=== PATIENT | male | born 1945 | race American Indian/Alaskan Native ===

== ENCOUNTER 2019-01-24 04:40 | Inpatient (IN) | payer MEDICARE, OTHER ==
[~2019-01-24 04:40] MED LIST: KETALAR ONE; ZEMURON IV ONE
[2019-01-24] MEDS ORDERED: NACL 0.9% 500 ML IV PRN (05:00)
[2019-01-24] MEDS ORDERED: SUBLIMAZE IV PRN (05:00)
[2019-01-24] MEDS ORDERED: MIDAZOLAM 100 MG in NACL 0.9% 80 ML IV SCH (05:00)
[2019-01-24] MEDS ORDERED: VASELINE LIP THERAPY TP PRN (05:00)
[2019-01-24] MEDS ORDERED: fentaNYL DRIP Premix 2,000 MCG/100 ML BAG IV SCH (05:00)
[2019-01-24] MEDS ORDERED: ARTIFICIAL TEARS OPHTH OINT OU PRN (05:00)
[2019-01-24] MEDS ORDERED: VERSED IV PRN (05:00)
[2019-01-24] MEDS ORDERED: NACL 0.9% 1000 ML IV ONE (05:04)
--- NOTE | 2019-01-24 05:54 | Emergency Department Report ---
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 As per EMS verbal report, the patient's called 911. EMS reports the patient was hypoxic in the field. EMS reports the patient had no trauma. EMS reports the patient was somnolent and obtunded in the field, and they placed a nasopharyngeal airway, and applied bag valve mask ventilation. Upon arrival to the emergency room, the patient is receiving bag assisted ventilation, is delirious and somnolent. He is not protecting his airway. He is placed on nasal cannula at 15 L/m, and continues to receive bag valve mask ventilation in conjunction. He is then sat up to 30, and his lungs are re current. He is then introduced with 300 mg of ketamine, direct laryngoscopy performed, however patient had laryngeal spasm. He is then paralyzed with 150 mg of rocuronium, and using video laryngoscopy, a 7.5 endotracheal tube is inserted, under direct visualization of the cords, with good postintubation color change, and appropriate breath sounds bilaterally. Postintubation x-ray confirms placement of endotracheal tube. No additional family is available at this time. Patient is currently intubated and sedated, x-ray of the chest appears to show a large right-sided pneumonia, left perihilar pneumonia. Discussed the case with critical care physician, Dr. Bar, who agrees with plan of admission to the intensive care unit, assuming no findings elucidated during his ER workup that would mandate transfer to another facility. -: This evening Severity scale (0 -10): 0 Quality: other Consistency: other Improves with: other Worsens with: other Associated Symptoms: other - Related Data Home Medications Medication Instructions Recorded Confirmed Last Taken Aspirin [Aspirin BABY CHEW TAB] 81 mg PO DAILY 09/13/14 09/13/14 09/13/14 Doxazosin Mesylate 8 mg PO DAILY 09/13/14 09/13/14 09/13/14 Lisinopril [Zestril TAB] 20 mg PO DAILY 09/13/14 09/13/14 09/13/14 Metoprolol [Lopressor TAB] 25 mg PO DAILY 09/13/14 09/13/14 09/13/14 Multivit-Min/FA/Lycopen/Lutein 1 each PO DAILY 09/13/14 09/13/14 09/13/14 [Century Adults 50+ Tablet] Olmesartan/Amlodipin/Hcthiazid 1 each PO DAILY 09/13/14 09/13/14 09/13/14 [Tribenzor 20-5-12.5 mg] glyBURIDE [Diabeta] 5 mg PO DAILY 09/13/14 09/13/14 09/13/14 Allergies Allergy/AdvReac Type Severity Reaction Status Date / Time No Known Allergies Allergy Verified 09/13/14 23:38 ED Review of Systems ROS: Stated complaint: UNRESPONSIVE Other details as noted in HPI Comment: Unobtainable due to pts medical conditions ED Past Medical Hx - Past Medical History Previous Medical History?: Yes Hx Hypertension: Yes Hx Diabetes: Yes Additional medical history: BORN w/PELVIC RT KIDNEY - Surgical History Past Surgical History?: Yes Additional Surgical History: RT ARM SURGERY 2013 - Social History Smoking Status: Unknown if ever smoked - Medications Home Medications: Home Medications Medication Instructions Recorded Confirmed Last Taken Type Aspirin [Aspirin BABY CHEW TAB] 81 mg PO DAILY 09/13/14 09/13/14 09/13/14 Histor y Doxazosin Mesylate 8 mg PO DAILY 09/13/14 09/13/14 09/13/14 History Lisinopril [Zestril TAB] 20 mg PO DAILY 09/13/14 09/13/14 09/13/14 History Metoprolol [Lopressor TAB] 25 mg PO DAILY 09/13/14 09/13/14 09/13/14 History Multivit-Min/FA/Lycopen/Lutein 1 each PO DAILY 09/13/14 09/13/14 09/13/14 History [Century Adults 50+ Tablet] Olmesartan/Amlodipin/Hcthiazid 1 each PO DAILY 09/13/14 09/13/14 09/13/14 History [Tribenzor 20-5-12.5 mg] glyBURIDE [Diabeta] 5 mg PO DAILY 09/13/14 09/13/14 09/13/14 History ED Physical Exam - General Limitations: Altered Mental Status General appearance: lethargic, obtunded, in distress, obese - Eye Eye exam: Present: normal appearance - ENT ENT exam: Present: mucous membranes dry - Neck Neck exam: Present: normal inspection - Respiratory Respiratory exam: Present: respiratory distress, decreased breath sounds - Cardiovascular Cardiovascular Exam: Present: regular rate, normal rhythm, normal heart sounds. Absent: bradycardia, tachycardia, irregular rhythm - GI/Abdominal GI/Abdominal exam: Present: soft. Absent: distended, tenderness, guarding, rebound, rigid, pulsatile mass - Rectal Rectal exam: Present: normal inspection - exam: Present: normal inspection External exam: Present: normal external exam - Extremities Exam Extremities exam: Present: pedal edema, other (2+ pulses noted in the bilateral upper, lower extremities. Compartments soft. No long bony tenderness. The pelvis is stable.). Absent: calf tenderness - Neurological Exam Neurological exam: Present: altered, other (occasionally moves 4 extremities prior to intubation. Makes nonsensical sounds. Unable to complete detailed neurologic examination secondary to delirium) - Psychiatric Psychiatric exam: Present: agitated - Skin Skin exam: Present: dry ED Course Vital Signs 01/24/19 01/24/19 05:14 05:29 Pulse Rate 93 H Pulse Rate [ 87 Intra-Procedure ] Pulse Rate [ 89 Post-Procedure] Pulse Rate [Pre 104 H -Procedure] Respiratory 8 L Rate [Intra- Procedure] Respiratory 19 Rate [Post- Procedure] Respiratory 34 H Rate [Pre- Procedure] Blood Pressure 210/72 Blood Pressure 160/75 [Intra- Procedure] Blood Pressure 167/78 [Post-Procedure ] Blood Pressure 186/113 [Pre-Procedure] O2 Sat by Pulse 100 Oximetry O2 Sat by Pulse 100 Oximetry [ Intra-Procedure ] O2 Sat by Pulse 93 Oximetry [Post -Procedure] O2 Sat by Pulse 95 Oximetry [Pre- Procedure] - Reevaluation(s) Reevaluation #1: 01/24/19 05:56 Differential diagnosis, including but not limited to: Pneumonia, pulmonary embolus, intracranial hemorrhage, bacteremia, viremia, uremia, urinary tract infection Assessment and plan: 73-year-old gentleman, tachycardic, hypoxic with respiratory failure, felt to be hypothermic, meets sepsis criteria. The patient will be resuscitated according to the sepsis pathway. Given appropriate antibiotic therapy for presumed community-acquired pneumonia. CT scan of the brain, chest are pending at this time. Laboratory studies pending at this time. care transferred to Dr Shari Bee, to follow up on laboratory studies and CT scan findings, and contact the inpatient team to arrange admission once initial diagnostics have resulted. No family available at this time, upperis markedly guarded. - Intubation Time Out Performed: No (emergency situation) Sedative: Ketamine Mg Given: 300 Paralytic: Rocuronium Mg Given: 150 Laryngoscope: fiberoptic video scope Size: 4 Assist Device Used: other ET Tube Size: 7.5 Tube Secured Depth (cm): 23 Tube Secured Location: teeth Tube Placement Confirmation: visualized tube passing t, equal breath sounds bilat, no breath sounds over epi, confirmation by capnometr Patient Tolerated Procedure: well Intubation Complications: difficult intubation ED Medical Decision Making - Lab Data Vital Signs 01/24/19 01/24/19 05:14 05:29 Pulse Rate 93 H Pulse Rate [ 87 Intra-Procedure ] Pulse Rate [ 89 Post-Procedure] Pulse Rate [Pre 104 H -Procedure] Respiratory 8 L Rate [Intra- Procedure] Respiratory 19 Rate [Post- Procedure] Respiratory 34 H Rate [Pre- Procedure] Blood Pressure 210/72 Blood Pressure 160/75 [Intra- Procedure] Blood Pressure 167/78 [Post-Procedure ] Blood Pressure 186/113 [Pre-Procedure] O2 Sat by Pulse 100 Oximetry O2 Sat by Pulse 100 Oximetry [ Intra-Procedure ] O2 Sat by Pulse 93 Oximetry [Post -Procedure] O2 Sat by Pulse 95 Oximetry [Pre- Procedure] Critical Care Time: Yes Critical care time in (mins) excluding proc time.: 45 Critical care attestation.: If time is entered above; I have spent that time in minutes in the direct care of this critically ill patient, excluding procedure time. ED Disposition Clinical Impression: Systemic inflammatory response syndrome (SIRS), Respiratory failure Disposition: -09 OP ADMIT IP TO THIS HOSP Is pt being admited?: Yes Condition: Critical Referrals: GELA RESTREPO MD [Primary Care Provider] - 3-5 Days
[2019-01-24] MEDS ORDERED: NACL 0.9% 1000 ML 1,000 ML IV ONE (05:58)
[2019-01-24 05:59] LABS: Albumin 4.1 g/dL (3.9-5); Calcium 8.4 mg/dL (8.4-10.2)
[2019-01-24] MEDS ORDERED: ZITHROMAX 500 MG in NACL 0.9% 250ML 250 ML IV SCH (06:00)
[2019-01-24] MEDS ORDERED: ROCEPHIN/NS 2 GM/100 ML 2 GM/100 ML BAG IV ONE (06:00)
[2019-01-24] MEDS ORDERED: ZITHROMAX 500 MG in NACL 0.9% 250ML 250 ML IV ONE (06:00)
[2019-01-24 06:02] LABS: Basophils % (Auto) 0.5 % (0.0-1.8); Eosinophils # (Auto) 0.2 K/mm3 (0.0-0.4); Eosinophils % (Auto) 3.6 % (0.0-4.3); Hemoglobin 10.4 gm/dl (11.8-15.2); Lymphocytes # (Auto) 0.7 K/mm3 (1.2-5.4); Lymphocytes % (Auto) 11.1 % (13.4-35.0); Mean Corpuscular HGB Conc 35 % (32-34); Mean Corpuscular Volume 88 fl (84-94); Monocytes # (Auto) 0.6 K/mm3 (0.0-0.8); Monocytes % (Auto) 8.7 % (0.0-7.3); Platelet Count 164 K/mm3 (140-440); Red Cell Distribution Width 13.6 % (13.2-15.2)
[2019-01-24] MEDS ORDERED: NORMODYNE IV ONE (06:06)
[2019-01-24 06:07] LABS: INR 1.03 (0.87-1.13)
[2019-01-24 06:11] LABS: Bilirubin,Urine NEG (Negative); Blood,Urine MOD (Negative); Color,Urine Straw (Yellow); Granular Casts,Urine 6 /LPF; Hyaline Casts,Urine 1 /LPF; Mucus,Urine FEW /HPF; Urobilinogen,Urine < 2.0 mg/dL (<2.0)
[2019-01-24 06:24] LABS: RBC,Urine > 182.0 /HPF (0.0-6.0)
[2019-01-24] MEDS: CARDENE 50 MG in NACL 0.9% 250ML 230 ML IV SCH ×2 (07:45→17:18)
--- NOTE | 2019-01-24 08:48 | History and Physical Report ---
History of Present Illness Date of examination: 01/24/19 Date of admission: 01/24/19 07:42 Chief complaint: Unresponsiveness and acute respiratory failure, History of present illness: History obtained from ER medical records Patient intubated unable to give history, no family available 73-year-old morbidly obese male patient with significant history of diabetes was found appended hypoxic and unresponsive Severe shortness of breath by EMS, placed nasopharyngeal airway Patient was brought to the emergency room with altered level of consciousness and responsiveness and acute respiratory failure patient was found to be severely hypoxemic, promptly intubated by the ER physician Patient was noted to have hypertensive emergency, with very high blood pressures No other history available Past History Past Medical History: diabetes, hypertension Past Surgical History: No surgical history Social history: full code. denies: smoking, alcohol abuse, IV drug use Family history: no significant family history Medications and Allergies Allergies Allergy/AdvReac Type Severity Reaction Status Date / Time No Known Allergies Allergy Verified 09/13/14 23:38 Home Medications Medication Instructions Recorded Confirmed Last Taken Type Aspirin [Aspirin BABY CHEW TAB] 81 mg PO DAILY 09/13/14 01/24/19 09/13/14 History Doxazosin Mesylate 8 mg PO DAILY 09/13/14 01/24/19 09/13/14 History Lisinopril [Zestril TAB] 20 mg PO DAILY 09/13/14 01/24/19 09/13/14 History Metoprolol [Lopressor TAB] 25 mg PO DAILY 09/13/14 01/24/19 09/13/14 History Multivit-Min/FA/Lycopen/Lutein 1 each PO DAILY 09/13/14 01/24/19 09/13/14 History [Century Adults 50+ Tablet] Olmesartan/Amlodipin/Hcthiazid 1 each PO DAILY 09/13/14 01/24/19 09/13/14 History [Tribenzor 20-5-12.5 mg] glyBURIDE [Diabeta] 5 mg PO DAILY 09/13/14 01/24/19 09/13/14 History Active Meds: Active Medications Fentanyl (Sublimaze) 50 mcg IV Q10MIN PRN PRN Reason: ANALGESIA Last Admin: 01/24/19 06:26 Dose: 50 mcg Documented by: Hydrophilic Ointment (Vaseline Lip Therapy) 1 applic TP Q2HR PRN PRN Reason: Dry Lips Fentanyl Citrate (Fentanyl Drip Premix) 2,000 mcg in 100 mls @ 6.804 mls/hr IV TITR ESCOBAR; Protocol Last Titration: 01/24/19 08:47 Dose: 0.29 mcg/kg/hr, 2 mls/hr Documented by: Midazolam HCl 100 mg/ Sodium (Chloride) 100 mls @ 2 mls/hr IV TITR ESCOBAR; Protocol Last Titration: 01/24/19 08:02 Dose: 3 mg/hr, 3 mls/hr Documented by: Nicardipine HCl 50 mg/ Sodium (Chloride) 250 mls @ 25 mls/hr IV TITR ESCOBAR; Protocol Last Titration: 01/24/19 08:19 Dose: 7.5 mg/hr, 37.5 mls/hr Documented by: Midazolam HCl (Versed) 2 mg IV Q10MIN PRN PRN Reason: Sedation Last Admin: 01/24/19 06:11 Dose: 2 mg Documented by: Multi-Ingred Cream/Lotion/Oil/Oint (Artificial Tears Ophth Oint) 1 applic OU Q4HR PRN PRN Reason: Dry Eye(s) Sodium Chloride (Nacl 0.9% 500 Ml) 5 ml IV DIRECT PRN 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 Systems ROS unobtainable: due to mental status Exam - Constitutional Vitals: Temp Pulse Resp BP Pulse Ox 89 20 189/71 96 01/24/19 08:25 01/24/19 08:25 01/24/19 08:25 01/24/19 08:25 General appearance: Present: mild distress, well-nourished, obese (morbidly obese) - EENT Eyes: Present: PERRL, EOM intact - Neck Neck: Present: supple - Respiratory Respiratory effort: labored Respiratory: bilateral: diminished, rhonchi, negative: rales, wheezing - Cardiovascular Rhythm: regular Heart Sounds: Present: S1 & S2 - Extremities Extremities: no ischemia Extremity abnormal: edema - Abdominal General gastrointestinal: Present: soft, non-tender, non-distended, normal bowel sounds Results - Labs CBC & Chem 7: 01/24/19 05:20 01/24/19 05:20 Labs: Abnormal lab results 01/24/19 01/24/19 01/24/19 Range/Units 05:20 05:20 05:20 RBC 3.40 L (3.65-5.03) M/mm3 Hgb 10.4 L (11.8-15.2) gm/dl Hct 30.0 L (35.5-45.6) % MCHC 35 H (32-34) % Lymph % (Auto) 11.1 L (13.4-35.0) % [place] % (Auto) 8.7 H (0.0-7.3) % Lymph # 0.7 L (1.2-5.4) K/mm3 Seg Neutrophils % 76.1 H (40.0-70.0) % POC ABG pH (7.35-7.45) POC ABG pCO2 (35-45) POC ABG pO2 (80-105) Carbon Dioxide 20 L (22-30) mmol/L BUN 69 H (9-20) mg/dL Creatinine 6.5 H (0.8-1.5) mg/dL Glucose 213 H (75-100) mg/dL Magnesium 2.70 H (1.7-2.3) mg/dL 01/24/19 01/24/19 Range/Units 05:45 08:26 RBC (3.65-5.03) M/mm3 Hgb (11.8-15.2) gm/dl Hct (35.5-45.6) % MCHC (32-34) % Lymph % (Auto) (13.4-35.0) % [place] % (Auto) (0.0-7.3) % Lymph # (1.2-5.4) K/mm3 Seg Neutrophils % (40.0-70.0) % POC ABG pH 7.285 L 7.349 L (7.35-7.45) POC ABG pCO2 50.6 H (35-45) POC ABG pO2 337 H (80-105) Carbon Dioxide (22-30) mmol/L BUN (9-20) mg/dL Creatinine (0.8-1.5) mg/dL Glucose (75-100) mg/dL Magnesium (1.7-2.3) mg/dL Assessment and Plan --Acute hypoxic hypercapnic respiratory failure; requiring intubation Continue ventilatory support, nebulizers, IV steroids, IV antibiotics ED already consulted pulmonary critical --Hypertensive emergency; resume multiple antihypertensives IV hydralazine, cardine drip per protocol --Metabolic encephalopathy; multifactorial Closely monitor --Acute kidney injury; secondary to ATN Creatinine 6.5, unknown baseline, gentle hydration, nephrology already consulted Avoid nephrotoxins, renal ultrasound, supportive care --Type 2 diabetes mellitus; Accu-Chek sliding scale coverage and ADA diet insulin as needed --DVT prophylaxis; heparin renal dose --Full CODE STATUS Admit to ICU, critical care and nephrology already consulted Critical care time 55 minutes.
[2019-01-24] MEDS ORDERED: APRESOLINE IV ONE (09:30)
[2019-01-24] MEDS ORDERED: ZESTRIL PO SCH (10:00)
--- NOTE | 2019-01-24 10:06 | Cat Scan Report ---
CT HEAD WITHOUT CONTRAST: HISTORY: Altered mental status, respiratory failure. TECHNIQUE: Sequential CT images without contrast. FINDINGS: Mild diffuse volume loss and chronic ischemic changes in the white matter are identified. Subtle chronic cortical infarcts are identified in the left frontal and parietal cortex. This appears to be within the left watershed region. A chronic 8mm infarct is noted in the lateral left basal ganglia. There is no evidence for hemorrhage, mass or extra-axial fluid collection. No large areas of acute ischemia is suspected on noncontrast CT. Ventricular size is within normal limits. There is mild diffuse mucosal thickening throughout the ethmoid and maxillary sinuses. The remaining sinuses and mastoid air cells are clear. IMPRESSION: Evidence of atrophy and microangiopathic ischemic disease. 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 No acute intracranial process is identified.
--- NOTE | 2019-01-24 10:09 | Cat Scan Report ---
CT CHEST WITHOUT CONTRAST: HISTORY: Respiratory failure. COMPARISON: none. TECHNIQUE: Helical CT in 1.25mm intervals without IV contrast. Sagittal and coronal reformatted images. FINDINGS: Thyroid gland: Normal. Tracheobronchial tree: Normal. An endotracheal tube is in good position. Esophagus: Normal. A nasogastric tube terminates in the distal stomach. Heart: Borderline heart size. Pericardium: Normal. Mediastinum: Mild aortic calcifications. No mass or adenopathy. Lung [place]: Mild to moderate bilateral pulmonary edema is suspected. There is compressive atelectasis of both lower lobes. The anterior lungs are adequately aerated. No obvious mass or pneumonia. Pleural Spaces: Moderate layering left pleural effusion. Mild layering right pleural effusion. Musculoskeletal: Mild thoracic spondylosis. No fracture or suspicious bony lesion is identified. IMPRESSION: Borderline heart size, pulmonary congestion and bilateral pleural effusions suggesting CHF. Compressive atelectasis of both lower lobes.
--- NOTE | 2019-01-24 10:56 | Consultation ---
History of Present Illness - Reason for Consult Consult date: 01/24/19 acute renal failure, chronic renal failure - History of Present Illness This is a 73-year-old male who presented to the E.R via EMS for shortness of breath. When EMS arrived patient was found to be Hypoxic with oxygen level in the 80's and somnolent and was subsequently intubated for airway protection. On evaluation patient was found to be in Hypertensive Emergency with BP-226/119. CXR revealed Mild- moderate pulmonary venous congestion. Pertinent labs revealed an elevated serum creatinine of 6.5 and BUN level of 69. Baseline serum creatinine unknown. Patient has history of Hypertension and Diabetes Mellitus. Patient is seen in E.R sedated and intubated. No family at bedside. Called to spoke with POA his niece Marbella Chávez, however phone went to voicemail and her voicemail is full. We are being consulted for management of this patient's Advanced Renal Failure. Past History Past Medical History: diabetes, hypertension Past Surgical History: No surgical history Social history: full code. denies: smoking, alcohol abuse, IV drug use Family history: no significant family history Medications and Allergies Allergies Allergy/AdvReac Type Severity Reaction Status Date / Time No Known Allergies Allergy Verified 09/13/14 23:38 Home Medications Medication Instructions Recorded Confirmed Last Taken Type Aspirin [Aspirin BABY CHEW TAB] 81 mg PO DAILY 09/13/14 01/24/19 09/13/14 History Doxazosin Mesylate 8 mg PO DAILY 09/13/14 01/24/19 09/13/14 History Lisinopril [Zestril TAB] 20 mg PO DAILY 09/13/14 01/24/19 09/13/14 History Metoprolol [Lopressor TAB] 25 mg PO DAILY 09/13/14 01/24/19 09/13/14 History Multivit-Min/FA/Lycopen/Lutein 1 each PO DAILY 09/13/14 01/24/19 09/13/14 Hi story [Century Adults 50+ Tablet] Olmesartan/Amlodipin/Hcthiazid 1 each PO DAILY 09/13/14 01/24/19 09/13/14 History [Tribenzor 20-5-12.5 mg] glyBURIDE [Diabeta] 5 mg PO DAILY 09/13/14 01/24/19 09/13/14 History Active Meds: Active Medications Aspirin (Baby Aspirin) 81 mg PO DAILY ESCOBAR Fentanyl (Sublimaze) 50 mcg IV Q10MIN PRN PRN Reason: ANALGESIA Last Admin: 01/24/19 06:26 Dose: 50 mcg Documented by: Hydralazine HCl (Apresoline) 20 mg IV Q4HR PRN PRN Reason: Hypertension Hydrophilic Ointment (Vaseline Lip Therapy) 1 applic TP Q2HR PRN PRN Reason: Dry Lips Fentanyl Citrate (Fentanyl Drip Premix) 2,000 mcg in 100 mls @ 6.804 mls/hr IV TITR ESCOBAR; Protocol Last Titration: 01/24/19 09:45 Dose: 4 mcg/kg/hr, 27.216 mls/hr Documented by: Midazolam HCl 100 mg/ Sodium (Chloride) 100 mls @ 2 mls/hr IV TITR ESCOBAR; Protocol Last Titration: 01/24/19 08:02 Dose: 3 mg/hr, 3 mls/hr Documented by: Nicardipine HCl 50 mg/ Sodium (Chloride) 250 mls @ 25 mls/hr IV TITR ESCOBAR; Protocol Last Titration: 01/24/19 10:40 Dose: 10 mg/hr, 50 mls/hr Documented by: Lisinopril (Zestril) 20 mg PO DAILY ESCOBAR Metoprolol Tartrate (Lopressor) 25 mg PO DAILY ESCOBAR Midazolam HCl (Versed) 2 mg IV Q10MIN PRN PRN Reason: Sedation Last Admin: 01/24/19 06:11 Dose: 2 mg Documented by: Multi-Ingred Cream/Lotion/Oil/Oint (Artificial Tears Ophth Oint) 1 applic OU Q4HR PRN PRN Reason: Dry Eye(s) Sodium Chloride (Nacl 0.9% 500 Ml) 5 ml IV DIRECT 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 ROS unobtainable: due to endotracheal tube, due to mental status Exam - Vital Signs Vital signs: Vital Signs Pulse Resp 105 H 36 H 01/24/19 04:44 01/24/19 04:44 - General Appearance General appearance: sedated on ventilator, intubated EENT: ATNC Neck: Present: neck supple Respiratory: Decreased Breath Sounds Heart: regular, S1S2 Gastrointestinal: Present: normoactive bowel sounds Integumentary: warm and dry, chronic venous stasis Neurologic: other (Sedated and intubated) Musculoskeletal: Present: joint swelling, other (Has 1-2+ edema to bilateral lower extremities) Results - Lab Results 01/24/19 05:20 01/24/19 05:20 Most recent lab results Calcium 8.4 mg/dL (8.4-10.2) 01/24/19 05:20 Magnesium 2.70 mg/dL (1.7-2.3) H 01/24/19 05:20 Assessment and Plan Severe Renal Failure, could have CKD component from DM and HTN: Volume overloaded: -Baseline serum creatinine unknown -Current serum creatinine is 6.5, BUN 69, GFR 10 ml/min -D/C Lisinopril -Obtain renal ultrasound -Obtain urine lytes -[id number] bilateral pulmonary venous congestion -No IVF due to volume overload -Give Lasix 40 mg IV x 1 -Given advanced renal failure and volume overload, patient may require hemodialysis initiation -Placed call to Marbella CABRAL, no answer when called and voicemail is full. -Will monitor renal function closely Acute hypoxic hypercapnic respiratory failure: -Intubated on vent support -As per Pulmonary Hypertensive emergency: -On Cardizem drip -Monitor blood pressures Type 2 diabetes mellitus -Insulin as per primary team
[2019-01-24] MEDS ORDERED: BABY ASPIRIN ONE (12:33)
[2019-01-24] MEDS ORDERED: LOPRESSOR ONE (12:34)
[2019-01-24] MEDS ORDERED: fentaNYL DRIP Premix 2,000 MCG/100 ML BAG IV ONE (12:37)
[2019-01-24] MEDS ORDERED: LASIX IV ONE (13:00)
[2019-01-24] MEDS: BABY ASPIRIN PO SCH (13:39)
[2019-01-24] MEDS: LOPRESSOR PO SCH (13:39)
[2019-01-24] MEDS ORDERED: LASIX ONE (13:44)
[2019-01-24 13:47] LABS: Alanine Aminotransferase 17 units/L (7-56); Albumin 3.6 g/dL (3.9-5)
[2019-01-24 13:48] LABS: Hepatitis B Surface Antigen Non-Reactive (Negative); Hepatitis C Virus Antibody Non-Reactive (NonReactive)
[2019-01-24 13:49] LABS: Bilirubin,Direct < 0.2 mg/dL (0-0.2)
--- NOTE | 2019-01-24 14:05 | Consultation ---
History of Present Illness Consult date: 01/24/19 Requesting physician: ROSALIND SCHWAB Past History Past Medical History: diabetes, hypertension Past Surgical History: No surgical history Social history: full code. denies: smoking, alcohol abuse, IV drug use Family history: no significant family history Medications and Allergies Allergies Allergy/AdvReac Type Severity Reaction Status Date / Time No Known Allergies Allergy Verified 09/13/14 23:38 Home Medications Medication Instructions Recorded Confirmed Last Taken Type Aspirin [Aspirin BABY CHEW TAB] 81 mg PO DAILY 09/13/14 01/24/19 09/13/14 History Doxazosin Mesylate 8 mg PO DAILY 09/13/14 01/24/19 09/13/14 History Lisinopril [Zestril TAB] 20 mg PO DAILY 09/13/14 01/24/19 09/13/14 History Metoprolol [Lopressor TAB] 25 mg PO DAILY 09/13/14 01/24/19 09/13/14 History Multivit-Min/FA/Lycopen/Lutein 1 each PO DAILY 09/13/14 01/24/19 09/13/14 Histor y [Century Adults 50+ Tablet] Olmesartan/Amlodipin/Hcthiazid 1 each PO DAILY 09/13/14 01/24/19 09/13/14 History [Tribenzor 20-5-12.5 mg] glyBURIDE [Diabeta] 5 mg PO DAILY 09/13/14 01/24/19 09/13/14 History Active Meds: Active Medications Aspirin (Baby Aspirin) 81 mg PO DAILY ESCOBAR Last Admin: 01/24/19 13:39 Dose: 81 mg Documented by: Fentanyl (Sublimaze) 50 mcg IV Q10MIN PRN PRN Reason: ANALGESIA Last Admin: 01/24/19 06:26 Dose: 50 mcg Documented by: Hydralazine HCl (Apresoline) 20 mg IV Q4HR PRN PRN Reason: Hypertension Hydrophilic Ointment (Vaseline Lip Therapy) 1 applic TP Q2HR PRN PRN Reason: Dry Lips Fentanyl Citrate (Fentanyl Drip Premix) 2,000 mcg in 100 mls @ 6.804 mls/hr IV TITR ESCOBAR; Protocol Last Titration: 01/24/19 13:47 Dose: Infused Documented by: Midazolam HCl 100 mg/ Sodium (Chloride) 100 mls @ 2 mls/hr IV TITR ESCOBAR; Protocol Last Titration: 01/24/19 08:02 Dose: 3 mg/hr, 3 mls/hr Documented by: Nicardipine HCl 50 mg/ Sodium (Chloride) 250 mls @ 25 mls/hr IV TITR ESCOBAR; Protocol Last Titration: 01/24/19 11:08 Dose: 12.5 mg/hr, 62.5 mls/hr Documented by: Metoprolol Tartrate (Lopressor) 25 mg PO DAILY ESCOBAR Last Admin: 01/24/19 13:39 Dose: 25 mg Documented by: Midazolam HCl (Versed) 2 mg IV Q10MIN PRN PRN Reason: Sedation Last Admin: 01/24/19 06:11 Dose: 2 mg Documented by: Multi-Ingred Cream/Lotion/Oil/Oint (Artificial Tears Ophth Oint) 1 applic OU Q4HR PRN PRN Reason: Dry Eye(s) Sodium Chloride (Nacl 0.9% 500 Ml) 5 ml IV DIRECT PRN 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 (12.2-14.9) 01/24/19 05:20 INR 1.03 (0.87-1.13) 01/24/19 05:20 Abnormal lab findings: Abnormal Labs 01/24/19 01/24/19 01/24/19 05:20 05:20 05:20 RBC 3.40 L Hgb 10.4 L Hct 30.0 L MCHC 35 H Lymph % (Auto) 11.1 L [place] % (Auto) 8.7 H Lymph # 0.7 L Seg Neutrophils % 76.1 H POC ABG pH POC ABG pCO2 POC ABG pO2 Carbon Dioxide 20 L BUN 69 H Creatinine 6.5 H Glucose 213 H Magnesium 2.70 H Total Protein Albumin 01/24/19 01/24/19 01/24/19 05:45 08:26 12:00 RBC Hgb Hct MCHC Lymph % (Auto) [place] % (Auto) Lymph # Seg Neutrophils % POC ABG pH 7.285 L 7.349 L POC ABG pCO2 50.6 H POC ABG pO2 337 H Carbon Dioxide BUN Creatinine Glucose Magnesium Total Protein 5.5 L D Albumin 3.6 L
[2019-01-24] MEDS ORDERED: ZESTRIL ONE (14:38)
[2019-01-24 15:53] LABS: Creatinine,Urine 62.7 mg/dL (0.1-20.0)
--- NOTE | 2019-01-24 17:25 | XRay Report ---
PROCEDURE: XR CHEST 1V AP TECHNIQUE: Frontal portable views of the chest HISTORY: ETT placement COMPARISONS: None FINDINGS: The tip of the endotracheal tube is below the level of the clavicles and above the level of the kenny a. The tip and side-port of the esophagogastric tube are projected below the level of the diaphragm. There are areas of bilateral airspace disease, right greater than left. There is no evidence of pneumothorax or pleural fluid collection. The cardiac silhouette appears to be normal size. The thoracic aorta is tortuous. The bony structures are unremarkable. Visualization of detail of the thoracic spine is limited. IMPRESSION: 1. Tip of endotracheal tube projected in satisfactory position. 2. Tip and side-port of the esophagogastric tube projected below the level of the diaphragm. 3. Bilateral airspace disease. This document is electronically signed by Merlyn Montiel MD., January 24 2019 05:23:09 PM ET
[2019-01-24] MEDS ORDERED: ROCEPHIN/NS 2 GM/100 ML 2 GM/100 ML BAG IV SCH (20:00)
--- NOTE | 2019-01-24 22:30 | Ultrasound Report ---
PROCEDURE: US RENAL BILAT TECHNIQUE: Real-time sonography in multiple planes of the kidneys, ureters and urinary bladder was p erformed with image documentation. HISTORY: renal failure COMPARISONS: None . FINDINGS: RIGHT kidney: It is located in the right side pelvis. Diffusely increased echotexture. No calculi or hydronephrosis.. Length: 8.3 x 3.7 x 3.7 cm. LEFT kidney: Diffusely increased echotexture. No calculi or hydronephrosis.. Length: 8.8 x 3.9 x 5 c m. Bladder: Empty with a Hernandez bulb in situ. 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 This document is electronically signed by Dhaval Kincaid MD., January 24 2019 10:27:42 PM ET
[2019-01-25] MEDS ORDERED: fentaNYL DRIP Premix 2,000 MCG/100 ML BAG IV ONE ×3 (01:51→11:25)
--- NOTE | 2019-01-25 02:20 | XRay Report ---
PROCEDURE: XR CHEST 1V AP TECHNIQUE: Chest radiograph single view. HISTORY: follow up respiratory failure COMPARISONS: None . FINDINGS: Heart: Normal. Mediastinum/Vessels: Normal. Lungs/Pleural space: Slight increased markings in both lungs are noted. The findings are most consis tent with mild infiltrates.. Bony thorax: No acute osseous abnormality. Life support devices: The endotracheal tube ends 4 cm above the bruno. A nasogastric tube ends below the hemidiaphragms.. IMPRESSION: Slight infiltrates both lower lungs. The endotracheal tube and nasogastric tube are prop erly positioned.. This document is electronically signed by Zohreh Munoz DO., January 25 2019 02:18:49 AM ET
[2019-01-25 04:25] LABS: Basophils % (Auto) 0.5 % (0.0-1.8); Eosinophils # (Auto) 0.1 K/mm3 (0.0-0.4); Eosinophils % (Auto) 0.7 % (0.0-4.3); Hematocrit 25.9 % (35.5-45.6); Hemoglobin 8.8 gm/dl (11.8-15.2); Lymphocytes # (Auto) 0.6 K/mm3 (1.2-5.4); Lymphocytes % (Auto) 8.1 % (13.4-35.0); Mean Corpuscular HGB Conc 34 % (32-34); Mean Corpuscular Volume 90 fl (84-94); Monocytes # (Auto) 1.1 K/mm3 (0.0-0.8); Monocytes % (Auto) 14.7 % (0.0-7.3); Platelet Count 154 K/mm3 (140-440); Red Blood Count 2.88 M/mm3 (3.65-5.03); Red Cell Distribution Width 14.1 % (13.2-15.2)
[2019-01-25 04:44] LABS: BUN/Creatinine Ratio 9; Blood Urea Nitrogen 76 mg/dL (9-20); Calcium 7.7 mg/dL (8.4-10.2); Hemolysis Index 4
[2019-01-25 04:48] LABS: Alanine Aminotransferase < 5 units/L (7-56)
[2019-01-25] MEDS: CARDENE 50 MG in NACL 0.9% 250ML 230 ML IV SCH ×3 (07:05→17:30)
[2019-01-25] MEDS ORDERED: ZITHROMAX 500 MG in NACL 0.9% 250ML 250 ML IV SCH (10:00)
[2019-01-25] MEDS ORDERED: SUBLIMAZE IV PRN (11:26)
--- NOTE | 2019-01-25 11:26 | Progress Note ---
Assessment and Plan 73 y/o male with renal failure, acute respiratory failure and altered mental state 1. Continue vent support and wean FiO2 for sats >88% 2. Follow up renal recs, appears patient may need HD 3. Please do not titrate up versed given renal failure, will add some prn Fentanyl for pain control and additional sedation if needed. 4. Will discontinue Fent drip 5. BP control per renal CCT 31 minutes Subjective Date of service: 01/25/19 Interval history: Oxygenation is better today. sedated on versed 2. Renal function is worse. Objective Vital Signs - 12hr 01/24/19 01/24/19 01/25/19 23:30 23:46 00:00 Pulse Rate 71 71 71 Respiratory 20 20 20 Rate Blood Pressure 167/65 167/65 183/65 Blood Pressure [Right] O2 Sat by Pulse 98 99 100 Oximetry 01/25/19 01/25/19 01/25/19 00:16 00:30 00:46 Pulse Rate 68 66 70 Respiratory 20 20 21 Rate Blood Pressure 183/65 169/61 169/61 Blood Pressure [Right] O2 Sat by Pulse 100 100 100 Oximetry 01/25/19 01/25/19 01/25/19 01:00 01:16 01:30 Pulse Rate 67 66 68 Respiratory 20 20 20 Rate Blood Pressure 147/64 147/64 149/68 Blood Pressure [Right] O2 Sat by Pulse 100 100 100 Oximetry 01/25/19 01/25/19 01/25/19 01:46 02:00 02:08 Pulse Rate 94 H 77 71 Respiratory 22 20 Rate Blood Pressure 149/68 149/68 136/50 Blood Pressure [Right] O2 Sat by Pulse 100 99 99 Oximetry 01/25/19 01/25/19 01/25/19 02:16 02:30 02:46 Pulse Rate 65 64 65 Respiratory 20 20 20 Rate Blood Pressure 136/50 144/59 144/59 Blood Pressure [Right] O2 Sat by Pulse 99 100 99 Oximetry 01/25/19 01/25/19 01/25/19 03:00 03:16 03:30 Pulse Rate 66 66 62 Respiratory 20 20 20 Rate Blood Pressure 141/62 141/62 151/62 Blood Pressure [Right] O2 Sat by Pulse 100 99 100 Oximetry 01/25/19 01/25/19 01/25/19 03:46 04:00 04:16 Pulse Rate 64 63 64 Respiratory 20 20 20 Rate Blood Pressure 151/62 148/63 148/63 Blood Pressure [Right] O2 Sat by Pulse 100 100 99 Oximetry 01/25/19 01/25/19 01/25/19 04:30 04:46 05:00 Pulse Rate 65 65 63 Respiratory 20 21 20 Rate Blood Pressure 129/63 129/63 149/65 Blood Pressure [Right] O2 Sat by Pulse 98 100 99 Oximetry 01/25/19 01/25/19 01/25/19 05:16 05:30 05:46 Pulse Rate 65 62 66 Respiratory 20 20 Rate Blood Pressure 149/65 153/70 153/70 Blood Pressure [Right] O2 Sat by Pulse 100 100 100 Oximetry 01/25/19 01/25/19 01/25/19 06:00 06:16 06:30 Pulse Rate 64 67 66 Respiratory 20 20 20 Rate Blood Pressure 152/66 170/72 158/68 Blood Pressure [Right] O2 Sat by Pulse 100 100 99 Oximetry 01/25/19 01/25/19 01/25/19 07:00 07:30 07:52 Pulse Rate 61 62 65 Respiratory 20 20 Rate Blood Pressure 132/60 143/56 143/56 Blood Pressure [Right] O2 Sat by Pulse 99 99 98 Oximetry 01/25/19 01/25/19 01/25/19 08:00 08:30 09:00 Pulse Rate 62 63 59 L Respiratory 20 20 20 Rate Blood Pressure 152/61 154/68 142/64 Blood Pressure [Right] O2 Sat by Pulse 98 97 98 Oximetry 01/25/19 01/25/19 01/25/19 09:30 10:00 10:20 Pulse Rate 58 L 62 Respiratory 20 20 Rate Blood Pressure 139/64 Blood Pressure 135/63 [Right] O2 Sat by Pulse 96 97 98 Oximetry CBC and BMP: 01/25/19 04:12 01/25/19 04:12 ABG, PT/INR, D-dimer: ABG POC ABG pH 7.384 (7.35-7.45) 01/25/19 06:20 POC ABG pCO2 32.9 (35-45) L 01/25/19 06:20 POC ABG pO2 114 (80-105) H 01/25/19 06:20 POC ABG HCO3 19.7 (22-26 mml/L) 01/25/19 06:20 POC ABG Total CO2 21 (23-27mmol/L) 01/25/19 06:20 POC ABG O2 Sat 98 01/25/19 06:20 PT/INR, D-dimer PT 14.1 Sec. (12.2-14.9) 01/24/19 05:20 INR 1.03 (0.87-1.13) 01/24/19 05:20 Abnormal lab findings: Abnormal Labs 01/24/19 01/24/19 01/24/19 05:20 05:20 05:20 RBC 3.40 L Hgb 10.4 L Hct 30.0 L MCHC 35 H Lymph % (Auto) 11.1 L [place] % (Auto) 8.7 H Lymph # 0.7 L [place] # Seg Neutrophils % 76.1 H POC ABG pH POC ABG pCO2 POC ABG pO2 Potassium Carbon Dioxide 20 L BUN 69 H Creatinine 6.5 H Glucose 213 H Calcium Magnesium 2.70 H ALT Total Protein Albumin Urine Creatinine Urine Total Protein 01/24/19 01/24/19 01/24/19 05:45 08:26 12:00 RBC Hgb Hct MCHC Lymph % (Auto) [place] % (Auto) Lymph # [place] # Seg Neutrophils % POC ABG pH 7.285 L 7.349 L POC ABG pCO2 50.6 H POC ABG pO2 337 H Potassium Carbon Dioxide BUN Creatinine Glucose Calcium Magnesium ALT Total Protein 5.5 L D Albumin 3.6 L Urine Creatinine Urine Total Protein 01/24/19 01/25/19 01/25/19 12:53 04:12 04:12 RBC 2.88 L Hgb 8.8 L Hct 25.9 L MCHC Lymph % (Auto) 8.1 L [place] % (Auto) 14.7 H Lymph # 0.6 L [place] # 1.1 H Seg Neutrophils % 76.0 H POC ABG pH POC ABG pCO2 POC ABG pO2 Potassium 5.2 H Carbon Dioxide 19 L BUN 76 H Creatinine 8.1 H Glucose Calcium 7.7 L Magnesium ALT < 5 L Total Protein 5.5 L Albumin 3.0 L Urine Creatinine 62.7 H Urine Total Protein 323 H 01/25/19 06:20 RBC Hgb Hct MCHC Lymph % (Auto) [place] % (Auto) Lymph # [place] # Seg Neutrophils % POC ABG pH POC ABG pCO2 32.9 L POC ABG pO2 114 H Potassium Carbon Dioxide BUN Creatinine Glucose Calcium Magnesium ALT Total Protein Albumin Urine Creatinine Urine Total Protein
[2019-01-25] MEDS: BABY ASPIRIN PO SCH (12:05)
[2019-01-25] MEDS ORDERED: BABY ASPIRIN ONE (12:48)
[2019-01-25] MEDS ORDERED: LOPRESSOR ONE (12:49)
[2019-01-25] MEDS: LOPRESSOR PO SCH (13:05)
[2019-01-25] MEDS ORDERED: APRESOLINE ONE (13:47)
[2019-01-25] MEDS: APRESOLINE IV PRN (13:48)
--- NOTE | 2019-01-25 15:55 | Progress Note ---
Assessment and Plan Severe Renal Failure, could have CKD component from DM and HTN: Volume overloaded: -Baseline serum creatinine unknown -cont to have worsening kidney function with anuria, will consult vascular for vascath placement, dialysis nurse is aware -renal US negative for obstruction -Will monitor renal function closely Acute hypoxic hypercapnic respiratory failure: -Intubated on vent support -As per Pulmonary Hypertensive emergency: -On Cardizem drip -Monitor blood pressures Type 2 diabetes mellitus -Insulin as per primary team Subjective Date of service: 01/25/19 Principal diagnosis: YESENIA Interval history: intubated and sedated Objective - Vital Signs Vital signs: Vital Signs - 12hr 01/25/19 01/25/19 01/25/19 04:00 04:16 04:30 Pulse Rate 63 64 65 Respiratory 20 20 20 Rate Blood Pressure 148/63 148/63 129/63 Blood Pressure [Right] O2 Sat by Pulse 100 99 98 Oximetry 01/25/19 01/25/19 01/25/19 04:46 05:00 05:16 Pulse Rate 65 63 65 Respiratory 21 20 20 Rate Blood Pressure 129/63 149/65 149/65 Blood Pressure [Right] O2 Sat by Pulse 100 99 100 Oximetry 01/25/19 01/25/19 01/25/19 05:30 05:46 06:00 Pulse Rate 62 66 64 Respiratory 20 20 Rate Blood Pressure 153/70 153/70 152/66 Blood Pressure [Right] O2 Sat by Pulse 100 100 100 Oximetry 01/25/19 01/25/19 01/25/19 06:16 06:30 07:00 Pulse Rate 67 66 61 Respiratory 20 20 20 Rate Blood Pressure 170/72 158/68 132/60 Blood Pressure [Right] O2 Sat by Pulse 100 99 99 Oximetry 01/25/19 01/25/19 01/25/19 07:30 07:52 08:00 Pulse Rate 62 65 62 Respiratory 20 20 Rate Blood Pressure 143/56 143/56 152/61 Blood Pressure [Right] O2 Sat by Pulse 99 98 98 Oximetry 01/25/19 01/25/19 01/25/19 08:30 09:00 09:30 Pulse Rate 63 59 L 58 L Respiratory 20 20 20 Rate Blood Pressure 154/68 142/64 139/64 Blood Pressure [Right] O2 Sat by Pulse 97 98 96 Oximetry 01/25/19 01/25/19 01/25/19 10:00 10:16 10:20 Pulse Rate 62 59 L Respiratory 20 20 Rate Blood Pressure 135/63 Blood Pressure 135/63 [Right] O2 Sat by Pulse 97 93 98 Oximetry 01/25/19 01/25/19 01/25/19 10:30 11:00 11:30 Pulse Rate 62 61 59 L Respiratory 20 20 20 Rate Blood Pressure 131/68 127/64 126/66 Blood Pressure [Right] O2 Sat by Pulse 92 95 95 Oximetry 01/25/19 01/25/19 01/25/19 11:42 12:00 12:30 Pulse Rate 61 59 L 68 Respiratory 20 20 Rate Blood Pressure 126/66 144/63 144/63 Blood Pressure [Right] O2 Sat by Pulse 95 95 93 Oximetry 01/25/19 01/25/19 01/25/19 13:16 13:56 14:00 Pulse Rate 64 65 Respiratory 20 21 20 Rate Blood Pressure 153/70 Blood Pressure 169/60 [Right] O2 Sat by Pulse 91 91 Oximetry 01/25/19 15:19 Pulse Rate 74 Respiratory Rate Blood Pressure 168/62 Blood Pressure [Right] O2 Sat by Pulse 91 Oximetry - General Appearance General appearance: well-developed, obese, intubated EENT: ATNC, PERRL, mucous membranes moist Neck: no JVD, no carotid bruit Respiratory: Present: Decreased Breath Sounds Cardiology: regular, S1S2 Gastrointestinal: normoactive bowel sounds, no tenderness, no distended Integumentary: no rash, warm and dry Neurologic: other (intubated and sedated) Musculoskeletal: other (1-2+ pitting edema in BLE) Psychiatric: mood/affect appropriate, cooperative - Lab 01/25/19 04:12 01/25/19 04:12 Most recent lab results Calcium 7.7 mg/dL (8.4-10.2) L 01/25/19 04:12 Phosphorus 3.80 mg/dL (2.5-4.5) 01/24/19 12:00 Magnesium 2.00 mg/dL (1.7-2.3) 01/24/19 12:00 Urine Creatinine 62.7 mg/dL (0.1-20.0) H 01/24/19 12:53 Urine Sodium 97 mmol/L 01/24/19 12:53 Urine Total Protein 323 mg/dL (5-11.8) H 01/24/19 12:53 Medications & Allergies - Medications Allergies/Adverse Reactions: Allergies No Known Allergies Allergy (Verified 09/13/14 23:38) Home Medications: Home Medications Medication Instructions Recorded Confirmed Last Taken Type Aspirin [Aspirin BABY CHEW TAB] 81 mg PO DAILY 09/13/14 01/24/19 09/13/14 History Doxazosin Mesylate 8 mg PO DAILY 09/13/14 01/24/19 09/13/14 History Lisinopril [Zestril TAB] 20 mg PO DAILY 09/13/14 01/24/19 09/13/14 History Metoprolol [Lopressor TAB] 25 mg PO DAILY 09/13/14 01/24/19 09/13/14 History Multivit-Min/FA/Lycopen/Lutein 1 each PO DAILY 09/13/14 01/24/19 09/13/14 History [Century Adults 50+ Tablet] Olmesartan/Amlodipin/Hcthiazid 1 each PO DAILY 09/13/14 01/24/19 09/13/14 History [Tribenzor 20-5-12.5 mg] glyBURIDE [Diabeta] 5 mg PO DAILY 09/13/14 01/24/19 09/13/14 History Active Medications: Generic Name Dose Route Start Last Admin Trade Name Edilbertoq PRN Reason Stop Dose Admin Aspirin 81 mg 01/24/19 10:00 01/25/19 12:05 Baby Aspirin PO 81 mg DAILY ESCOBAR Administration Fentanyl 50 mcg 01/25/19 11:26 Sublimaze IV Q2H PRN Chest Pain Hydralazine HCl 20 mg 01/24/19 14:00 01/25/19 13:48 Apresoline IV 20 mg Q4HR PRN Administration Hypertension Hydrophilic Ointment 1 applic 01/24/19 05:00 Vaseline Lip Therapy TP Q2HR PRN Dry Lips Fentanyl Citrate 2,000 mcg in 100 mls @ 6.804 mls/hr 01/24/19 05:00 01/24/19 13:47 Fentanyl Drip Premix IV Infused TITR ESCOBAR Titration Protocol 1 MCG/KG/HR Midazolam HCl 100 mg/ Sodium 100 mls @ 2 mls/hr 01/24/19 05:00 01/25/19 05:24 Chloride IV 2 mg/hr TITR ESCOBAR 2 mls/hr Titration Protocol 2 MG/HR Nicardipine HCl 50 mg/ Sodium 250 mls @ 25 mls/hr 01/24/19 08:00 01/25/19 03:30 Chloride IV Infused TITR ESCBOAR Titration Protocol 5 MG/HR Metoprolol Tartrate 25 mg 01/24/19 10:00 01/25/19 13:05 Lopressor PO 25 mg DAILY ESCOBAR Administration Midazolam HCl 2 mg 01/24/19 05:00 01/24/19 06:11 Versed IV 2 mg Q10MIN PRN Administration Sedation Multi-Ingred Cream/Lotion/Oil/Oint 1 applic 01/24/19 05:00 Artificial Tears Ophth Oint OU Q4HR PRN Dry Eye(s) Sodium Chloride 5 ml 01/24/19 05:00 Nacl 0.9% 500 Ml IV DIRECT 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
[2019-01-25] MEDS ORDERED: NACL 0.9% 100 ML IV PRN (16:03)
--- NOTE | 2019-01-25 17:02 | Operative Report ---
Operative Report Operative Report: Exam: Ultrasound guided placement of vas cath Clinical indication: Renal failure and volume overload requiring dialysis access Date: 01/25/2019 Procedure: Following an examination of the risks, benefits and alternatives; written informed consent was obtained from the patient's daughter. Reseda was performed at bedside in the emergency department. Initial ultrasound evaluation the patient's left groin demonstrated a patent left common femoral vein. The patient's left groin was prepped and draped in the usual sterile fashion. 1% lidocaine was used for anesthesia. Under ultrasound guidance, the left common femoral vein was cannulated with a 7 cm 18-gauge needle. A 0.035 guidewire was advanced centrally easily. The needle was removed. Following serial dilation over the guidewire, a 30 cm dialysis catheter was advanced over the guidewire easily. The guidewire was removed. Nonpulsatile blood return from all 3 ports. The catheter was flushed with sterile saline and securely fastened to the skin surface using 2-0 nylon suture. A sterile dressing was applied. The patient tolerated the procedure well. There were no immediate post procedure palpitations. Impression: Ultrasound guided placement of vas cath via the left common femoral vein.
--- NOTE | 2019-01-25 17:30 | Progress Note ---
Assessment and Plan Assessment and plan: --Acute kidney injury; secondary to ATN; worsening renal function Creatinine 6.5 -8.1, unknown baseline, gentle hydration, nephrology planning to initiate hemodialysis Patient had dialysis catheter placed by IR --Acute hypoxic hypercapnic respiratory failure; requiring intubation Continue ventilatory support, nebulizers, IV steroids, IV antibiotics ED already consulted pulmonary critical --Hypertensive emergency; resume multiple antihypertensives IV hydralazine, cardine drip per protocol --Metabolic encephalopathy; multifactorial Closely monitor --Type 2 diabetes mellitus; Accu-Chek sliding scale coverage and ADA diet insulin as needed --DVT prophylaxis; heparin renal dose --Full CODE STATUS Critical care time 31minutes. Plan of care is reviewed with family members and his nurse History Interval history: Patient Seen and examined medical records reviewed Patient isn't aware tolerating ICU bed assignment Remains intubated on ventilatory support Worsening renal function Nephrology initiating hemodialysis Patient underwent hemodialysis catheter placement Vital signs reviewed Multiple family members at the bedside Hospitalist Physical - Constitutional Vitals: Temp Pulse Resp BP Pulse Ox 97.3 F L 74 20 168/62 91 01/24/19 20:00 01/25/19 15:19 01/25/19 14:00 01/25/19 15:19 01/25/19 15:19 General appearance: Present: no acute distress, well-nourished, obese (morbidly obese) - EENT Eyes: Present: PERRL, EOM intact - Neck Neck: Present: supple, normal ROM - Respiratory Respiratory effort: normal Respiratory: bilateral: diminished, rhonchi, negative: rales, wheezing - Cardiovascular Rhythm: regular Heart Sounds: Present: S1 & S2 - Extremities Extremities: no ischemia, No edema - Abdominal General gastrointestinal: soft, non-tender, non-distended, normal bowel sounds - Integumentary Integumentary: Present: clear, warm - Psychiatric Psychiatric: other (intubated and sedated) - Neurologic Neurologic: other (intubated and sedated) Results - Labs CBC & Chem 7: 01/25/19 04:12 01/25/19 04:12 Labs: Laboratory Last Values WBC 7.7 K/mm3 (4.5-11.0) 01/25/19 04:12 RBC 2.88 M/mm3 (3.65-5.03) L 01/25/19 04:12 Hgb 8.8 gm/dl (11.8-15.2) L 01/25/19 04:12 Hct 25.9 % (35.5-45.6) L 01/25/19 04:12 MCV 90 fl (84-94) 01/25/19 04:12 MCH 31 pg (28-32) 01/25/19 04:12 MCHC 34 % (32-34) 01/25/19 04:12 RDW 14.1 % (13.2-15.2) 01/25/19 04:12 Plt Count 154 K/mm3 (140-440) 01/25/19 04:12 Lymph % (Auto) 8.1 % (13.4-35.0) L 01/25/19 04:12 Foster % (Auto) 14.7 % (0.0-7.3) H 01/25/19 04:12 Eos % (Auto) 0.7 % (0.0-4.3) 01/25/19 04:12 Baso % (Auto) 0.5 % (0.0-1.8) 01/25/19 04:12 Lymph # 0.6 K/mm3 (1.2-5.4) L 01/25/19 04:12 Foster # 1.1 K/mm3 (0.0-0.8) H 01/25/19 04:12 Eos # 0.1 K/mm3 (0.0-0.4) 01/25/19 04:12 Baso # 0.0 K/mm3 (0.0-0.1) 01/25/19 04:12 Seg Neutrophils % 76.0 % (40.0-70.0) H 01/25/19 04:12 Seg Neutrophils # 5.8 K/mm3 (1.8-7.7) 01/25/19 04:12 PT 14.1 Sec. (12.2-14.9) 01/24/19 05:20 INR 1.03 (0.87-1.13) 01/24/19 05:20 POC ABG pH 7.384 (7.35-7.45) 01/25/19 06:20 POC ABG pCO2 32.9 (35-45) L 01/25/19 06:20 POC ABG pO2 114 (80-105) H 01/25/19 06:20 POC ABG HCO3 19.7 (22-26 mml/L) 01/25/19 06:20 POC ABG Total CO2 21 (23-27mmol/L) 01/25/19 06:20 POC ABG O2 Sat 98 01/25/19 06:20 POC ABG Base Excess -5 ((-2) - (+3)mmol/L) 01/25/19 06:20 FiO2 60 % 01/25/19 06:20 Sodium 141 mmol/L (137-145) 01/25/19 04:12 Potassium 5.2 mmol/L (3.6-5.0) H 01/25/19 04:12 Chloride 105.6 mmol/L (98-107) 01/25/19 04:12 Carbon Dioxide 19 mmol/L (22-30) L 01/25/19 04:12 Anion Gap 22 mmol/L 01/25/19 04:12 BUN 76 mg/dL (9-20) H 01/25/19 04:12 Creatinine 8.1 mg/dL (0.8-1.5) H 01/25/19 04:12 Estimated GFR 8 ml/min 01/25/19 04:12 BUN/Creatinine Ratio 9 % 01/25/19 04:12 Glucose 89 mg/dL (75-100) 01/25/19 04:12 Osmolality 319 Mosm/kg 01/24/19 12:00 Lactic Acid 1.10 mmol/L (0.7-2.0) 01/24/19 07:52 Calcium 7.7 mg/dL (8.4-10.2) L 01/25/19 04:12 Phosphorus 3.80 mg/dL (2.5-4.5) 01/24/19 12:00 Magnesium 2.00 mg/dL (1.7-2.3) 01/24/19 12:00 Total Bilirubin 0.30 mg/dL (0.1-1.2) 01/25/19 04:12 Direct Bilirubin < 0.2 mg/dL (0-0.2) 01/24/19 12:00 AST 6 units/L (5-40) 01/25/19 04:12 ALT < 5 units/L (7-56) L 01/25/19 04:12 Alkaline Phosphatase 53 units/L (35-129) 01/25/19 04:12 Total Creatine Kinase 83 units/L (55-170) 01/24/19 05:20 Troponin T 0.011 ng/mL (0.00-0.029) 01/24/19 05:20 NT-Pro-B Natriuret Pep 29.99 pg/mL (0-900) 01/24/19 12:00 Total Protein 5.5 g/dL (6.3-8.2) L 01/25/19 04:12 Albumin 3.0 g/dL (3.9-5) L 01/25/19 04:12 Albumin/Globulin Ratio 1.2 % 01/25/19 04:12 Urine Color Straw (Yellow) 01/24/19 05:25 Urine Turbidity Slightly cloudy (Clear) 01/24/19 05:25 Urine pH 7.0 (5.0-7.0) 01/24/19 05:25 Ur Specific [place] 1.010 (1.003-1.030) 01/24/19 05:25 Urine Protein 100 mg/dl mg/dL (Negative) 01/24/19 05:25 Urine Glucose (UA) 150 mg/dL (Negative) 01/24/19 05:25 Urine Ketones Neg mg/dL (Negative) 01/24/19 05:25 Urine Blood Mod (Negative) 01/24/19 05:25 Urine Nitrite Neg (Negative) 01/24/19 05:25 Urine Bilirubin Neg (Negative) 01/24/19 05:25 Urine Urobilinogen < 2.0 mg/dL (<2.0) 01/24/19 05:25 Ur Leukocyte Esterase Neg (Negative) 01/24/19 05:25 Urine WBC (Auto) 6.0 /HPF (0.0-6.0) 01/24/19 05:25 Urine RBC (Auto) > 182.0 /HPF (0.0-6.0) 01/24/19 05:25 U Epithel Cells (Auto) < 1.0 /HPF (0-13.0) 01/24/19 05:25 Hyaline Casts 1 /LPF 01/24/19 05:25 Granular Casts 6 /LPF 01/24/19 05:25 Urine Mucus Few /HPF 01/24/19 05:25 Urine Creatinine 62.7 mg/dL (0.1-20.0) H 01/24/19 12:53 Urine Sodium 97 mmol/L 01/24/19 12:53 Urine Total Protein 323 mg/dL (5-11.8) H 01/24/19 12:53 Hepatitis A IgM Ab Non-reactive (NonReactive) 01/24/19 12:00 Hep Bs Antigen Non-reactive (Negative) 01/24/19 12:00 Hep B Core IgM Ab Non-reactive (NonReactive) 01/24/19 12:00 Hepatitis C Antibody Non-reactive (NonReactive) 01/24/19 12:00 Blood Type O POSITIVE 01/24/19 05:20 Antibody Screen Negative 01/24/19 05:20 Active Medications - Current Medications Current Medications: Generic Name Dose Route Start Last Admin Trade Name Freq PRN Reason Stop Dose Admin Aspirin 81 mg 01/24/19 10:00 01/25/19 12:05 Baby Aspirin PO 81 mg DAILY ESCOBAR Administration Fentanyl 50 mcg 01/25/19 11:26 Sublimaze IV Q2H PRN Chest Pain Hydralazine HCl 20 mg 01/24/19 14:00 01/25/19 13:48 Apresoline IV 20 mg Q4HR PRN Administration Hypertension Hydrophilic Ointment 1 applic 01/24/19 05:00 Vaseline Lip Therapy TP Q2HR PRN Dry Lips Fentanyl Citrate 2,000 mcg in 100 mls @ 6.804 mls/hr 01/24/19 05:00 01/24/19 13:47 Fentanyl Drip Premix IV Infused TITR ESCOBAR Titration Protocol 1 MCG/KG/HR Midazolam HCl 100 mg/ Sodium 100 mls @ 2 mls/hr 01/24/19 05:00 01/25/19 17:05 Chloride IV 2 mg/hr TITR ESCOBAR 2 mls/hr Titration Protocol 2 MG/HR Nicardipine HCl 50 mg/ Sodium 250 mls @ 25 mls/hr 01/24/19 08:00 01/25/19 07:05 Chloride IV 7.5 mg/hr TITR ESCOBAR 37.5 mls/hr Administration Protocol 5 MG/HR Sodium Chloride 100 mls @ 999 mls/hr 01/25/19 16:03 Nacl 0.9% IV JOSEPH PRN Hypotension Metoprolol Tartrate 25 mg 01/24/19 10:00 01/25/19 13:05 Lopressor PO 25 mg DAILY ESCOBAR Administration Midazolam HCl 2 mg 01/24/19 05:00 01/24/19 06:11 Versed IV 2 mg Q10MIN PRN Administration Sedation Multi-Ingred Cream/Lotion/Oil/Oint 1 applic 01/24/19 05:00 Artificial Tears Ophth Oint OU Q4HR PRN Dry Eye(s) Sodium Chloride 5 ml 01/24/19 05:00 Nacl 0.9% 500 Ml IV 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 Nutrition/Malnutrition Assess - Dietary Evaluation Nutrition/Malnutrition Findings: Nutrition Notes Start: 01/25/19 12:46 Freq: Status: Active Protocol: Document 01/25/19 12:46 CP (Rec: 01/25/19 13:01 CP [id number]) Co-Sign 01/25/19 12:46 LP Nutrition Notes Need for Assessment generated from: MD Order Initial or Follow up Assessment Current Diagnosis Acute Kidney Injury,Diabetes, Hypertension,Respiratory Failure Other Pertinent Diagnosis UTI, hypothermic, metabolic encephalopathy, DVT Current Diet NPO Labs/Tests K 5.2 BUN 76 Cr 8.1 Pertinent Medications Reviewed Height 6 ft 1 in Weight 128 kg [place] Body Weight (kg) 83.63 BMI 37.2 Weight Status Morbidly Obese Subjective/Other Information MD screen to evaluate nutritional intake. Awaiting TF consult. Percent of energy/protein needs met: 0%/0% Burn Absent Trauma Absent #1 Nutrition Diagnosis Inadequate oral intake Etiology Mechanical Vent As Evidenced by Signs and Symptoms NPO status Is patient on ventilator? Yes Is Patient Ambulatory and/or Out of Bed No REE-([facility]-confined to bed) 2506.032 Kcal/Kg value to use for calculation 14 Approximate Energy Requirements Using 1792 kcal/Kg Calculation Used for Recommendations Kcal/kg Additional Notes Pro: 2g/kg IBW: 167g Fluid: 1mL/kcal Nutrition Intervention Change Diet Order: TF or per MD request Nutrition Support: Vital AF @ 75 mL/hr Water flush 100 mL q4h. Kcal 2,160 Protein (gm) 135 Fluid (mL) 1,460 Goal #1 TF consult Goal #2 TF to meet at least 80% of energy and protein needs Anticipated Discharge Needs: Unable to determine at this time Follow-Up By: 01/28/19 Additional Comments F/U: TF consult
[2019-01-25] MEDS ORDERED: VASELINE LIP THERAPY TP ONE (18:58)
[2019-01-25] MEDS ORDERED: TYLENOL PR PRN (19:00)
[2019-01-25] MEDS ORDERED: TYLENOL PR ONE (19:04)
[2019-01-25] MEDS ORDERED: SUBLIMAZE ONE (20:45)
--- NOTE | 2019-01-26 03:40 | XRay Report ---
PROCEDURE: XR CHEST 1V AP TECHNIQUE: A portable semiupright view the chest was obtained. HISTORY: follow up respiratory failure COMPARISONS: 01/25/2019 FINDINGS: The heart is moderately enlarged. There is stable pulmonary congestion with airspace disease in the l ken[place] bases. There are bilateral effusions. The ET tube is in good position above the bruno. The NG tu be is in the upper stomach. IMPRESSION: Stable pulmonary edema pattern with bilateral effusions.. This document is electronically signed by Reji Amaral MD., January 26 2019 03:37:58 AM ET
--- NOTE | 2019-01-26 03:41 | XRay Report ---
PROCEDURE: XR ABDOMEN 1V AP TECHNIQUE: An AP view of the abdomen was obtained. HISTORY: Dobbhoff placement COMPARISONS: None FINDINGS: The tip of the Dobbhoff tube is in the upper stomach just below the GE junction. Needs. Advanced cons iderably. There is also an NG tube with the tip also in the proximal stomach. It also needs to be adv anced. The bowel gas pattern is unremarkable. IMPRESSION: Both the NG tube and Dobbhoff catheter are in the upper stomach and both need to be advanced consider ably.. This document is electronically signed by Reji Amaral MD., January 26 2019 03:39:17 AM ET
[2019-01-26 05:33] LABS: Basophils % (Auto) 0.3 % (0.0-1.8); Eosinophils # (Auto) 0.1 K/mm3 (0.0-0.4); Eosinophils % (Auto) 0.6 % (0.0-4.3); Hematocrit 27.5 % (35.5-45.6); Hemoglobin 9.5 gm/dl (11.8-15.2); Lymphocytes # (Auto) 0.8 K/mm3 (1.2-5.4); Lymphocytes % (Auto) 7.7 % (13.4-35.0); Mean Corpuscular HGB Conc 35 % (32-34); Mean Corpuscular Volume 89 fl (84-94); Monocytes # (Auto) 1.3 K/mm3 (0.0-0.8); Monocytes % (Auto) 12.3 % (0.0-7.3); Platelet Count 138 K/mm3 (140-440); Red Blood Count 3.08 M/mm3 (3.65-5.03); Red Cell Distribution Width 14.1 % (13.2-15.2)
[2019-01-26 05:52] LABS: Calcium 8.4 mg/dL (8.4-10.2)
[2019-01-26] MEDS: APRESOLINE IV PRN (08:12)
--- NOTE | 2019-01-26 08:12 | Progress Note ---
Assessment and Plan Severe Renal Failure, could have CKD component from DM and HTN: Volume overloaded: -S/p HD yesterday for gentle UF and clearance -HD again today for UF and clearance via left femoral Vas Catheter -Assess need for HD on daily basis -Monitor for signs of renal recovery -Renal US negative for obstruction -Hernandez Catheter: Yes -Renal plan d/w Dr Alvarez Acute hypoxic hypercapnic respiratory failure: -Intubated on ventilator -As per Pulmonary Hypertensive emergency: -On Cardene drip -Monitor blood pressures closely Anemia possibly due to CKD: - Obtain iron studies - May need Epogen Type 2 diabetes mellitus non-insulin dependent: -Insulin as per primary team Subjective Date of service: 01/26/19 Principal diagnosis: YESENIA Interval history: Pt seen in bed, intubated on ventilator, no family at bedside Objective - Vital Signs Vital signs: Vital Signs - 12hr 01/25/19 01/25/19 01/25/19 20:16 20:30 20:45 Temperature 100.1 F H Pulse Rate 78 80 75 Respiratory 19 20 20 Rate Blood Pressure 160/64 160/73 145/65 O2 Sat by Pulse 96 96 97 Oximetry O2 Sat by Pulse Oximetry [ Anterior Bilateral Throughout] 01/25/19 01/25/19 01/25/19 21:00 21:20 21:30 Temperature 100.9 F H 992 F H Pulse Rate 75 71 71 Respiratory 20 20 Rate Blood Pressure 132/66 140/71 160/71 O2 Sat by Pulse 98 Oximetry O2 Sat by Pulse 99 Oximetry [ Anterior Bilateral Throughout] 01/25/19 01/25/19 01/25/19 21:45 22:00 22:08 Temperature Pulse Rate 68 71 Respiratory 20 Rate Blood Pressure 160/69 O2 Sat by Pulse 96 Oximetry O2 Sat by Pulse Oximetry [ Anterior Bilateral Throughout] 01/25/19 01/25/19 01/25/19 22:50 23:00 23:06 Temperature 99.2 F Pulse Rate 77 79 Respiratory 20 Rate Blood Pressure 142/66 O2 Sat by Pulse 96 Oximetry O2 Sat by Pulse Oximetry [ Anterior Bilateral Throughout] 01/25/19 01/25/19 01/25/19 23:15 23:21 23:31 Temperature Pulse Rate 77 80 80 Respiratory 20 Rate Blood Pressure 148/66 148/66 149/70 O2 Sat by Pulse 97 98 Oximetry O2 Sat by Pulse Oximetry [ Anterior Bilateral Throughout] 01/25/19 01/25/19 01/25/19 23:37 23:41 23:45 Temperature Pulse Rate 78 79 79 Respiratory 20 20 20 Rate Blood Pressure 149/70 151/68 O2 Sat by Pulse 100 99 99 Oximetry O2 Sat by Pulse Oximetry [ Anterior Bilateral Throughout] 01/26/19 01/26/19 01/26/19 00:00 00:15 00:30 Temperature 99.2 F Pulse Rate 78 73 71 Respiratory 20 15 20 Rate Blood Pressure 143/71 161/67 166/72 O2 Sat by Pulse 99 100 100 Oximetry O2 Sat by Pulse Oximetry [ Anterior Bilateral Throughout] 01/26/19 01/26/19 01/26/19 00:45 01:00 01:15 Temperature Pulse Rate 70 66 67 Respiratory 20 20 20 Rate Blood Pressure 153/64 153/65 157/64 O2 Sat by Pulse 100 100 100 Oximetry O2 Sat by Pulse Oximetry [ Anterior Bilateral Throughout] 01/26/19 01/26/19 01/26/19 01:30 01:45 02:00 Temperature Pulse Rate 72 86 69 Respiratory 20 18 20 Rate Blood Pressure 172/70 160/81 150/67 O2 Sat by Pulse 100 99 100 Oximetry O2 Sat by Pulse Oximetry [ Anterior Bilateral Throughout] 01/26/19 01/26/19 01/26/19 02:15 02:30 02:45 Temperature Pulse Rate 70 76 64 Respiratory 20 18 20 Rate Blood Pressure 151/67 151/67 154/66 O2 Sat by Pulse 100 99 100 Oximetry O2 Sat by Pulse Oximetry [ Anterior Bilateral Throughout] 01/26/19 01/26/19 01/26/19 02:47 03:00 03:15 Temperature 99.5 F Pulse Rate 69 73 Respiratory 20 20 Rate Blood Pressure 154/66 168/71 O2 Sat by Pulse 100 100 Oximetry O2 Sat by Pulse Oximetry [ Anterior Bilateral Throughout] 01/26/19 01/26/19 01/26/19 03:30 03:45 04:00 Temperature Pulse Rate 73 71 66 Respiratory 21 20 20 Rate Blood Pressure 152/67 162/70 162/70 O2 Sat by Pulse 99 100 100 Oximetry O2 Sat by Pulse Oximetry [ Anterior Bilateral Throughout] 01/26/19 01/26/19 01/26/19 04:15 04:30 04:45 Temperature Pulse Rate 65 86 75 Respiratory 20 17 21 Rate Blood Pressure 150/69 160/65 172/72 O2 Sat by Pulse 100 98 99 Oximetry O2 Sat by Pulse Oximetry [ Anterior Bilateral Throughout] 01/26/19 01/26/19 01/26/19 05:00 05:04 05:15 Temperature Pulse Rate 104 H 88 89 Respiratory 21 20 Rate Blood Pressure 150/69 172/72 184/87 O2 Sat by Pulse 99 98 94 Oximetry O2 Sat by Pulse Oximetry [ Anterior Bilateral Throughout] 01/26/19 01/26/19 01/26/19 05:30 05:45 06:00 Temperature Pulse Rate 85 74 74 Respiratory 21 20 20 Rate Blood Pressure 184/87 168/76 168/76 O2 Sat by Pulse 96 98 99 Oximetry O2 Sat by Pulse Oximetry [ Anterior Bilateral Throughout] 01/26/19 01/26/19 01/26/19 06:15 06:30 06:45 Temperature Pulse Rate 78 79 73 Respiratory 21 20 20 Rate Blood Pressure 172/74 175/79 168/72 O2 Sat by Pulse 99 98 99 Oximetry O2 Sat by Pulse Oximetry [ Anterior Bilateral Throughout] - General Appearance General appearance: intubated EENT: ATNC Neck: no JVD Respiratory: Present: Decreased Breath Sounds (intubated on ventilator) Cardiology: tachycardia, S1S2, other (ACCESS: Left femoral Vas Catheter intact) Gastrointestinal: normoactive bowel sounds (Dobhoff tube intaact), other (: Hernandez to gravity draining yellow urine) Integumentary: warm and dry Neurologic: other (intubated on ventilator) Musculoskeletal: other (1+ edema to BLE) Psychiatric: other (unable to assess) - Lab 01/26/19 04:19 01/26/19 04:19 Most recent lab results Calcium 8.4 mg/dL (8.4-10.2) 01/26/19 04:19 Phosphorus 3.80 mg/dL (2.5-4.5) 01/24/19 12:00 Magnesium 2.00 mg/dL (1.7-2.3) 01/24/19 12:00 Urine Creatinine 62.7 mg/dL (0.1-20.0) H 01/24/19 12:53 Urine Sodium 97 mmol/L 01/24/19 12:53 Urine Total Protein 323 mg/dL (5-11.8) H 01/24/19 12:53 Medications & Allergies - Medications Allergies/Adverse Reactions: Allergies No Known Allergies Allergy (Verified 09/13/14 23:38) Home Medications: Home Medications Medication Instructions Recorded Confirmed Last Taken Type Aspirin [Aspirin BABY CHEW TAB] 81 mg PO DAILY 09/13/14 01/24/19 09/13/14 History Doxazosin Mesylate 8 mg PO DAILY 09/13/14 01/24/19 09/13/14 History Lisinopril [Zestril TAB] 20 mg PO DAILY 09/13/14 01/24/19 09/13/14 History Metoprolol [Lopressor TAB] 25 mg PO DAILY 09/13/14 01/24/19 09/13/14 History Multivit-Min/FA/Lycopen/Lutein 1 each PO DAILY 09/13/14 01/24/19 09/13/14 History [Century Adults 50+ Tablet] Olmesartan/Amlodipin/Hcthiazid 1 each PO DAILY 09/13/14 01/24/19 09/13/14 History [Tribenzor 20-5-12.5 mg] glyBURIDE [Diabeta] 5 mg PO DAILY 09/13/14 01/24/19 09/13/14 History Active Medications: Generic Name Dose Route Start Last Admin Trade Name Freq PRN Reason Stop Dose Admin Acetaminophen 650 mg 01/25/19 19:00 01/25/19 19:01 Tylenol [place] 650 mg Q4H PRN Administration Pain, Mild (1-3) Aspirin 81 mg 01/24/19 10:00 01/25/19 12:05 Baby Aspirin PO 81 mg DAILY ESCOBAR Administration Fentanyl 50 mcg 01/25/19 11:26 01/25/19 20:52 Sublimaze IV 50 mcg Q2H PRN Administration Chest Pain Hydralazine HCl 20 mg 01/24/19 14:00 01/25/19 13:48 Apresoline IV 20 mg Q4HR PRN Administration Hypertension Hydrophilic Ointment 1 applic 01/24/19 05:00 01/25/19 19:00 Vaseline Lip Therapy TP 1 applic Q2HR PRN Administration Dry Lips Fentanyl Citrate 2,000 mcg in 100 mls @ 6.804 mls/hr 01/24/19 05:00 01/24/19 13:47 Fentanyl Drip Premix IV Infused TITR ESCOBAR Titration Protocol 1 MCG/KG/HR Midazolam HCl 100 mg/ Sodium 100 mls @ 2 mls/hr 01/24/19 05:00 01/25/19 17:05 Chloride IV 2 mg/hr TITR ESCOBAR 2 mls/hr Titration Protocol 2 MG/HR Nicardipine HCl 50 mg/ Sodium 250 mls @ 25 mls/hr 01/24/19 08:00 01/25/19 23:46 Chloride IV 2.5 mg/hr TITR ESCOBAR 13 mls/hr Titration Protocol 5 MG/HR Sodium Chloride 100 mls @ 999 mls/hr 01/25/19 16:03 Nacl 0.9% IV JOSEPH PRN Hypotension Azithromycin 500 mg/ Sodium 250 mls @ 250 mls/hr 01/26/19 10:00 Chloride IV Q24HR ESCOBAR Ceftriaxone Sodium 2 gm in 100 mls @ 200 mls/hr 01/26/19 10:00 Rocephin/Ns 2 Gm/100 Ml IV Q24HR ESCOBAR Protocol Metoprolol Tartrate 25 mg 01/24/19 10:00 01/25/19 13:05 Lopressor PO 25 mg DAILY ESCOBAR Administration Midazolam HCl 2 mg 01/24/19 05:00 01/24/19 06:11 Versed IV 2 mg Q10MIN PRN Administration Sedation Multi-Ingred Cream/Lotion/Oil/Oint 1 applic 01/24/19 05:00 Artificial Tears Ophth Oint OU Q4HR PRN Dry Eye(s) Sodium Chloride 5 ml 01/24/19 05:00 Nacl 0.9% 500 Ml IV 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
[2019-01-26] MEDS: CARDENE 50 MG in NACL 0.9% 250ML 230 ML IV SCH (09:06)
[2019-01-26] MEDS ORDERED: ZITHROMAX 500 MG in NACL 0.9% 250ML 250 ML IV SCH (10:00)
[2019-01-26] MEDS ORDERED: ROCEPHIN/NS 2 GM/100 ML 2 GM/100 ML BAG IV SCH (10:00)
[2019-01-26] MEDS: LOPRESSOR PO SCH (10:21)
[2019-01-26] MEDS: BABY ASPIRIN PO SCH (10:21)
[2019-01-26] MEDS ORDERED: HEPARIN 10,000 UNITS/10 ML IV ONE (12:03)
[2019-01-26] MEDS ORDERED: NITRO DUR TD ONE (12:05)
[2019-01-26] MEDS ORDERED: ASPIRIN PR ONE (12:06)
[2019-01-26] MEDS ORDERED: NITRO-BID 2% TP ONE (12:07)
--- NOTE | 2019-01-26 12:13 | Progress Note ---
Assessment and Plan Assessment and plan: --Acute Myocardial infarction: Cardiology consulted, Dr. Harvey recommended Heparin bolus and drip, Tridil drip, 600 mg oral Plavix one dose Rectal aspirin, nitroglycerin patch Echocardiogram, serial cardiac enzymes, serial EKGs Possible left heart catheterization --Acute hypoxic hypercapnic respiratory failure; requiring intubation Continue ventilatory support, nebulizers, IV steroids, IV antibiotics ED already consulted pulmonary critical --Acute kidney injury; secondary to ATN; worsening renal function Nephrology initiated hemodialysis, HD per schedule --Hypertensive emergency; present on admission On cardine drip , oral antihypertensives via [place] --Metabolic encephalopathy; multifactorial Closely monitor --Type 2 diabetes mellitus; Accu-Chek sliding scale coverage and ADA diet, insulin as needed --DVT prophylaxis; heparin drip --Full CODE STATUS Critical care time 31minutes. Plan of care is reviewed with the patient's nurse Discussed with Dr. Bar and Dr Harvey I called and talked to patient's Dr. Jani Varner at [phone] Informed patient's condition and treatment plan possible left heart catheterization Verbalized understanding and she is on her way to ICU Critical care time 35 minutes History Interval history: Patient seen and examined medical records reviewed Urine intubated on ventilatory support Slightly restless EKG done this morning show acute ST-T changes Cardiology consultation, reviewed the records and evaluated the patient Planning left heart catheterization Vital signs noted Hospitalist Physical - Constitutional Vitals: Temp Pulse Resp BP Pulse Ox 99.7 F H 97 H 17 167/67 96 01/26/19 08:00 01/26/19 11:30 01/26/19 11:30 01/26/19 11:30 01/26/19 11:30 General appearance: Present: mild distress, well-nourished, obese (morbidly obese) - EENT Eyes: Present: PERRL, EOM intact - Neck Neck: Present: supple, normal ROM - Respiratory Respiratory effort: normal Respiratory: bilateral: diminished, rhonchi, negative: rales, wheezing - Cardiovascular Rhythm: regular Heart Sounds: Present: S1 & S2 - Extremities Extremities: no ischemia Extremity abnormal: edema - Abdominal General gastrointestinal: soft, non-tender, non-distended, normal bowel sounds - Integumentary Integumentary: Present: clear, warm - Psychiatric Psychiatric: other (intubated on vent) - Neurologic Neurologic: other (intubated on vent) Results - Labs CBC & Chem 7: 01/26/19 04:19 01/26/19 04:19 Labs: Laboratory Last Values WBC 10.4 K/mm3 (4.5-11.0) 01/26/19 04:19 RBC 3.08 M/mm3 (3.65-5.03) L 01/26/19 04:19 Hgb 9.5 gm/dl (11.8-15.2) L 01/26/19 04:19 Hct 27.5 % (35.5-45.6) L 01/26/19 04:19 MCV 89 fl (84-94) 01/26/19 04:19 MCH 31 pg (28-32) 01/26/19 04:19 MCHC 35 % (32-34) H 01/26/19 04:19 RDW 14.1 % (13.2-15.2) 01/26/19 04:19 Plt Count 138 K/mm3 (140-440) L 01/26/19 04:19 Lymph % (Auto) 7.7 % (13.4-35.0) L 01/26/19 04:19 [place] % (Auto) 12.3 % (0.0-7.3) H 01/26/19 04:19 Eos % (Auto) 0.6 % (0.0-4.3) 01/26/19 04:19 Baso % (Auto) 0.3 % (0.0-1.8) 01/26/19 04:19 Lymph # 0.8 K/mm3 (1.2-5.4) L 01/26/19 04:19 [place] # 1.3 K/mm3 (0.0-0.8) H 01/26/19 04:19 Eos # 0.1 K/mm3 (0.0-0.4) 01/26/19 04:19 Baso # 0.0 K/mm3 (0.0-0.1) 01/26/19 04:19 Seg Neutrophils % 79.1 % (40.0-70.0) H 01/26/19 04:19 Seg Neutrophils # 8.2 K/mm3 (1.8-7.7) H 01/26/19 04:19 PT 14.1 Sec. (12.2-14.9) 01/24/19 05:20 INR 1.03 (0.87-1.13) 01/24/19 05:20 POC ABG pH 7.432 (7.35-7.45) 01/26/19 05:04 POC ABG pCO2 35.6 (35-45) 01/26/19 05:04 POC ABG pO2 83 (80-105) 01/26/19 05:04 POC ABG HCO3 23.7 (22-26 mml/L) 01/26/19 05:04 POC ABG Total CO2 25 (23-27mmol/L) 01/26/19 05:04 POC ABG O2 Sat 97 01/26/19 05:04 POC ABG Base Excess -1 ((-2) - (+3)mmol/L) 01/26/19 05:04 FiO2 40 % 01/26/19 05:04 Sodium 140 mmol/L (137-145) 01/26/19 04:19 Potassium 4.6 mmol/L (3.6-5.0) 01/26/19 04:19 Chloride 99.1 mmol/L (98-107) 01/26/19 04:19 Carbon Dioxide 22 mmol/L (22-30) 01/26/19 04:19 Anion Gap 24 mmol/L 01/26/19 04:19 BUN 50 mg/dL (9-20) H 01/26/19 04:19 Creatinine 6.3 mg/dL (0.8-1.5) H 01/26/19 04:19 Estimated GFR 11 ml/min 01/26/19 04:19 BUN/Creatinine Ratio 8 % 01/26/19 04:19 Glucose 82 mg/dL (75-100) 01/26/19 04:19 Osmolality 319 Mosm/kg 01/24/19 12:00 Lactic Acid 1.10 mmol/L (0.7-2.0) 01/24/19 07:52 Calcium 8.4 mg/dL (8.4-10.2) 01/26/19 04:19 Phosphorus 3.80 mg/dL (2.5-4.5) 01/24/19 12:00 Magnesium 2.00 mg/dL (1.7-2.3) 01/24/19 12:00 Total Bilirubin 0.30 mg/dL (0.1-1.2) 01/25/19 04:12 Direct Bilirubin < 0.2 mg/dL (0-0.2) 01/24/19 12:00 AST 6 units/L (5-40) 01/25/19 04:12 ALT < 5 units/L (7-56) L 01/25/19 04:12 Alkaline Phosphatase 53 units/L (35-129) 01/25/19 04:12 Total Creatine Kinase 83 units/L (55-170) 01/24/19 05:20 Troponin T 0.011 ng/mL (0.00-0.029) 01/24/19 05:20 NT-Pro-B Natriuret Pep 29.99 pg/mL (0-900) 01/24/19 12:00 Total Protein 5.5 g/dL (6.3-8.2) L 01/25/19 04:12 Albumin 3.0 g/dL (3.9-5) L 01/25/19 04:12 Albumin/Globulin Ratio 1.2 % 01/25/19 04:12 Urine Color Straw (Yellow) 01/24/19 05:25 Urine Turbidity Slightly cloudy (Clear) 01/24/19 05:25 Urine pH 7.0 (5.0-7.0) 01/24/19 05:25 Ur Specific [place] 1.010 (1.003-1.030) 01/24/19 05:25 Urine Protein 100 mg/dl mg/dL (Negative) 01/24/19 05:25 Urine Glucose (UA) 150 mg/dL (Negative) 01/24/19 05:25 Urine Ketones Neg mg/dL (Negative) 01/24/19 05:25 Urine Blood Mod (Negative) 01/24/19 05:25 Urine Nitrite Neg (Negative) 01/24/19 05:25 Urine Bilirubin Neg (Negative) 01/24/19 05:25 Urine Urobilinogen < 2.0 mg/dL (<2.0) 01/24/19 05:25 Ur Leukocyte Esterase Neg (Negative) 01/24/19 05:25 Urine WBC (Auto) 6.0 /HPF (0.0-6.0) 01/24/19 05:25 Urine RBC (Auto) > 182.0 /HPF (0.0-6.0) 01/24/19 05:25 U Epithel Cells (Auto) < 1.0 /HPF (0-13.0) 01/24/19 05:25 Hyaline Casts 1 /LPF 01/24/19 05:25 Granular Casts 6 /LPF 01/24/19 05:25 Urine Mucus Few /HPF 01/24/19 05:25 Urine Creatinine 62.7 mg/dL (0.1-20.0) H 01/24/19 12:53 Urine Sodium 97 mmol/L 01/24/19 12:53 Urine Total Protein 323 mg/dL (5-11.8) H 01/24/19 12:53 Hepatitis A IgM Ab Non-reactive (NonReactive) 01/24/19 12:00 Hep Bs Antigen Non-reactive (Negative) 01/24/19 12:00 Hep B Core IgM Ab Non-reactive (NonReactive) 01/24/19 12:00 Hepatitis C Antibody Non-reactive (NonReactive) 01/24/19 12:00 Blood Type O POSITIVE 01/24/19 05:20 Antibody Screen Negative 01/24/19 05:20 Active Medications - Current Medications Current Medications: Generic Name Dose Route Start Last Admin Trade Name Freq PRN Reason Stop Dose Admin Acetaminophen 650 mg 01/25/19 19:00 01/25/19 19:01 Tylenol [place] 650 mg Q4H PRN Administration Pain, Mild (1-3) Aspirin 81 mg 01/24/19 10:00 01/26/19 10:21 Baby Aspirin PO 81 mg DAILY ESCOBAR Administration Aspirin 300 mg 01/26/19 12:06 Aspirin [place] 01/26/19 12:07 ONCE ONE Clopidogrel Bisulfate 600 mg 01/26/19 12:06 Plavix PO 01/26/19 12:07 ONCE ONE Fentanyl 50 mcg 01/25/19 11:26 01/25/19 20:52 Sublimaze IV 50 mcg Q2H PRN Administration Chest Pain Heparin Sodium (Porcine) 5,000 unit 01/26/19 12:03 Heparin 10,000 Units/10 Ml IV 01/26/19 12:04 ONCE ONE Hydralazine HCl 20 mg 01/24/19 14:00 01/26/19 08:12 Apresoline IV 20 mg Q4HR PRN Administration Hypertension Hydrophilic Ointment 1 applic 01/24/19 05:00 01/25/19 19:00 Vaseline Lip Therapy TP 1 applic Q2HR PRN Administration Dry Lips Fentanyl Citrate 2,000 mcg in 100 mls @ 6.804 mls/hr 01/24/19 05:00 01/24/19 13:47 Fentanyl Drip Premix IV Infused TITR ESCOBAR Titration Protocol 1 MCG/KG/HR Midazolam HCl 100 mg/ Sodium 100 mls @ 2 mls/hr 01/24/19 05:00 01/25/19 17:05 Chloride IV 2 mg/hr TITR ESCOBAR 2 mls/hr Titration Protocol 2 MG/HR Nicardipine HCl 50 mg/ Sodium 250 mls @ 25 mls/hr 01/24/19 08:00 01/26/19 09:06 Chloride IV 5 mg/hr TITR ESCOBAR 25 mls/hr Administration Protocol 5 MG/HR Sodium Chloride 100 mls @ 999 mls/hr 01/25/19 16:03 Nacl 0.9% IV JOSEPH PRN Hypotension Azithromycin 500 mg/ Sodium 250 mls @ 250 mls/hr 01/26/19 10:00 01/26/19 10:26 Chloride IV 250 mls/hr Q24HR ESCOBAR Administration Ceftriaxone Sodium 2 gm in 100 mls @ 200 mls/hr 01/26/19 10:00 01/26/19 10:22 Rocephin/Ns 2 Gm/100 Ml IV 200 mls/hr Q24HR ESCOBAR Administration Protocol Heparin Sodium/Sodium Chloride 25,000 unit in 500 mls @ 38.4 mls/hr 01/26/19 13:00 Heparin/ 0.45% Nacl-25,000 Unit/500 Ml IV TITRATE ESCOBAR Protocol 15 UNITS/KG/HR Nitroglycerin/Dextrose 50 mg in 250 mls @ 3 mls/hr 01/26/19 13:00 Tridil Drip 50mg/250ml IV TITR ESCOBAR Protocol 10 MCG/MIN Metoprolol Tartrate 25 mg 01/24/19 10:00 01/26/19 10:21 Lopressor PO 25 mg DAILY ESCOBAR Administration Midazolam HCl 2 mg 01/24/19 05:00 01/24/19 06:11 Versed IV 2 mg Q10MIN PRN Administration Sedation Multi-Ingred Cream/Lotion/Oil/Oint 1 applic 01/24/19 05:00 Artificial Tears Ophth Oint OU Q4HR PRN Dry Eye(s) Nitroglycerin 0.4 mg 01/26/19 12:05 Nitro Dur TD 01/26/19 12:06 ONCE ONE Sodium Chloride 5 ml 01/24/19 05:00 Nacl 0.9% 500 Ml IV DIRECT 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 Nutrition/Malnutrition Assess - Dietary Evaluation Nutrition/Malnutrition Findings: Nutrition Notes Start: 01/25/19 12:46 Freq: Status: Active Protocol: Document 01/25/19 12:46 CP (Rec: 01/25/19 13:01 CP [id number]) Co-Sign 01/25/19 12:46 LP Nutrition Notes Need for Assessment generated from: MD Order Initial or Follow up Assessment Current Diagnosis Acute Kidney Injury,Diabetes, Hypertension,Respiratory Failure Other Pertinent Diagnosis UTI, hypothermic, metabolic encephalopathy, DVT Current Diet NPO Labs/Tests K 5.2 BUN 76 Cr 8.1 Pertinent Medications Reviewed Height 6 ft 1 in Weight 128 kg [place] Body Weight (kg) 83.63 BMI 37.2 Weight Status Morbidly Obese Subjective/Other Information MD screen to evaluate nutritional intake. Awaiting TF consult. Percent of energy/protein needs met: 0%/0% Burn Absent Trauma Absent #1 Nutrition Diagnosis Inadequate oral intake Etiology Mechanical Vent As Evidenced by Signs and Symptoms NPO status Is patient on ventilator? Yes Is Patient Ambulatory and/or Out of Bed No REE-([facility]-confined to bed) 2506.032 Kcal/Kg value to use for calculation 14 Approximate Energy Requirements Using 1792 kcal/Kg Calculation Used for Recommendations Kcal/kg Additional Notes Pro: 2g/kg IBW: 167g Fluid: 1mL/kcal Nutrition Intervention Change Diet Order: TF or per MD request Nutrition Support: Vital AF @ 75 mL/hr Water flush 100 mL q4h. Kcal 2,160 Protein (gm) 135 Fluid (mL) 1,460 Goal #1 TF consult Goal #2 TF to meet at least 80% of energy and protein needs Anticipated Discharge Needs: Unable to determine at this time Follow-Up By: 01/28/19 Additional Comments F/U: TF consult
--- NOTE | 2019-01-26 12:21 | Progress Note ---
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 1. slabbing machine operator for evaluation. 2. Continue full Vent support 3. Asa, Plavix, Statin, BB and nitro drip (will give paste until drip is available) 4. Hold HD for right now 5. BP control per renal and cards. CCT 31 minutes Subjective Date of service: 01/26/19 Principal diagnosis: YESENIA Interval history: Called by Nursing in ICU that patient's EKG had changed. Requested 12 lead and there appears to be diffuse ST depression via pic sent to me. Asked for Trops to be sent and Cardiology consult. On my arrival, saw Cards and asked them to review the EKG with me. Agree this acute infarct, likely inferior vs posterior. slabbing machine operator activated and patient will be going down. He remains ventilated but not on sedation. Follows commands. States that he is having chest pain now. Objective Vital Signs - 12hr 01/26/19 01/26/19 01/26/19 00:30 00:45 01:00 Temperature 99.2 F Pulse Rate 71 70 66 Respiratory 20 20 20 Rate Blood Pressure 166/72 153/64 153/65 O2 Sat by Pulse 100 100 100 Oximetry 01/26/19 01/26/19 01/26/19 01:15 01:30 01:45 Temperature Pulse Rate 67 72 86 Respiratory 20 20 18 Rate Blood Pressure 157/64 172/70 160/81 O2 Sat by Pulse 100 100 99 Oximetry 01/26/19 01/26/19 01/26/19 02:00 02:15 02:30 Temperature Pulse Rate 69 70 76 Respiratory 20 20 18 Rate Blood Pressure 150/67 151/67 151/67 O2 Sat by Pulse 100 100 99 Oximetry 01/26/19 01/26/19 01/26/19 02:45 02:47 03:00 Temperature 99.5 F Pulse Rate 64 69 Respiratory 20 20 Rate Blood Pressure 154/66 154/66 O2 Sat by Pulse 100 100 Oximetry 01/26/19 01/26/19 01/26/19 03:15 03:30 03:45 Temperature Pulse Rate 73 73 71 Respiratory 20 21 20 Rate Blood Pressure 168/71 152/67 162/70 O2 Sat by Pulse 100 99 100 Oximetry 01/26/19 01/26/19 01/26/19 04:00 04:15 04:30 Temperature Pulse Rate 66 65 86 Respiratory 20 20 17 Rate Blood Pressure 162/70 150/69 160/65 O2 Sat by Pulse 100 100 98 Oximetry 01/26/19 01/26/19 01/26/19 04:45 05:00 05:04 Temperature Pulse Rate 75 104 H 88 Respiratory 21 21 Rate Blood Pressure 172/72 150/69 172/72 O2 Sat by Pulse 99 99 98 Oximetry 01/26/19 01/26/19 01/26/19 05:15 05:30 05:45 Temperature Pulse Rate 89 85 74 Respiratory 20 21 20 Rate Blood Pressure 184/87 184/87 168/76 O2 Sat by Pulse 94 96 98 Oximetry 01/26/19 01/26/19 01/26/19 06:00 06:15 06:30 Temperature Pulse Rate 74 78 79 Respiratory 20 21 20 Rate Blood Pressure 168/76 172/74 175/79 O2 Sat by Pulse 99 99 98 Oximetry 01/26/19 01/26/19 01/26/19 06:45 07:00 07:15 Temperature Pulse Rate 73 80 70 Respiratory 20 20 20 Rate Blood Pressure 168/72 183/79 164/73 O2 Sat by Pulse 99 98 97 Oximetry 01/26/19 01/26/19 01/26/19 07:30 07:45 08:00 Temperature 99.7 F H Pulse Rate 73 75 80 Respiratory 20 19 20 Rate Blood Pressure 164/73 177/75 164/73 O2 Sat by Pulse 97 96 95 Oximetry 01/26/19 01/26/19 01/26/19 08:12 08:15 08:30 Temperature Pulse Rate 85 92 H 96 H Respiratory 20 19 Rate Blood Pressure 182/81 188/103 169/76 O2 Sat by Pulse 95 95 Oximetry 01/26/19 01/26/19 01/26/19 08:38 08:46 09:00 Temperature Pulse Rate 85 109 H 107 H Respiratory 20 20 Rate Blood Pressure 182/81 156/75 172/79 O2 Sat by Pulse 100 95 94 Oximetry 01/26/19 01/26/19 01/26/19 09:15 09:23 09:30 Temperature Pulse Rate 106 H 104 H 103 H Respiratory 20 22 Rate Blood Pressure 164/81 164/81 159/75 O2 Sat by Pulse 93 94 Oximetry 01/26/19 01/26/19 01/26/19 09:45 10:00 10:15 Temperature Pulse Rate 99 H 99 H 101 H Respiratory 20 21 20 Rate Blood Pressure 164/74 164/76 162/70 O2 Sat by Pulse 95 95 95 Oximetry 01/26/19 01/26/19 01/26/19 10:21 10:30 10:37 Temperature Pulse Rate 98 H 102 H 100 H Respiratory 19 Rate Blood Pressure 162/70 162/70 156/86 O2 Sat by Pulse 94 95 Oximetry 01/26/19 01/26/19 01/26/19 10:45 11:00 11:15 Temperature Pulse Rate 102 H 101 H 90 Respiratory 21 19 17 Rate Blood Pressure 165/73 152/69 155/63 O2 Sat by Pulse 95 95 97 Oximetry 01/26/19 11:30 Temperature Pulse Rate 97 H Respiratory 17 Rate Blood Pressure 167/67 O2 Sat by Pulse 96 Oximetry Constitutional: no acute distress, alert, appears uncomfortable Eyes: non-icteric ENT: other (orally intubated or sedated) Neck: supple Effort: mildly labored Ascultation: Bilateral: clear, diminished breath sounds Percussion: Bilateral: not dull Cardiovascular: regular rate and rhythm Gastrointestinal: normoactive bowel sounds, soft Extremities: no cyanosis, no edema Neurologic: normal mental status, non-focal exam Psychiatric: mood appropriate CBC and BMP: 01/26/19 04:19 01/26/19 04:19 ABG, PT/INR, D-dimer: ABG POC ABG pH 7.432 (7.35-7.45) 01/26/19 05:04 POC ABG pCO2 35.6 (35-45) 01/26/19 05:04 POC ABG pO2 83 (80-105) 01/26/19 05:04 POC ABG HCO3 23.7 (22-26 mml/L) 01/26/19 05:04 POC ABG Total CO2 25 (23-27mmol/L) 01/26/19 05:04 POC ABG O2 Sat 97 01/26/19 05:04 PT/INR, D-dimer PT 14.1 Sec. (12.2-14.9) 01/24/19 05:20 INR 1.03 (0.87-1.13) 01/24/19 05:20 Abnormal lab findings: Abnormal Labs 03/01/24/19 01/24/19 05:20 05:20 05:20 RBC 3.40 L Hgb 10.4 L Hct 30.0 L MCHC 35 H Plt Count Lymph % (Auto) 11.1 L [place] % (Auto) 8.7 H Lymph # 0.7 L [place] # Seg Neutrophils % 76.1 H Seg Neutrophils # POC ABG pH POC ABG pCO2 POC ABG pO2 Potassium Carbon Dioxide 20 L BUN 69 H Creatinine 6.5 H Glucose 213 H Calcium Magnesium 2.70 H ALT Total Protein Albumin Urine Creatinine Urine Total Protein 01/24/19 01/24/19 01/24/19 05:45 08:26 12:00 RBC Hgb Hct MCHC Plt Count Lymph % (Auto) [place] % (Auto) Lymph # [place] # Seg Neutrophils % Seg Neutrophils # POC ABG pH 7.285 L 7.349 L POC ABG pCO2 50.6 H POC ABG pO2 337 H Potassium Carbon Dioxide BUN Creatinine Glucose Calcium Magnesium ALT Total Protein 5.5 L D Albumin 3.6 L Urine Creatinine Urine Total Protein 01/24/19 01/25/19 01/25/19 12:53 04:12 04:12 RBC 2.88 L Hgb 8.8 L Hct 25.9 L MCHC Plt Count Lymph % (Auto) 8.1 L [place] % (Auto) 14.7 H Lymph # 0.6 L [place] # 1.1 H Seg Neutrophils % 76.0 H Seg Neutrophils # POC ABG pH POC ABG pCO2 POC ABG pO2 Potassium 5.2 H Carbon Dioxide 19 L BUN 76 H Creatinine 8.1 H Glucose Calcium 7.7 L Magnesium ALT < 5 L Total Protein 5.5 L Albumin 3.0 L Urine Creatinine 62.7 H Urine Total Protein 323 H 01/25/19 01/26/19 01/26/19 06:20 04:19 04:19 RBC 3.08 L Hgb 9.5 L Hct 27.5 L MCHC 35 H Plt Count 138 L Lymph % (Auto) 7.7 L [place] % (Auto) 12.3 H Lymph # 0.8 L [place] # 1.3 H Seg Neutrophils % 79.1 H Seg Neutrophils # 8.2 H POC ABG pH POC ABG pCO2 32.9 L POC ABG pO2 114 H Potassium Carbon Dioxide BUN 50 H Creatinine 6.3 H Glucose Calcium Magnesium ALT Total Protein Albumin Urine Creatinine Urine Total Protein Chest x-ray: report reviewed, image reviewed (small right sided effusion, otherwise clear)
[2019-01-26] MEDS ORDERED: HEPARIN ONE (12:24)
[2019-01-26] MEDS ORDERED: HEPARIN/NS 5000 UNIT/500ML(CATH LAB) 1,000 ML IR ONE (12:37)
[2019-01-26] MEDS ORDERED: XYLOCAINE 2% INFILTRATI ONE (12:38)
[2019-01-26] MEDS ORDERED: HEPARIN 10,000 UNITS/10 ML ONE (12:38)
[2019-01-26] MEDS ORDERED: NITROGLYCERIN SYRINGE 3 ML ONE (12:38)
--- NOTE | 2019-01-26 12:41 | Consultation ---
History of Present Illness Consult date: 01/26/19 Consult reason: congestive heart failure, other (acute myocardial infarction) History of present illness: The patient is a 73-year-old man who presented to the hospital with shortness of breath, respiratory failure, acute pulmonary edema and end-stage renal failure. In addition, he has been persistently hypertensive. He is currently on the vent, unable to give a history, on Cardene drip for hypertension, and was initiated into acute hemodialysis with the first dialysis treatment just yesterday. His listed medications include antihypertensives and diabetic medications. On presentation, his ECG was a normal sinus rhythm with no acute ST or T-wave abnormalities. This morning, the nurse reported a change in his ST segments on the environmental monitoring technician, which prompted an immediate ECG. The EKG shows the acute development of deep lateral ST depressions, consistent with acute lateral ischemia but more likely an acute posterior infarct. Cardiology consultation was obtained. We recommend immediate cardiac catheterization. Prior to transition to the medical lab director, the patient will be treated with aspirin, oral Plavix load, intravenous heparin and intravenous nitroglycerin. Past History Past Medical History: diabetes, hypertension Past Surgical History: No surgical history Social history: full code. denies: smoking, alcohol abuse, IV drug use Family history: no significant family history Medications and Allergies Allergies Allergy/AdvReac Type Severity Reaction Status Date / Time No Known Allergies Allergy Verified 09/13/14 23:38 Home Medications Medication Instructions Recorded Confirmed Last Taken Type Aspirin [Aspirin BABY CHEW TAB] 81 mg PO DAILY 09/13/14 01/24/19 09/13/14 History Doxazosin Mesylate 8 mg PO DAILY 09/13/14 01/24/19 09/13/14 History Lisinopril [Zestril TAB] 20 mg PO DAILY 09/13/14 01/24/19 09/13/14 History Metoprolol [Lopressor TAB] 25 mg PO DAILY 09/13/14 01/24/19 09/13/14 History Multivit-Min/FA/Lycopen/Lutein 1 each PO DAILY 09/13/14 01/24/19 09/13/14 History [[place] Adults 50+ Tablet] Olmesartan/Amlodipin/Hcthiazid 1 each PO DAILY 09/13/14 01/24/19 09/13/14 History [Tribenzor 20-5-12.5 mg] glyBURIDE [Diabeta] 5 mg PO DAILY 09/13/14 01/24/19 09/13/14 History Active Meds: Active Medications Acetaminophen (Tylenol) 650 mg [place] Q4H PRN PRN Reason: Pain, Mild (1-3) Last Admin: 01/25/19 19:01 Dose: 650 mg Documented by: Aspirin (Baby Aspirin) 81 mg PO DAILY ESCOBAR Last Admin: 01/26/19 10:21 Dose: 81 mg Documented by: Clopidogrel Bisulfate (Plavix) 600 mg PO ONCE ONE Stop: 01/26/19 13:01 Last Admin: 01/26/19 12:33 Dose: 600 mg Documented by: Fentanyl (Sublimaze) 50 mcg IV Q2H PRN PRN Reason: Chest Pain Last Admin: 01/25/19 20:52 Dose: 50 mcg Documented by: Hydralazine HCl (Apresoline) 20 mg IV Q4HR PRN PRN Reason: Hypertension Last Admin: 01/26/19 08:12 Dose: 20 mg Documented by: Hydrophilic Ointment (Vaseline Lip Therapy) 1 applic TP Q2HR PRN PRN Reason: Dry Lips Last Admin: 01/25/19 19:00 Dose: 1 applic Documented by: Fentanyl Citrate (Fentanyl Drip Premix) 2,000 mcg in 100 mls @ 6.804 mls/hr IV TITR ESCOBAR; Protocol Last Titration: 01/24/19 13:47 Dose: Infused Documented by: Midazolam HCl 100 mg/ Sodium (Chloride) 100 mls @ 2 mls/hr IV TITR ESCOBAR; Protocol Last Titration: 01/25/19 17:05 Dose: 2 mg/hr, 2 mls/hr Documented by: Nicardipine HCl 50 mg/ Sodium (Chloride) 250 mls @ 25 mls/hr IV TITR ESCOBAR; Protocol Last Admin: 01/26/19 09:06 Dose: 5 mg/hr, 25 mls/hr Documented by: Sodium Chloride (Nacl 0.9%) 100 mls @ 999 mls/hr IV JOSEPH PRN PRN Reason: Hypotension Azithromycin 500 mg/ Sodium (Chloride) 250 mls @ 250 mls/hr IV Q24HR ESCOBAR Last Admin: 01/26/19 10:26 Dose: 250 mls/hr Documented by: Ceftriaxone Sodium (Rocephin/Ns 2 Gm/100 Ml) 2 gm in 100 mls @ 200 mls/hr IV Q24HR ESCOBAR; Protocol Last Admin: 01/26/19 10:22 Dose: 200 mls/hr Documented by: Heparin Sodium/Sodium Chloride (Heparin/ 0.45% Nacl-25,000 Unit/500 Ml) 25,000 unit in 500 mls @ 20 mls/hr IV TITRATE ESCOBAR; Protocol Nitroglycerin/Dextrose (Tridil Drip 50mg/250ml) 50 mg in 250 mls @ 3 mls/hr IV TITR ESCOBAR; Protocol Metoprolol Tartrate (Lopressor) 25 mg PO DAILY ESCOBAR Last Admin: 01/26/19 10:21 Dose: 25 mg Documented by: Midazolam HCl (Versed) 2 mg IV Q10MIN PRN PRN Reason: Sedation Last Admin: 01/24/19 06:11 Dose: 2 mg Documented by: Multi-Ingred Cream/Lotion/Oil/Oint (Artificial Tears Ophth Oint) 1 applic OU Q4HR PRN PRN Reason: Dry Eye(s) Sodium Chloride (Nacl 0.9% 500 Ml) 5 ml IV DIRECT PRN PRN 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 Review of Systems ROS unobtainable: due to endotracheal tube Physical Examination Vital Signs Pulse Resp 105 H 36 H 01/24/19 04:44 01/24/19 04:44 General appearance: other (awake but lethargic, on the respirator) HEENT: Positive: PERRL Neck: Positive: neck supple Cardiac: Positive: Reg Rate and Rhythm Lungs: Positive: Decreased Breath Sounds Neuro: Positive: Grossly Intact Abdomen: Positive: Soft Male genitourinary: Positive: deferred Skin: Positive: Clear Extremities: Absent: edema Results 01/26/19 04:19 01/26/19 04:19 CBC 01/26/19 Range/Units 04:19 WBC 10.4 (4.5-11.0) K/mm3 RBC 3.08 L (3.65-5.03) M/mm3 Hgb 9.5 L (11.8-15.2) gm/dl Hct 27.5 L (35.5-45.6) % Plt Count 138 L (140-440) K/mm3 Lymph # 0.8 L (1.2-5.4) K/mm3 [place] # 1.3 H (0.0-0.8) K/mm3 Eos # 0.1 (0.0-0.4) K/mm3 Baso # 0.0 (0.0-0.1) K/mm3 Comprehensive Metabolic Panel 01/26/19 Range/Units 04:19 Sodium 140 (137-145) mmol/L Potassium 4.6 (3.6-5.0) mmol/L Chloride 99.1 (98-107) mmol/L Carbon Dioxide 22 (22-30) mmol/L BUN 50 H (9-20) mg/dL Creatinine 6.3 H (0.8-1.5) mg/dL Glucose 82 (75-100) mg/dL Calcium 8.4 (8.4-10.2) mg/dL EKG interpretations - Telemetry EKG Rhythm: Sinus Rhythm (with acute lateral ischemia/acute posterior infarct) Assessment and Plan - Patient Problems (1) Acute posterior myocardial infarction Current Visit: Yes Status: Acute Plan to address problem: Patient admitted with acute pulmonary edema, uncontrolled hypertension and end- stage renal failure. Initial EKG was benign, this morning patient developed deep ST segment depression in the lateral leads, likely consistent with acute posterior infarction. We will proceed with urgent cardiac catheterization. (2) Respiratory failure Current Visit: Yes Status: Acute Plan to address problem: Acute pulmonary edema in the setting of end-stage renal disease, management with initiated hemodialysis.
[2019-01-26] MEDS ORDERED: HEPARIN/ 0.45% NACL-25,000 UNIT/500 ML 25,000 UNIT/500 ML BAG IV SCH ×3 (13:00→19:30)
[2019-01-26] MEDS ORDERED: TRIDIL DRIP 50MG/250ML 50 MG/250 ML BOTTLE IV SCH ×2 (13:00→15:51)
[2019-01-26] MEDS ORDERED: PLAVIX PO ONE (13:00)
[2019-01-26 13:11] LABS: Chol/HDL Ratio 4.08 %
[2019-01-26] MEDS ORDERED: VERSED IV ONE (13:34)
[2019-01-26] MEDS ORDERED: SUBLIMAZE ONE ×2 (13:34→22:42)
[2019-01-26] MEDS ORDERED: NACL 0.9% 500 ML 500 ML ONE (13:38)
--- NOTE | 2019-01-26 14:25 | Cardiac Catherization Report ---
REASON FOR PROCEDURE: The patient is a 73-year-old man who presented to the hospital with acute pulmonary edema and respiratory failure, in addition to end-stage renal failure. He was admitted to the CCU on the vent, underwent initiation of hemodialysis. On the second hospital day, he was noted with dynamic ST abnormalities on his ECG. The ECG changes appeared consistent with an acute posterior infarction or acute lateral ischemia. Cardiac catheterization was recommended to be done on an urgent basis. PROCEDURE: The patient was prepped and draped in a sterile fashion, after arriving to the supervisor cytogenetic laboratory, awake on the vent. The right femoral artery was entered using Seldinger technique followed by placement of a 6-Malay sheath. Selective left and right coronary angiography was performed using a #4 right Sergio for the right coronary artery and XB 3.5 guide for the left coronary artery. The right Sergio was also used for left ventricle angiography. The angiograms were reviewed. HEMODYNAMICS: Left ventricular end diastolic pressure was 30-33, following coronary angiography. Ascending aortic pressure was 129/70. There was no significant pressure gradient on pullback across the aortic valve. CORONARY ANGIOGRAPHY: There was an irregular, calcified, 50% stenosis of the distal left main artery. The left anterior descending artery contained diffuse atherosclerosis of its proximal segment, there was a focal 40% stenosis of the mid segment and another 50-60% stenosis of the distal LAD. The first diagonal branch contained mild irregularities. The mid diagonal branch was also a large vessel that contained an ostial 80% stenosis. A large ramus intermedius artery contained a 50% stenosis in its proximal to mid segment. The circumflex artery was relatively small caliber system that contained a 70% proximal stenosis followed by another 75% stenosis of the mid segment of the obtuse marginal branch. The right coronary artery was a large dominant vessel. There was a 75-80% stenosis of the proximal vessel followed by another 80% stenosis of the mid vessel before the acute margin. There was moderate left ventricular systolic dysfunction with ejection fraction 35-40%. CONCLUSION: 1. Severe 3-vessel coronary artery disease including irregular, ulcerated stenosis of the distal left main coronary artery. 2. Moderate severity left ventricular systolic dysfunction with ejection fraction 35-40%. 3. Sedation time start 13:32, end 13:52. RECOMMENDATION: Coronary artery bypass surgery will be the optimal revascularization strategy. There are no acutely occluded vessels that will correspond to the ST segment changes on the EKG, therefore no acute coronary intervention is warranted at this time. [facility]# [id number] RAZIA/STEPHANIE
[2019-01-26] MEDS ORDERED: COZAAR FEEDTUBE SCH (15:49)
[2019-01-26 16:01] LABS: Hematocrit 27.6 % (35.5-45.6); Hemoglobin 9.6 gm/dl (11.8-15.2)
[2019-01-26 16:13] LABS: INR 1.34 (0.87-1.13)
[2019-01-26 16:28] LABS: Partial Thromboplastin Time > 20.0 Sec. (24.2-36.6)
--- NOTE | 2019-01-26 17:08 | Discharge Summary ---
Providers - Providers Date of Admission: 01/24/19 07:42 Date of discharge: 01/26/19 Attending physician: MAYELIN SWEENEY 01/24/19 04:59 Consult to Physician [CONS] Urgent Comment: Dr. Page spoke with Dr. Bar @ 0511 Consulting Provider: COLTEN BAR Physician Instructions: Reason For Exam: resp failure 01/24/19 05:01 Consult to Dietitian/Nutrition [CONS] Routine Physician Instructions: Reason For Exam: Reason for Consult: Evaluate nutritional intake 01/24/19 06:02 Consult to Physician [CONS] Urgent Comment: DR MCMILLAN NOTIFIED [id number] Consulting Provider: DEMETRIUS GAY Physician Instructions: Reason For Exam: brett 01/26/19 12:00 Consult to Physician [CONS] Routine Comment: Consulting Provider: JESENIA JOHNSON Physician Instructions: Reason For Exam: EKG changes 01/26/19 14:59 Consult to Cardiac Rehabilitation [CONS] Routine Reason For Exam: Cardiac Rehab Evaluation Primary care physician: GELA RESTREPO Hospitalization Reason for admission: Altered level of consciousness and acute respiratory failure Condition: Critical Pertinent studies: CT head CT chest Chest x-ray Procedures: Hemodialysis Vas-Cath placement Cardiac catheterization Hospital course: 73-year-old obese male patient was admitted through emergency room with altered level of consciousness and acute respiratory failure Requiring intubation. Patient was admitted to ICU, evaluated and managed by pulmonary critical, nephrology, Pt had some EKG changes and positive troponin,(cardiology evaluated the patient, patient had stat Cardiac catheterization which revealed Multivessel coronary artery disease, recommend coronary artery bypass graft surg juanito Cardiology initiated the transfer process to [facility] under the care of CT surgeon . Patient will be transferred when [place] transfer center calls back with bed assignment. Patient is critically ill with guarded prognosis Diagnosis and management; --Acute Myocardial infarction: s/p cardiac catheterization today; Severe three-vessel coronary artery disease including his irregular ulcerated stenosis of the distal left main coronary artery Moderate CVAT left ventricular systolic dysfunction with EF 35-40%. Recommend coronary artery bypass surgery Possible transfer to [facility] under the care of CT surgeon . Commercial Construction Superintendent initiated the transfer process Patient may be transferred when [place] accepts the patient Cardiology evaluated, Pt on Heparin drip, Tridil drip, other cardiac medications --Acute hypoxic hypercapnic respiratory failure; intubated on vent, nebulizers, supportive care -- Bilateral airspace disease/possible pneumonia on Rocephin and Zithromax, follow cultures --Acute kidney injury; secondary to ATN; worsening renal function Nephrology initiated hemodialysis, HD per schedule --Hypertensive emergency; present on admission On cardine drip , oral antihypertensives via [place] --Type 2 diabetes mellitus; Accu-Chek sliding scale coverage and ADA diet, insulin as needed --DVT prophylaxis; heparin drip --Full CODE STATUS Possible transfer to [facility] for CABG , [Commercial Construction Superintendent discussed with CT surg ] Disposition: [id number]/TX-70 ANOTHER TYPE HLTHCARE Time spent for discharge: 35 min Core Measure Documentation - Palliative Care Palliative Care/ Comfort Measures: Not Applicable - Core Measures Any of the following diagnoses?: acute MT - Acute MT Discharge Requirements Aspirin at discharge: Yes [place]/ARB for LVSD if EF <40%: Yes Beta carlitos at discharge: Yes Statin for LDL = or >100 mg/dl on DC: Yes Exam - Constitutional Vitals: Temp Pulse Resp BP Pulse Ox 100.0 F H 109 H 16 164/70 97 01/26/19 14:30 01/26/19 17:00 01/26/19 15:30 01/26/19 15:30 01/26/19 17:00 General appearance: Present: no acute distress, well-nourished, obese, other (intubated on vent) - EENT Eyes: Present: PERRL, EOM intact - Neck Neck: Present: supple, normal ROM - Respiratory Respiratory effort: normal Respiratory: bilateral: diminished, rhonchi, negative: rales, wheezing - Cardiovascular Rhythm: regular Heart Sounds: Present: S1 & S2 - Extremities Extremities: no ischemia, No edema - Abdominal General gastrointestinal: Present: soft, non-tender, non-distended, normal bowel sounds - Integumentary Integumentary: Present: clear, warm - Musculoskeletal Musculoskeletal: other (intubated on vent) - Psychiatric Psychiatric: other (intubated on vent) - Neurologic Neurologic: other (intubated on vent) Plan Activity: other (intubated on vent) Additional Instructions: Transfer to [facility] care of Mar Mcdaniel [CT surgeon]. Advised to start Lipitor [ not given as pt is NPO ] Follow up with: GELA RESTREPO MD [Primary Care Provider] - 3-5 Days
[2019-01-26] MEDS ORDERED: SUBLIMAZE IV ONE (22:35)
[2019-01-26] MEDS ORDERED: DIPRIVAN 10 MG/ML IV ONE (22:40)
[2019-01-26 22:58] VITALS: BP 140/80
== END 2019-01-26 23:30 | disposition short-term general hospital (02) | DRG 208 ==
LOC: ED 04:40 → CC1 07:42
PROVIDERS: ADMIT Internal Medicine; ATTEND Internal Medicine
PROC: 0BH17EZ Insertion of Endotracheal Airway into Trachea, Via Natural or Artificial Opening (ICD-10-PCS; 2019-01-24)
PROC: 5A1945Z Respiratory Ventilation, 24-96 Consecutive Hours (ICD-10-PCS; 2019-01-24)
PROC: 4A033R1 Measurement of Arterial Saturation, Peripheral, Percutaneous Approach (ICD-10-PCS; 2019-01-24)
PROC: 5A1D70Z Performance of Urinary Filtration, Intermittent, Less than 6 Hours Per Day (ICD-10-PCS; 2019-01-25)
PROC: 06HN33Z Insertion of Infusion Device into Left Femoral Vein, Percutaneous Approach (ICD-10-PCS; 2019-01-25)
PROC: B54CZZA Ultrasonography of Left Lower Extremity Veins, Guidance (ICD-10-PCS; 2019-01-25)
PROC: B2111ZZ Fluoroscopy of Multiple Coronary Arteries using Low Osmolar Contrast (ICD-10-PCS; principal; 2019-01-26)
PROC: 4A023N7 Measurement of Cardiac Sampling and Pressure, Left Heart, Percutaneous Approach (ICD-10-PCS; 2019-01-26)
PROC: B2151ZZ Fluoroscopy of Left Heart using Low Osmolar Contrast (ICD-10-PCS; 2019-01-26)
PROC: 5A1D70Z Performance of Urinary Filtration, Intermittent, Less than 6 Hours Per Day (ICD-10-PCS; 2019-01-26)
DX: J96.01 Acute respiratory failure with hypoxia (principal); I21.29 ST elevation (STEMI) myocardial infarction involving other sites; G93.41 Metabolic encephalopathy; N17.0 Acute kidney failure with tubular necrosis; J18.8 Other pneumonia, unspecified organism; N18.6 End stage renal disease; R65.10 Systemic inflammatory response syndrome (SIRS) of non-infectious origin without acute organ dysfunction; I16.1 Hypertensive emergency; I12.0 Hypertensive chronic kidney disease with stage 5 chronic kidney disease or end stage renal disease; I77.2 Rupture of artery; J96.02 Acute respiratory failure with hypercapnia; E66.01 Morbid (severe) obesity due to excess calories; E87.70 Fluid overload, unspecified; D64.9 Anemia, unspecified; E11.22 Type 2 diabetes mellitus with diabetic chronic kidney disease; I25.10 Atherosclerotic heart disease of native coronary artery without angina pectoris; Z68.37 Body mass index [BMI] 37.0-37.9, adult; Z79.84 Long term (current) use of oral hypoglycemic drugs; Z79.82 Long term (current) use of aspirin
CPT/HCPCS: 36415; 36600; 70450; 71045; 71250; 74018; 76770; 80048; 80053; 80061; 80074; 80076; 81001; 82140; 82550; 82570; 82803; 83735; 83880; 83930; 84100; 84156; 84300; 84484; 85014; 85018; 85025; 85049; 85347; 85520; 85610; 85730; 86850; 86900; 86901; 87040; 87070; 87086; 87205; 93005; 93010; 93458; 94002; 94003; 96374; 96375; G0378; C1769; C1887; C1894; J0360; J0456; J0696; J1644; J1940; J2250; J2704; J3010; J7030; J7040; J7050; Q9967

== ENCOUNTER 2019-05-08 09:52 | Inpatient (IN) | payer MEDICARE, OTHER ==
--- NOTE | 2019-05-08 10:43 | Emergency Department Report ---
HPI - General Chief Complaint: Recheck/Abnormal Lab/Rx Time Seen by Provider: 05/08/19 10:15 - HPI HPI: 73-year-old -[place] male presents to the emergency department, sent in by dialysis and his deputy clerk of superior court Dr. Diaz, with the complaint of an infected right chest perm-A-Cath. He presents with a culture result showing gram- negative rods, Enterobacter. The patient has a past medical history of hypertension, diabetes, and end-stage renal disease on hemodialysis on Monday/Monday/Monday. He did complete dialysis today. He was given a 1 g dose of Fortaz at about 9 AM this morning the patient himself has no complaints. I spoke with the nephrology service who has asked for the patient to be admitted by the hospitalist service and have Dr. Alonso, vascular surgery, consult about possible catheter placement. ED Past Medical Hx - Past Medical History Hx Hypertension: Yes Hx Diabetes: Yes Hx HIV: No Additional medical history: BORN w/PELVIC RT KIDNEY - Surgical History Additional Surgical History: RT ARM SURGERY 2013 - Social History Smoking Status: Never Smoker Substance Use Type: None - Medications Home Medications: Home Medications Medication Instructions Recorded Confirmed Last Taken Type Lisinopril [Zestril TAB] 20 mg PO DAILY 09/13/14 05/08/19 09/13/14 History AtorvaSTATin [Lipitor] 40 mg PO QHS 05/08/19 05/08/19 Unknown History Carvedilol [Coreg] 25 mg PO BID 05/08/19 05/08/19 Unknown History amLODIPine [Norvasc] 10 mg PO DAILY 05/08/19 05/08/19 Unknown History ED Review of Systems ROS: Stated complaint: INFECTED CATHETER Other details as noted in HPI Comment: All other systems reviewed and negative Constitutional: denies: chills, fever Eyes: denies: eye pain, vision change ENT: denies: ear pain, throat pain Respiratory: denies: cough, shortness of breath Cardiovascular: denies: chest pain, palpitations Gastrointestinal: denies: abdominal pain, vomiting Genitourinary: denies: urgency, dysuria Musculoskeletal: denies: back pain, arthralgia Skin: denies: rash, lesions Neurological: denies: headache, weakness Physical Exam - Physical Exam Vital Signs: Vital Signs 05/08/19 05/08/19 05/08/19 09:55 10:00 10:04 Temperature 98.1 F Pulse Rate 82 81 81 Respiratory 15 13 14 Rate Blood Pressure 161/63 Blood Pressure 161/83 [Right] O2 Sat by Pulse 94 100 98 Oximetry 05/08/19 10:16 Temperature Pulse Rate 78 Respiratory 13 Rate Blood Pressure 149/60 Blood Pressure [Right] O2 Sat by Pulse 100 Oximetry Physical Exam: GENERAL: The patient is well-developed well-nourished. HENT: Normocephalic. Atraumatic. Patient has moist mucous membranes. EYES: Extraocular motions are intact. NECK: Supple. Trachea is midline. CHEST/LUNGS: Clear to auscultation. There is no respiratory distress noted. Right-sided dialysis catheter in place. HEART/CARDIOVASCULAR: Regular. There is no tachycardia. There is no murmur. ABDOMEN: Abdomen is soft, nontender. Patient has normal bowel sounds. There is no abdominal distention. SKIN: Skin is warm and dry. NEURO: The patient is awake, alert, and oriented. The patient is cooperative. The patient has no focal neurologic deficits. The patient has normal speech. MUSCULOSKELETAL: There is no tenderness or deformity. There is no evidence of acute injury. ED Course Vital Signs 05/08/19 05/08/19 05/08/19 09:55 10:00 10:04 Temperature 98.1 F Pulse Rate 82 81 81 Respiratory 15 13 14 Rate Blood Pressure 161/63 Blood Pressure 161/83 [Right] O2 Sat by Pulse 94 100 98 Oximetry 05/08/19 10:16 Temperature Pulse Rate 78 Respiratory 13 Rate Blood Pressure 149/60 Blood Pressure [Right] O2 Sat by Pulse 100 Oximetry - Consultations Consultation #1: 05/08/19 12:59 Dr Leal, vascular surgery, has been contacted and consulted. ED Medical Decision Making - Lab Data Result diagrams: 05/08/19 10:46 05/08/19 10:46 - Medical Decision Making This patient was sent in secondary to the findings of an infected dialysis catheter and the deputy clerk of superior court's concern for bacteremia. He received a dose of Fortaz this morning. The culture results, sent with the patient, show gram- negative rods, Enterobacter. They have requested for the patient to be admitted, receive a vascular consult, and IV antibiotics. Patient's labs thus far has been unremarkable. Blood culture sent. Vital signs stable throughout his ED course. - Differential Diagnosis bacteremia, contamination, infected dialysis catheter, sepsis Critical Care Time: No Critical care attestation.: If time is entered above; I have spent that time in minutes in the direct care of this critically ill patient, excluding procedure time. ED Disposition Clinical Impression: ESRD (end stage renal disease), Bacteremia due to Enterobacter species Infection, dialysis vascular access Qualifiers: Encounter type: initial encounter Qualified Code(s): T82.7XXA - Infection and inflammatory reaction due to other cardiac and vascular devices, implants and grafts, initial encounter HTN (hypertension) Qualifiers: Hypertension type: essential hypertension Qualified Code(s): I10 - Essential (primary) hypertension Complication of vascular dialysis catheter Qualifiers: Device complication type: other Encounter type: initial encounter Qualified Code(s): T82.49XA - Other complication of vascular dialysis catheter, initial encounter Disposition: 09 OP ADMIT IP TO THIS HOSP Is pt being admited?: Yes Condition: Fair Time of Disposition: 13:01
[2019-05-08 11:05] LABS: Basophils % (Auto) 0.2 % (0.0-1.8); Eosinophils # (Auto) 0.1 K/mm3 (0.0-0.4); Eosinophils % (Auto) 0.7 % (0.0-4.3); Hematocrit 35.8 % (35.5-45.6); Lymphocytes # (Auto) 0.4 K/mm3 (1.2-5.4); Lymphocytes % (Auto) 4.4 % (13.4-35.0); Mean Corpuscular HGB Conc 34 % (32-34); Mean Corpuscular Volume 93 fl (84-94); Monocytes # (Auto) 0.8 K/mm3 (0.0-0.8); Monocytes % (Auto) 8.2 % (0.0-7.3); Platelet Count 164 K/mm3 (140-440); Red Blood Count 3.84 M/mm3 (3.65-5.03); Red Cell Distribution Width 14.9 % (13.2-15.2)
[2019-05-08 11:30] LABS: Calcium 8.7 mg/dL (8.4-10.2)
--- NOTE | 2019-05-08 12:16 | History and Physical Report ---
History of Present Illness Chief complaint: My catheter is infected History of present illness: 73 YO Male with ESRD on HD(M,W,F), DM, HTN presents to ED for evaluation. Pt was found to have blood culture that was positive for gram negative rods(Enterobacter). Pt sent by his siding coreboard inspector for evaluation of infected per macath complicated by bacteremia. Pt seen and evaluated in ED and found to have ESRD as well as Infected permacath complicated by bacteremia. Pt denies fever, chills, CP, Palpitations, NVD, Trauma, hematuria, dysuria, productive cough, BRBPR, skin rash or recent ill contacts. Pt admitted to medical floor. Vascular surgery consulted in ED. Pt scheduled for replacement of permacath as per Vascular surgery team. Prior admission on 01/24/19 reviewed. All listed medication reconciled at time of admission. Past History Past Medical History: diabetes, ESRD, hypertension Past Surgical History: Other (AV fistula) Social history: single. denies: smoking, alcohol abuse, prescription drug abuse Family history: diabetes, hypertension Medications and Allergies Allergies Allergy/AdvReac Type Severity Reaction Status Date / Time No Known Allergies Allergy Verified 09/13/14 23:38 Home Medications Medication Instructions Recorded Confirmed Last Taken Type Lisinopril [Zestril TAB] 20 mg PO DAILY 09/13/14 05/08/19 09/13/14 History AtorvaSTATin [Lipitor] 40 mg PO QHS 05/08/19 05/08/19 Unknown History Carvedilol [Coreg] 25 mg PO BID 05/08/19 05/08/19 Unknown History amLODIPine [Norvasc] 10 mg PO DAILY 05/08/19 05/08/19 Unknown History Review of Systems Constitutional: no weight loss, no weight gain, no fever Ears, nose, mouth and throat: no ear pain, no ear discharge, no tinnitis, no nasal congestion Cardiovascular: no chest pain, no orthopnea, no palpitations, no rapid/irregular heart beat, no syncope, no lightheadedness Respiratory: no cough, no excessive sputum, no hemoptysis Gastrointestinal: no nausea, no vomiting, no diarrhea, no constipation, no hematemesis Genitourinary Male: no hematuria, no flank pain, no discharge, no urinary frequency, no urinary hesitancy Rectal: no pain, no incontinence, no bleeding Musculoskeletal: no neck stiffness, no neck pain, no shooting arm pain, no arm numbness/tingling, no low back pain, no shooting leg pain Integumentary: no rash, no pruritis, no redness, no sores, no wounds, no jaundice Psychiatric: no anxiety, no memory loss, no change in sleep habits, no sleep dis turbances, no insomnia, no hypersomnia, no change in appetite Endocrine: no cold intolerance, no heat intolerance, no polyphagia, no excessive thirst, no polydipsia, no polyuria, no excessive sweating Hematologic/Lymphatic: no easy bruising, no easy bleeding Allergic/Immunologic: no urticaria, no allergic rhinitis Exam - Constitutional Vitals: Temp Pulse Resp BP Pulse Ox 98.1 F 78 13 149/60 100 05/08/19 10:04 05/08/19 10:16 05/08/19 10:16 05/08/19 10:16 05/08/19 10:16 General appearance: Present: no acute distress, well-nourished - EENT Eyes: Present: PERRL ENT: hearing intact, clear oral mucosa - Neck Neck: Present: supple, normal ROM - Respiratory Respiratory effort: normal Respiratory: bilateral: CTA - Cardiovascular Heart Sounds: Present: S1 & S2. Absent: rub, click - Extremities Extremities: pulses symmetrical, No edema Peripheral Pulses: within normal limits - Abdominal General gastrointestinal: Present: soft, non-tender, non-distended, normal bowel sounds Male genitourinary: Present: normal - Integumentary Integumentary: Present: clear, warm, dry - Musculoskeletal Musculoskeletal: gait normal, strength equal bilaterally - Psychiatric Psychiatric: appropriate mood/affect, intact judgment & insight - Neurologic Neurologic: CNII-XII intact, moves all extremities Results - Labs CBC & Chem 7: 05/08/19 10:46 05/08/19 10:46 Labs: Abnormal lab results 05/08/19 05/08/19 Range/Units 10:46 10:46 Lymph % (Auto) 4.4 L (13.4-35.0) % [place] % (Auto) 8.2 H (0.0-7.3) % Lymph # 0.4 L (1.2-5.4) K/mm3 Seg Neutrophils % 86.5 H (40.0-70.0) % Seg Neutrophils # 8.1 H (1.8-7.7) K/mm3 Sodium 134 L (137-145) mmol/L Chloride 97.8 L (98-107) mmol/L Creatinine 5.1 H (0.8-1.5) mg/dL Glucose 62 L (75-100) mg/dL Assessment and Plan - Patient Problems (1) ESRD (end stage renal disease) Current Visit: Yes Status: Acute Plan to address problem: Nephrology consulted in ED, dialysis as per renal team, strict I/O, daily weight, monitor uop q shift, avoid nephrotoxic agents. (2) Bacteremia due to Enterobacter species Current Visit: Yes Status: Acute Plan to address problem: IV antibiotic therapy, blood cultures, supportive care, Pending permacath replacement. (3) HTN (hypertension) Current Visit: Yes Status: Acute Qualifiers: Hypertension type: essential hypertension Qualified Code(s): I10 - Essential (primary) hypertension Plan to address problem: monitor BP q shift, supportive care. (4) Diabetes Current Visit: Yes Status: Acute Plan to address problem: ADA diet, insulin, accu check, hypoglycemia protocol (5) Complication of vascular dialysis catheter Current Visit: Yes Status: Acute Qualifiers: Device complication type: other Encounter type: initial encounter Qualified Code(s): T82.49XA - Other complication of vascular dialysis catheter, initial encounter Plan to address problem: Suspected permacath infection complicated by bacteremia: vascular service consulted, pending catheter replacement. (6) DVT prophylaxis Current Visit: Yes Status: Acute Plan to address problem: SCD to BLE while in bed, Pt ambulatory
[2019-05-08] MEDS ORDERED: ZOFRAN IV PRN (12:17)
[2019-05-08] MEDS ORDERED: TYLENOL PO PRN (12:17)
[2019-05-08] MEDS ORDERED: SODIUM CHLORIDE FLUSH SYRINGE 10 ML IV PRN (12:17)
[2019-05-08] MEDS ORDERED: D50W (25GM) Syringe IV PRN (12:58)
[2019-05-08] MEDS: HumaLOG SUB-Q SCH ×2 (16:38→22:36)
--- NOTE | 2019-05-08 17:31 | Consultation ---
History of Present Illness - Reason for Consult Consult date: 05/08/19 Bacteremia, possible permacath infection - History of Present Illness This pt is a 73 yo AAM sent to the [facility] ER where he has since been admitted on 05/08/19 due to a Bacteremia. He has ESRD on HD through a RIJ PC. This was placed at [place] [facility]. He is s/p a LUE Elevated Basilic AVF by Dr Garcia ~2wks ago. Blood cx's were drawn at an outside facility and are reportedly positive (full details are not available to me currently). Confirmatory cultures have been ordered. There is concern that his RIJ PC may have become infected. He has been started on intravenous antibiotics, and a vascular surgery consult has been requested to further evaluate. Past History Past Medical History: CAD (recently admitted to [facility] and sent to [facility] for possible CABG, though this was reportedly cx'd. Pt was subsequently d/c'd to rehab after a 30 day hospitalization.), diabetes, dialysis, ESRD, hypertension Past Surgical History: Other (LUE Elevated basilic AVF, Femoral VC placement, RIJ permacath placement) Social history: single. denies: smoking, alcohol abuse, prescription drug abuse Family history: diabetes, hypertension Medications and Allergies Allergies Allergy/AdvReac Type Severity Reaction Status Date / Time No Known Allergies Allergy Verified 09/13/14 23:38 Home Medications Medication Instructions Recorded Confirmed Last Taken Type Lisinopril [Zestril TAB] 20 mg PO DAILY 09/13/14 05/08/19 09/13/14 History AtorvaSTATin [Lipitor] 40 mg PO QHS 05/08/19 05/08/19 Unknown History Carvedilol [Coreg] 25 mg PO BID 05/08/19 05/08/19 Unknown History amLODIPine [Norvasc] 10 mg PO DAILY 05/08/19 05/08/19 Unknown History Active Meds: Active Medications Acetaminophen (Tylenol) 650 mg PO Q4H PRN PRN Reason: Pain MILD(1-3)/Fever >100.5/[facility] Amlodipine Besylate (Norvasc) 10 mg PO DAILY [facility] Atorvastatin Calcium (Lipitor) 40 mg PO QHS [facility] Carvedilol (Coreg) 25 mg PO BID [facility] Dextrose (D50w (25gm) Syringe) 50 ml IV PRN PRN PRN Reason: Hypoglycemia Cefepime HCl (Maxipime/Ns 1 Gm/100 Ml) 1 gm in 100 mls @ 200 mls/hr IV Q24H [facility]; Protocol Insulin Human Lispro (Humalog) 0 unit SUB-Q ACHS [facility]; Protocol Last Admin: 05/08/19 16:38 Dose: Not Given Documented by: Lisinopril (Zestril) 20 mg PO DAILY [facility] Ondansetron HCl (Zofran) 4 mg IV Q8H PRN PRN Reason: Nausea And Vomiting Sodium Chloride (Sodium Chloride Flush Syringe 10 Ml) 10 ml IV BID [facility] Sodium Chloride (Sodium Chloride Flush Syringe 10 Ml) 10 ml IV PRN PRN PRN Reason: LINE FLUSH Review of Systems All systems: negative Exam - Constitutional Vitals: Temp Pulse Resp BP Pulse Ox 98.8 F 74 20 143/84 100 05/08/19 13:26 05/08/19 13:38 05/08/19 13:38 05/08/19 13:26 05/08/19 13:38 General appearance: Present: no acute distress - EENT Eyes: Present: EOM intact ENT: hearing intact - Neck Neck: Present: supple (RIJ PC in place, no erythema, induration, tenderness, or drainage from the exit site or along the tunnel.) - Respiratory Respiratory effort: normal - Cardiovascular Rhythm: regular - Extremities Extremities: no ischemia, abnormal (LUE upper arm incisions appear healed. No erythema or drainage. Good thrill in AVF ) - Psychiatric Psychiatric: appropriate mood/affect, intact judgment & insight, cooperative - Neurologic Neurologic: no focal deficits Results - Labs CBC & Chem 7: 05/08/19 10:46 05/08/19 10:46 Labs: Abnormal lab results 05/08/19 05/08/19 05/08/19 Range/Units 10:46 10:46 13:50 Lymph % (Auto) 4.4 L (13.4-35.0) % Gates % (Auto) 8.2 H (0.0-7.3) % Lymph # 0.4 L (1.2-5.4) K/mm3 Seg Neutrophils % 86.5 H (40.0-70.0) % Seg Neutrophils # 8.1 H (1.8-7.7) K/mm3 Sodium 134 L (137-145) mmol/L Chloride 97.8 L (98-107) mmol/L Creatinine 5.1 H (0.8-1.5) mg/dL Glucose 62 L (75-100) mg/dL POC Glucose 123 H (70-105) Assessment and Plan This pt has ESRD on HD. He had a RIJ PC placed at [facility] which he uses for HD. He was noted to be bacteremic as an outpt. Therefore he was sent to the [facility] ER where he has since been admitted. With concerns that his PC has become infected a vascular surgery consult has been requested to further evaluate. Discussed options with the Pt. He apparently has been on intravenous antibiotics starting as an outpt. He is afebrile and without chills at present. We will exchange his catheter over a wire. The pt states understanding and agrees to proceed. This will be performed in the civil laboratory technician, utilizing fluoroscopic and u/s guidance as needed. keno terminal operator HD access already in place. He is s/p creation of LUE AVF by Dr Garcia at [facility] as an outpt ~2wks ago. It is not ready for use at this point. - Patient Problems (1) Bacteremia Current Visit: Yes Status: Acute (2) Complication of vascular dialysis catheter Current Visit: Yes Status: Suspected Qualifiers: Device complication type: other Encounter type: initial encounter Qualified Code(s): T82.49XA - Other complication of vascular dialysis catheter, initial encounter (3) ESRD (end stage renal disease) Current Visit: Yes Status: Acute (4) HTN (hypertension) Current Visit: Yes Status: Acute Qualifiers: Hypertension type: essential hypertension Qualified Code(s): I10 - Essential (primary) hypertension
[2019-05-08] MEDS ORDERED: SUBLIMAZE ONE (17:37)
[2019-05-08] MEDS ORDERED: VERSED ONE (17:37)
[2019-05-08] MEDS ORDERED: NACL 0.9% 250ML 250 ML ONE (17:38)
[2019-05-08] MEDS ORDERED: XYLOCAINE 2% INFILTRATI ONE (17:38)
[2019-05-08] MEDS ORDERED: HEPARIN/NS 5000 UNIT/500ML(CATH LAB) 500 ML IR ONE (17:38)
[2019-05-08] MEDS: HEPARIN 10,000 UNITS/10 ML ONE ×2 (18:37→18:38)
--- NOTE | 2019-05-08 19:14 | Operative Report ---
Operative Report Operative Report: Date of procedure: 05/08/2019 Pre-operative diagnosis: Infected permacath, end-stage renal disease Post-operative diagnosis: Same Procedure name(s): Complete exchange of permacath, right internal jugular vein using same venous access site, fluoroscopic evaluation Surgeon: Aren Leal MD Chief Port Director: None Anesthesia: Moderate sedation starting time 1820-ending time 1846 total sedation time 27 minutes EBL: Minimal Specimen(s): Catheter discarded Complications: None Findings: Old catheter removed. No thrombus. The catheter placed with excellent flow. Catheter ready for use. Procedure: Patient is supine position with the head rotated to the left and right anterior neck and chest were prepped and draped using standard sterile technique. After moderate sedation was administered local anesthesia was utilized around the catheter exit site and once adequate infiltration was achie bill with combination of blunt and sharp dissection was used to release subcutaneous cuff from the surrounding tissue freeing the catheter. Sequentially stiff Glidewire were placed through each catheter limb and advanced into the inferior vena cava and then the old catheter was removed leaving the stiff glide skin place. ChloraPrep was then used to reprep the exit site and completely prepped the stiff Glidewire. A new 23 cm Bard glidepath permacatheter was advanced over the wires and using fluoroscopic guidance to seat the catheter tip in the right atrium. All lumens were aspirated and flus hed and primed using concentrated heparin saline solution. Sterile caps were applied. Catheter was anchored to the skin using Prolene suture and the remaining opening of the exit site was closed using chromic suture in cerclage fashion. A Biopatch was placed in a sterile dressing was applied. Fluoroscopy confirmed excellent positioning of the catheter. The catheter is ready for use. She was returned to the supine position and to the recovery area in stable condition having tolerated the procedure well.
[2019-05-08] MEDS ORDERED: MAXIPIME/NS 1 GM/100 ML 1 GM/100 ML BAG IV SCH (22:00)
[2019-05-08] MEDS: COREG PO SCH (22:35)
[2019-05-08] MEDS: SODIUM CHLORIDE FLUSH SYRINGE 10 ML IV SCH (22:36)
[2019-05-09] MEDS: HumaLOG SUB-Q SCH ×2 (07:58→11:50)
--- NOTE | 2019-05-09 09:13 | Consultation ---
History of Present Illness - Reason for Consult Consult date: 05/09/19 end stage renal disease Requesting physician: CHRIS ZHAO - History of Present Illness 73 YO Male with ESRD on HD(M,W,F), DM, HTN presents to ED for evaluation. Pt was found to have blood culture that was positive for gram negative rods(Enterobacter). Pt sent for evaluation of infected permacath complicated by bacteremia. Pt seen and evaluated in ED and found to have ESRD as well as Infected permacath complicated by bacteremia. Pt denies fever, chills, CP, Palpitations, NVD, Trauma, hematuria, dysuria, productive cough, BRBPR, skin rash or recent ill contacts. Pt admitted to medical floor. Vascular surgery consulted in ED. Patient had chills during his dialysis treatment last week. Blood cultures were drawn and he was started on intravenous vancomycin. However cultures yesterday were reported as showing gram-negative rods and therefore he is admitted. He was also given 1 dose of Fortaz at dialysis yesterday. His PermCath has been exchanged by vascular surgery last night Past History Past Medical History: CAD (recently admitted to [facility] and sent to [place] for possible CABG, though this was reportedly cx'd. Pt was subsequently d/c'd to the [facility] after a 30 day hospitalization.), diabetes, dialysis, ESRD, hypertension Past Surgical History: Other (LUE Elevated basilic AVF, Femoral VC placement, RIJ permacath placement) Social history: single. denies: smoking, alcohol abuse, prescription drug abuse Family history: diabetes, hypertension Medications and Allergies Allergies Allergy/AdvReac Type Severity Reaction Status Date / Time No Known Allergies Allergy Verified 09/13/14 23:38 Home Medications Medication Instructions Recorded Confirmed Last Taken Type Lisinopril [Zestril TAB] 20 mg PO DAILY 09/13/14 05/08/19 09/13/14 History Aspirin 81 mg PO DAILY 05/08/19 05/08/19 Unknown History AtorvaSTATin [Lipitor] 40 mg PO QHS 05/08/19 05/08/19 Unknown History Carvedilol [Coreg] 25 mg PO BID 05/08/19 05/08/19 Unknown History Plavix 75 mg PO DAILY 05/08/19 05/08/19 Unknown History Ramelteon 8 mg PO QHS 05/08/19 05/08/19 Unknown History amLODIPine [Norvasc] 10 mg PO DAILY 05/08/19 05/08/19 Unknown History Active Meds: Active Medications Acetaminophen (Tylenol) 650 mg PO Q4H PRN PRN Reason: Pain MILD(1-3)/Fever >100.5/[place] Amlodipine Besylate (Norvasc) 10 mg PO DAILY [facility] Atorvastatin Calcium (Lipitor) 40 mg PO QHS [facility] Last Admin: 05/08/19 22:35 Dose: 40 mg Documented by: Carvedilol (Coreg) 25 mg PO BID [facility] Last Admin: 05/08/19 22:35 Dose: 25 mg Documented by: Dextrose (D50w (25gm) Syringe) 50 ml IV PRN PRN PRN Reason: Hypoglycemia Last Admin: 05/09/19 08:05 Dose: 50 ml Documented by: Cefepime HCl (Maxipime/Ns 1 Gm/100 Ml) 1 gm in 100 mls @ 200 mls/hr IV Q24H [facility]; Protocol Last Admin: 05/08/19 22:35 Dose: 200 mls/hr Documented by: Insulin Human Lispro (Humalog) 0 unit SUB-Q ACHS [facility]; Protocol Last Admin: 05/09/19 07:58 Dose: Not Given Documented by: Lisinopril (Zestril) 20 mg PO DAILY [facility] Ondansetron HCl (Zofran) 4 mg IV Q8H PRN PRN Reason: Nausea And Vomiting Sodium Chloride (Sodium Chloride Flush Syringe 10 Ml) 10 ml IV BID [facility] Last Admin: 05/08/19 22:36 Dose: 10 ml Documented by: Sodium Chloride (Sodium Chloride Flush Syringe 10 Ml) 10 ml IV PRN PRN PRN Reason: LINE FLUSH Review of Systems All systems: negative (negative except as noted above) Exam - Vital Signs Vital signs: Vital Signs Pulse Resp Pulse Ox 82 15 94 05/08/19 09:55 05/08/19 09:55 05/08/19 09:55 - General Appearance General appearance: well-developed, well-nourished, appears stated age EENT: PERRL, mucous membranes moist Neck: Present: neck supple, trachea midline, Other (right IJ PermCath in place). Absent: JVD/HJR, Masses Respiratory: Clear to Ascultation Heart: regular, normal heart rate Gastrointestinal: Present: normal, normoactive bowel sounds Integumentary: no rash, other (no edema) Results - Lab Results 05/08/19 10:46 05/09/19 08:32 Most recent lab results Calcium 8.7 mg/dL (8.4-10.2) 05/08/19 10:46 Assessment and Plan Impression * End-stage renal disease on maintenance hemodialysis * Gram-negative bacteremia most likely secondary to infected PermCath * Hypertension * Coronary artery disease * Anemia secondary to ESRD * Diabetes Recommendations * Patient is status post PermCath exchange by vascular surgery on 05/08/2019 * Clinically patient does not appear to be septic. He is also afebrile and he also does not have leukocytosis * Patient undergoes dialysis at [facility] on MWF schedule * He did complete his hemodialysis treatment yesterday. No indication for dialysis today * Okay to discharge patient home from renal standpoint * Follow up on results of repeat blood culture * Made arrangements for patient to receive Fortaz 1 g every treatment for 2 we eks as outpatient at the dialysis facility * Thank you very much for the consultation. Shall follow along with you
[2019-05-09] MEDS ORDERED: ZESTRIL PO SCH (10:00)
[2019-05-09] MEDS ORDERED: NORVASC PO SCH (10:00)
[2019-05-09] MEDS: COREG PO SCH (10:03)
[2019-05-09 10:05] VITALS: BP 126/62
[2019-05-09] MEDS ORDERED: NON-FORMULARY (Plavix 75 MG) PO SCH (10:30)
--- NOTE | 2019-05-09 10:41 | Discharge Summary ---
Providers - Providers Date of Admission: 05/08/19 12:17 Attending physician: CHRIS ZHAO MD 05/08/19 10:36 Consult to Physician [CONS] Routine Comment: called office/ keren Consulting Provider: HERI LEON Physician Instructions: Reason For Exam: infected permacath, replacement 05/08/19 11:39 Consult to Physician [CONS] Routine Comment: called answering service/keren Consulting Provider: BRUNO VELASQUEZ Physician Instructions: Reason For Exam: dialysis 05/09/19 09:22 Physical Therapy Evaluation and Treat [CONS] Routine Comment: Reason For Exam: Weakness Primary care physician: DAJA MARTIN Hospitalization Reason for admission: MALFUNCTIONING DIALYSIS ACCESS Condition: Stable Hospital course: 73 YO Male with ESRD on HD(M,W,F), DM, HTN presents to ED for evaluation. Pt was found to have blood culture that was positive for gram negative rods(Enterobacter). Pt sent by his watch repairer for evaluation of infected permacath complicated by bacteremia. Pt seen and evaluated in ED and found to have ESRD as well THOUGHT TO BE Infected permacath complicated by bacteremia. Pt denies fever, chills, CP, Palpitations, NVD, Trauma, hematuria, dysuria, productive cough, BRBPR, skin rash or recent ill contacts. Pt admitted to medical floor. Vascular surgery consulted in ED. Pt scheduled for replacement of permacath as per Vascular surgery team. Prior admission on 01/24/19 reviewed. patient was seen by vascular surgery and permacath placed AND TREATED WITH ABX, CULTURES SHoWED NO MARLEY Patient undergoes dialysis at [facility] on MWF and will return to He did complete his hemodialysis treatment and discharged to continue with current schedule Diagnosis discharge (1) ESRD (end stage renal disease) (2) Bacteremia due to Enterobacter species (3) HTN (hypertension) (4) Diabetes Mellitus (5) Complication of vascular dialysis catheter (6) Anemia secondary ESRD (7) Suspected permacath infection complicated by bacteremia: Disposition: - TO HOME OR SELFCARE Time spent for discharge: 35 MINS Core Measure Documentation - Palliative Care Palliative Care/ Comfort Measures: Not Applicable - Core Measures Any of the following diagnoses?: none Exam - Physical Exam Narrative exam: General appearance: Present: no acute distress, well-nourished - EENT Eyes: Present: PERRL ENT: hearing intact, clear oral mucosa - Neck Neck: Present: supple, normal ROM - Respiratory Respiratory effort: normal Respiratory: bilateral: CTA - Cardiovascular Heart Sounds: Present: S1 & S2. Absent: rub, click - Extremities Extremities: pulses symmetrical, No edema Peripheral Pulses: within normal limits - Abdominal General gastrointestinal: Present: soft, non-tender, non-distended, normal bowel sounds Male genitourinary: Present: normal - Integumentary Integumentary: Present: clear, warm, dry - Musculoskeletal Musculoskeletal: gait normal, strength equal bilaterally - Psychiatric Psychiatric: appropriate mood/affect, intact judgment & insight - Neurologic Neurologic: CNII-XII intact, moves all extremities - Constitutional Vitals: Temp Pulse Resp BP Pulse Ox 97.7 F 69 20 126/62 100 05/09/19 07:30 05/09/19 10:03 05/09/19 07:30 05/09/19 10:03 05/09/19 08:41 Plan Activity: advance as tolerated, fall precautions Diet: low fat, diabetic, renal Special Instructions: record daily BP diary, record blood sugar diary Additional Instructions: CONTINUE DIALYSIS ON CURRENT SCHEDULE Follow up with: DAJA MARTIN PA [Primary Care Provider] - 3-5 Days BRUNO VELASQUEZ MD [Staff Physician] - 7 Days HERI LEON MD [Staff Physician] - 7 Days
[2019-05-09] MEDS ORDERED: PLAVIX PO SCH (12:00)
[2019-05-09] MEDS: SODIUM CHLORIDE FLUSH SYRINGE 10 ML IV SCH (12:00)
[2019-05-09] MEDS ORDERED: BABY ASPIRIN PO SCH (12:00)
[2019-05-09] MEDS ORDERED: RAMELTEON 8 MG PO SCH (22:00)
[2019-05-10] MEDS ORDERED: NON-FORMULARY (Aspirin 81 MG) PO SCH (10:00)
== END 2019-05-09 12:15 | disposition home or self-care (01) | DRG 314 ==
LOC: ED 09:52 → 2B-ACE 12:17
PROVIDERS: ADMIT Internal Medicine; ATTEND Internal Medicine
PROC: 0J2TXYZ Change Other Device in Trunk Subcutaneous Tissue and Fascia, External Approach (ICD-10-PCS; principal; 2019-05-08)
DX: T82.7XXA Infection and inflammatory reaction due to other cardiac and vascular devices, implants and grafts, initial encounter (principal); N18.6 End stage renal disease; R78.81 Bacteremia; I12.0 Hypertensive chronic kidney disease with stage 5 chronic kidney disease or end stage renal disease; Y83.8 Other surgical procedures as the cause of abnormal reaction of the patient, or of later complication, without mention of misadventure at the time of the procedure; E11.22 Type 2 diabetes mellitus with diabetic chronic kidney disease; B96.89 Other specified bacterial agents as the cause of diseases classified elsewhere; Z83.3 Family history of diabetes mellitus; Z99.2 Dependence on renal dialysis; Z82.49 Family history of ischemic heart disease and other diseases of the circulatory system; Y92.098 Other place in other non-institutional residence as the place of occurrence of the external cause
CPT/HCPCS: 36415; 36581; 77001; 80048; 82947; 82962; 85025; 87040; 87116; 96374; 99285; G0378; A9270-GY; C1750; C1769; J0692; J1644; J2250; J3010; J7050

== ENCOUNTER 2021-11-22 03:30 | Inpatient (IN) | payer MEDICARE, OTHER ==
--- NOTE | 2021-11-22 03:56 | Emergency Department Report ---
ED Shortness of Breath HPI - General Chief Complaint: Dyspnea/Respdistress Stated Complaint: DIFF BREATHING Time Seen by Provider: 11/22/21 03:45 Source: patient, EMS Mode of arrival: Stretcher Limitations: Other - History of Present Illness Initial Comments: 76-year-old male with a past medical history obesity, end-stage renal disease on dialysis Monday, Monday, and Monday, CAD with multivessel disease, diabetes, and hypertension presents to the hospital complaints of shortness of breath that started around 2:30 AM. Patient noted to have a room air saturation of 86% upon EMS arrival that only increased to 89% nonrebreather. Patient required CPAP support during ED transport and was treated with albuterol 5 mg for audible rails. Patient is due for dialysis this a.m. Patient also reports he was admitted to a [facility] recently and treated for Covid. Pt cant recall the name of his recreational therapist. as per medical record review pt developed stemi during admission Cardiac cath performed during 2019 admission revealed: Severe three-vessel coronary artery disease including his irregular ulcerated stenosis of the distal left main coronary artery Moderate CVAT left ventricular systolic dysfunction with EF 35-40%. Patient required transfer to [place] 12/2018 - Related Data Home Medications Medication Instructions Recorded Confirmed Last Taken lisinopriL [Zestril TAB] 20 mg PO DAILY 09/13/14 05/08/19 09/13/14 Aspirin 81 mg PO DAILY 05/08/19 05/08/19 Unknown AtorvaSTATin [Lipitor] 40 mg PO QHS 05/08/19 05/08/19 Unknown Plavix 75 mg PO DAILY 05/08/19 05/08/19 Unknown Ramelteon 8 mg PO QHS 05/08/19 05/08/19 Unknown amLODIPine 10 mg PO DAILY 05/08/19 05/08/19 Unknown carvediloL [Coreg] 25 mg PO BID 05/08/19 05/08/19 Unknown Allergies Allergy/AdvReac Type Severity Reaction Status Date / Time No Known Allergies Allergy Verified 09/13/14 23:38 ED Review of Systems ROS: Stated complaint: DIFF BREATHING Other details as noted in HPI Comment: All other systems reviewed and negative ED Past Medical Hx - Past Medical History Hx Hypertension: Yes Hx Diabetes: Yes Hx Renal Disease: Yes Hx HIV: No Additional medical history: BORN w/PELVIC RT KIDNEY, MWF - Surgical History Past Surgical History?: Yes Additional Surgical History: RT ARM SURGERY 2013, DIALYSIS [facility] - Social History Smoking Status: Never Smoker - Medications Home Medications: Home Medications Medication Instructions Recorded Confirmed Last Taken Type lisinopriL [Zestril TAB] 20 mg PO DAILY 09/13/14 05/08/19 09/13/14 History Aspirin 81 mg PO DAILY 05/08/19 05/08/19 Unknown History AtorvaSTATin [Lipitor] 40 mg PO QHS 05/08/19 05/08/19 Unknown History Plavix 75 mg PO DAILY 05/08/19 05/08/19 Unknown History Ramelteon 8 mg PO QHS 05/08/19 05/08/19 Unknown History amLODIPine 10 mg PO DAILY 05/08/19 05/08/19 Unknown History carvediloL [Coreg] 25 mg PO BID 05/08/19 05/08/19 Unknown History ED Physical Exam - General Limitations: Altered Mental Status - Other Other exam information: General: Respiratory distress improved on BiPAP Head: Atraumatic Eyes: normal appearance ENT: Moist mucous membranes Neck: Normal appearance, no midline tenderness Chest: Bilateral crackles at bases, tachypnea CV: Regular rate and rhythm Abdomen: Soft, normal bowel sounds, nontender, nondistended, no rebound or guarding Back: Normal inspection Extremity: Bilateral lower extremity 1+ pitting edema Neuro: Alert O x 3, no facial asymmetry, speech clear, no gross motor sensory deficit Psych: Appropriate behavior Skin: No rash ED Course Vital Signs 11/22/21 11/22/21 11/22/21 03:43 03:45 03:46 Temperature Pulse Rate 96 H 96 H Respiratory 29 H 32 H 26 H Rate Blood Pressure O2 Sat by Pulse 100 100 Oximetry O2 Sat by Pulse Oximetry [ Posterior Bilateral] 11/22/21 11/22/21 11/22/21 04:00 04:16 04:30 Temperature Pulse Rate 95 H 89 87 Respiratory 23 20 20 Rate Blood Pressure 167/95 189/81 184/89 O2 Sat by Pulse 100 100 100 Oximetry O2 Sat by Pulse Oximetry [ Posterior Bilateral] 11/22/21 11/22/21 11/22/21 04:46 05:00 05:16 Temperature Pulse Rate 83 78 79 Respiratory 36 H 16 14 Rate Blood Pressure 153/120 193/87 180/85 O2 Sat by Pulse 100 100 100 Oximetry O2 Sat by Pulse Oximetry [ Posterior Bilateral] 11/22/21 11/22/21 11/22/21 05:30 05:46 06:00 Temperature Pulse Rate 76 81 75 Respiratory 15 16 18 Rate Blood Pressure 173/91 183/94 O2 Sat by Pulse 100 100 100 Oximetry O2 Sat by Pulse Oximetry [ Posterior Bilateral] 11/22/21 11/22/21 11/22/21 06:15 06:31 06:45 Temperature Pulse Rate 73 72 70 Respiratory 12 13 16 Rate Blood Pressure 186/97 183/92 176/97 O2 Sat by Pulse 100 100 100 Oximetry O2 Sat by Pulse Oximetry [ Posterior Bilateral] 11/22/21 11/22/21 11/22/21 07:01 07:15 07:31 Temperature Pulse Rate 79 78 72 Respiratory 16 13 15 Rate Blood Pressure 177/93 176/89 198/87 O2 Sat by Pulse 100 100 100 Oximetry O2 Sat by Pulse Oximetry [ Posterior Bilateral] 11/22/21 11/22/21 11/22/21 07:45 08:01 08:15 Temperature Pulse Rate 71 69 74 Respiratory 17 12 15 Rate Blood Pressure 158/97 179/86 179/86 O2 Sat by Pulse 100 100 100 Oximetry O2 Sat by Pulse Oximetry [ Posterior Bilateral] 11/22/21 11/22/21 11/22/21 08:24 08:31 09:00 Temperature Pulse Rate 80 83 Respiratory 11 L Rate Blood Pressure 179/86 151/81 O2 Sat by Pulse 100 100 Oximetry O2 Sat by Pulse Oximetry [ Posterior Bilateral] 11/22/21 11/22/21 11/22/21 09:15 09:30 09:45 Temperature Pulse Rate 80 76 74 Respiratory Rate Blood Pressure 168/88 180/88 186/97 O2 Sat by Pulse Oximetry O2 Sat by Pulse Oximetry [ Posterior Bilateral] 11/22/21 11/22/21 11/22/21 10:00 10:15 10:30 Temperature Pulse Rate 75 75 75 Respiratory Rate Blood Pressure 178/81 197/80 208/89 O2 Sat by Pulse Oximetry O2 Sat by Pulse Oximetry [ Posterior Bilateral] 11/22/21 11/22/21 11/22/21 10:45 11:00 11:07 Temperature 98.8 F Pulse Rate 80 77 88 Respiratory 20 Rate Blood Pressure 196/112 191/96 187/87 O2 Sat by Pulse Oximetry O2 Sat by Pulse 98 Oximetry [ Posterior Bilateral] 11/22/21 11/22/21 11/22/21 11:15 11:30 11:45 Temperature Pulse Rate 75 76 77 Respiratory Rate Blood Pressure 197/94 167/91 179/82 O2 Sat by Pulse Oximetry O2 Sat by Pulse Oximetry [ Posterior Bilateral] 11/22/21 11/22/21 11/22/21 12:00 12:30 14:03 Temperature 98.2 F Pulse Rate 80 77 Respiratory 80 H Rate Blood Pressure 170/77 166/82 192/61 O2 Sat by Pulse 97 Oximetry O2 Sat by Pulse 98 Oximetry [ Posterior Bilateral] 11/22/21 11/22/21 11/22/21 14:15 14:31 14:45 Temperature Pulse Rate Respiratory Rate Blood Pressure 192/61 192/61 192/61 O2 Sat by Pulse 95 96 95 Oximetry O2 Sat by Pulse Oximetry [ Posterior Bilateral] 11/22/21 11/22/21 11/22/21 15:01 15:15 15:31 Temperature Pulse Rate Respiratory Rate Blood Pressure 186/65 186/65 186/65 O2 Sat by Pulse 97 97 96 Oximetry O2 Sat by Pulse Oximetry [ Posterior Bilateral] 11/22/21 11/22/21 11/22/21 15:45 16:01 16:15 Temperature Pulse Rate Respiratory Rate Blood Pressure 186/65 186/65 186/65 O2 Sat by Pulse 96 96 96 Oximetry O2 Sat by Pulse Oximetry [ Posterior Bilateral] 11/22/21 11/22/21 11/22/21 16:31 16:45 17:01 Temperature Pulse Rate Respiratory Rate Blood Pressure 176/74 176/74 176/74 O2 Sat by Pulse 96 93 92 Oximetry O2 Sat by Pulse Oximetry [ Posterior Bilateral] 11/22/21 11/22/21 17:15 17:31 Temperature Pulse Rate Respiratory Rate Blood Pressure 176/74 176/74 O2 Sat by Pulse 96 96 Oximetry O2 Sat by Pulse Oximetry [ Posterior Bilateral] - Consultations Consultation #1: 11/22/21 05:[address] Higginbotham on-call recreational therapist will manage dialysis ED Medical Decision Making - Lab Data Result diagrams: 11/22/21 04:00 11/22/21 04:00 Lab Results 11/22/21 11/22/21 11/22/21 Range/Units 03:57 04:00 04:00 WBC 7.3 (4.5-11.0) K/mm3 RBC 3.02 L (3.65-5.03) M/mm3 Hgb 9.5 L (11.8-15.2) gm/dl Hct 28.8 L (35.5-45.6) % MCV 95 H (84-94) fl MCH 31 (28-32) pg MCHC 33 (32-34) % RDW 13.2 (13.2-15.2) % Plt Count 200 (140-440) K/mm3 Lymph % (Auto) 11.8 L (13.4-35.0) % Williamson % (Auto) 8.6 H (0.0-7.3) % Eos % (Auto) 3.0 (0.0-4.3) % Baso % (Auto) 0.8 (0.0-1.8) % Lymph # (Auto) 0.9 L (1.2-5.4) K/mm3 [place] # (Auto) 0.6 (0.0-0.8) K/mm3 Eos # (Auto) 0.2 (0.0-0.4) K/mm3 Baso # (Auto) 0.1 (0.0-0.1) K/mm3 Seg Neutrophils % 75.8 H (40.0-70.0) % Seg Neutrophils # 5.5 (1.8-7.7) K/mm3 PT 14.1 (12.2-14.9) Sec. INR 0.98 (0.87-1.13) ABG pH 7.335 L (7.350-7.450) pH Units ABG pCO2 41.4 mm Hg ABG pO2 163.4 H (80.0-90.0) mm Hg ABG HCO3 21.6 (20.0-26.0) mmol/L ABG O2 Saturation 98.9 (95.0-99.0) % ABG O2 Content 12.6 (0.0-44) ABG Base Excess -4.0 L (-2.0-3.0) mmol/L ABG Hemoglobin 8.9 L (14.0-18.0) gm/dl ABG Carboxyhemoglobin 0.8 (0.0-5.0) % ABG Methemoglobin 0.5 (0.0-1.5) % Oxyhemoglobin 97.6 (95.0-99.0) % FiO2 60 % Sodium (137-145) mmol/L Potassium (3.6-5.0) mmol/L Chloride (98-107) mmol/L Carbon Dioxide (22-30) mmol/L Anion Gap mmol/L BUN (9-20) mg/dL Creatinine (0.8-1.3) mg/dL Estimated GFR ml/min BUN/Creatinine Ratio % Glucose (75-100) mg/dL Calcium (8.4-10.2) mg/dL Total Bilirubin (0.1-1.2) mg/dL AST (5-40) units/L ALT (7-56) units/L Alkaline Phosphatase (35-129) units/L Troponin T (0.00-0.029) ng/mL NT-Pro-B Natriuret Pep (0-900) pg/mL Total Protein (6.3-8.2) g/dL Albumin (3.9-5) g/dL Albumin/Globulin Ratio % Triglycerides (2-149) mg/dL Cholesterol (50-199) mg/dL LDL Cholesterol Direct (50-130) mg/dL HDL Cholesterol (40-59) mg/dL Cholesterol/HDL Ratio % 11/22/21 Range/Units 04:00 WBC (4.5-11.0) K/mm3 RBC (3.65-5.03) M/mm3 Hgb (11.8-15.2) gm/dl Hct (35.5-45.6) % MCV (84-94) fl MCH (28-32) pg MCHC (32-34) % RDW (13.2-15.2) % Plt Count (140-440) K/mm3 Lymph % (Auto) (13.4-35.0) % Williamson % (Auto) (0.0-7.3) % Eos % (Auto) (0.0-4.3) % Baso % (Auto) (0.0-1.8) % Lymph # (Auto) (1.2-5.4) K/mm3 Williamson # (Auto) (0.0-0.8) K/mm3 Eos # (Auto) (0.0-0.4) K/mm3 Baso # (Auto) (0.0-0.1) K/mm3 Seg Neutrophils % (40.0-70.0) % Seg Neutrophils # (1.8-7.7) K/mm3 PT (12.2-14.9) Sec. INR (0.87-1.13) ABG pH (7.350-7.450) pH Units ABG pCO2 mm Hg ABG pO2 (80.0-90.0) mm Hg ABG HCO3 (20.0-26.0) mmol/L ABG O2 Saturation (95.0-99.0) % ABG O2 Content (0.0-44) ABG Base Excess (-2.0-3.0) mmol/L ABG Hemoglobin (14.0-18.0) gm/dl ABG Carboxyhemoglobin (0.0-5.0) % ABG Methemoglobin (0.0-1.5) % Oxyhemoglobin (95.0-99.0) % FiO2 % Sodium 140 (137-145) mmol/L Potassium 5.0 (3.6-5.0) mmol/L Chloride 99.2 (98-107) mmol/L Carbon Dioxide 20 L (22-30) mmol/L Anion Gap 26 mmol/L BUN 51 H (9-20) mg/dL Creatinine 11.1 H (0.8-1.3) mg/dL Estimated GFR 5 ml/min BUN/Creatinine Ratio 5 % Glucose 194 H (75-100) mg/dL Calcium 8.0 L (8.4-10.2) mg/dL Total Bilirubin 0.30 (0.1-1.2) mg/dL AST 6 (5-40) units/L ALT 6 L (7-56) units/L Alkaline Phosphatase 99 (35-129) units/L Troponin T 0.047 H (0.00-0.029) ng/mL NT-Pro-B Natriuret Pep 58206 H (0-900) pg/mL Total Protein 7.1 (6.3-8.2) g/dL Albumin 3.9 (3.9-5) g/dL Albumin/Globulin Ratio 1.2 % Triglycerides 57 (2-149) mg/dL Cholesterol 122 (50-199) mg/dL LDL Cholesterol Direct 83 (50-130) mg/dL HDL Cholesterol 38 L (40-59) mg/dL Cholesterol/HDL Ratio 3.21 % - EKG Data -: EKG Interpreted by Me (artifact) EKG shows normal: sinus rhythm, ST-T waves (no stemi, ) Rate: normal (79) - Radiology Data Radiology results: report reviewed CHEST 1 VIEW 11/22/2021 3:04 AM INDICATION / CLINICAL INFORMATION: sob. COMPARISON: None available. FINDINGS: SUPPORT DEVICES: None. HEART / MEDIASTINUM: No significant abnormality. LUNGS / PLEURA: Mild increased interstitial prominence with increased pulmonary vascularity No pneumothorax. ADDITIONAL FINDINGS: No significant additional findings. IMPRESSION: 1. Increased pulmonary vascularity and mild interstitial edema - Medical Decision Making ekg requested and pending at dispo mild trop elevation noted, pt does not have cp and could be due to renal insuf Patient's chest x-ray suggestive of pulmonary edema requiring BiPAP oxygen support. Nephrology consulted to arrange for dialysis in a.m. Pt to be admitted to the hospitalist service for treatment Critical Care Time: Yes Critical care time in (mins) excluding proc time.: 35 Critical care attestation.: If time is entered above; I have spent that time in minutes in the direct care of this critically ill patient, excluding procedure time. Critical Care Time: 35 Minutes of critical care time excluding procedures were used in the care of the patient. Patient required BiPAP support immediately on arrival for acute respiratory failure with hypoxia. Patient required consultation with nephrology for urgent dialysis in the a.m. ED Disposition Clinical Impression: Pulmonary edema, ESRD needing dialysis, Acute respiratory failure with hypoxemia, History of COVID-19 Disposition: ADMITTED INPATIENT Is pt being admited?: Yes Condition: Stable Time of Disposition: 05:39 (Dr Feldman/hospitist)
--- NOTE | 2021-11-22 04:11 | XRay Report ---
CHEST 1 VIEW 11/22/2021 3:04 AM INDICATION / CLINICAL INFORMATION: sob. COMPARISON: None available. FINDINGS: SUPPORT DEVICES: None. HEART / MEDIASTINUM: No significant abnormality. LUNGS / PLEURA: Mild increased interstitial prominence with increased pulmonary vascularity No pneumo thorax. ADDITIONAL FINDINGS: No significant additional findings. IMPRESSION: 1. Increased pulmonary vascularity and mild interstitial edema Signer Name: Jc Alas MD Signed: 11/22/2021 4:07 AM Workstation Name: [id number]
[2021-11-22 04:38] LABS: Basophils # (Auto) 0.1 K/mm3 (0.0-0.1); Basophils % (Auto) 0.8 % (0.0-1.8); Eosinophils # (Auto) 0.2 K/mm3 (0.0-0.4); Hematocrit 28.8 % (35.5-45.6); Hemoglobin 9.5 gm/dl (11.8-15.2); Lymphocytes # (Auto) 0.9 K/mm3 (1.2-5.4); Lymphocytes % (Auto) 11.8 % (13.4-35.0); Mean Corpuscular HGB Conc 33 % (32-34); Mean Corpuscular Volume 95 fl (84-94); Monocytes # (Auto) 0.6 K/mm3 (0.0-0.8); Monocytes % (Auto) 8.6 % (0.0-7.3); Platelet Count 200 K/mm3 (140-440); Red Blood Count 3.02 M/mm3 (3.65-5.03); Red Cell Distribution Width 13.2 % (13.2-15.2)
[2021-11-22 04:40] LABS: ABG HCO3 21.6 mmol/L (20.0-26.0); ABG Methemoglobin 0.5 % (0.0-1.5); ABG Oxygen Saturation 98.9 % (95.0-99.0); ABG PCO2 41.4 mm Hg; ABG PH 7.335 pH Units (7.350-7.450); ABG PO2 163.4 mm Hg (80.0-90.0)
[2021-11-22 04:47] LABS: INR 0.98 (0.87-1.13)
[2021-11-22 05:00] LABS: Albumin 3.9 g/dL (3.9-5)
[2021-11-22 05:11] LABS: Chol/HDL Ratio 3.21 %
[2021-11-22] MEDS ORDERED: MORPHINE 2 MG/1 ML INJ IV PRN (06:04)
[2021-11-22] MEDS ORDERED: ACETAMINOPHEN 325 MG TAB PO PRN (06:04)
[2021-11-22] MEDS ORDERED: ONDANSETRON 4 MG/2 ML INJ IV PRN (06:04)
[2021-11-22] MEDS ORDERED: DEXTROSE 50% IN WATER (25GM) 50 ML SYRINGE IV PRN (06:04)
[2021-11-22] MEDS ORDERED: MAGNESIUM HYDROXIDE (MOM) ORAL LIQD UDC PO PRN (06:04)
[2021-11-22] MEDS ORDERED: MORPHINE 4 MG/1 ML INJ IV PRN (06:04)
--- NOTE | 2021-11-22 06:14 | History and Physical Report ---
History of Present Illness Date of examination: 11/22/21 Date of admission: 11/22/2021 Chief complaint: Shortness of breath History of present illness: 76-year-old male with with known history of end-stage renal disease on dialysisMonday, Wednesdays and Fridays, coronary artery disease, diabetes mellitus and hypertension brought into the emergency room via EMS today for complaints of shortness of breath. Shortness of breath was said to have started few hours prior to reporting to the emergency room. Oxygen saturation upon arrival of EMS was about 86% which later improved to about 89% on nonrebreather. He was subsequently placed on CPAP in route to the hospital. He was treated with some nebulizing treatments prior to arrival. Patient indicates that he was at a [facility] facility recently for Covid pneumonia. He denies any fever or chills, no chest pain, no headache or dizziness and no diaphoresis. Patient denies any nausea or vomiting, no diarrhea and no abdominal pain. Work-up in the emergency room today, significant findings on labs were BUN of 51 and creatinine of 11.1. Chest x-ray reveals increased pulmonary vascularity and mild interstitial edema. [employer] Vice President on-call has been consulted by the ER physician for possible dialysi s this AM. Past History Past Medical History: CAD, diabetes, dialysis, ESRD, hypertension, other (COVID- 19 pneumonia,BORN w/PELVIC RT KIDNEY, MWF) Social history: no significant social history Family history: no significant family history Medications and Allergies Allergies Allergy/AdvReac Type Severity Reaction Status Date / Time No Known Allergies Allergy Verified 09/13/14 23:38 Home Medications Medication Instructions Recorded Confirmed Last Taken Type lisinopriL [Zestril TAB] 20 mg PO DAILY 09/13/14 05/08/19 09/13/14 History Aspirin 81 mg PO DAILY 05/08/19 05/08/19 Unknown History AtorvaSTATin [Lipitor] 40 mg PO QHS 05/08/19 05/08/19 Unknown History Plavix 75 mg PO DAILY 05/08/19 05/08/19 Unknown History Ramelteon 8 mg PO QHS 05/08/19 05/08/19 Unknown History amLODIPine 10 mg PO DAILY 05/08/19 05/08/19 Unknown History carvediloL [Coreg] 25 mg PO BID 07/10/19 07/10/19 Unknown History Review of Systems Constitutional: no fever, no chills Ears, nose, mouth and throat: no nasal congestion, no sore throat Cardiovascular: no chest pain, no palpitations Respiratory: shortness of breath, no cough Gastrointestinal: no abdominal pain, no nausea, no vomiting, no diarrhea Genitourinary Male: no dysuria, no hematuria, no flank pain, no nocturia Musculoskeletal: no neck pain, no low back pain Integumentary: no rash, no pruritis Neurological: no headaches, no confusion Psychiatric: no anxiety, no depression Endocrine: no polyphagia, no polydipsia, no polyuria, no nocturia Exam - Constitutional Vitals: Temp Pulse Resp BP Pulse Ox 95 H 23 167/95 100 11/22/21 04:00 11/22/21 04:00 11/22/21 04:00 11/22/21 04:00 General appearance: Present: mild distress (On BiPAP), well-nourished - EENT Eyes: Present: PERRL, EOM intact. Absent: scleral icterus ENT: hearing intact, clear oral mucosa, dentition normal - Neck Neck: Present: supple, normal ROM - Respiratory Respiratory effort: normal Respiratory: bilateral: rales - Cardiovascular Rhythm: regular Heart Sounds: Present: S1 & S2. Absent: gallop, systolic murmur, diastolic murmur, rub, click - Extremities Extremities: no ischemia, pulses intact, pulses symmetrical, No edema, normal temperature, normal color, Full ROM, abnormal (Left upper extremity AV fistula) Peripheral Pulses: within normal limits - Abdominal General gastrointestinal: Present: soft, non-tender, non-distended, normal bowel sounds. Absent: mass - Integumentary Integumentary: Present: clear, warm, dry, normal turgor. Absent: rash - Musculoskeletal Musculoskeletal: strength equal bilaterally - Psychiatric Psychiatric: appropriate mood/affect, intact judgment & insight, memory intact, cooperative - Neurologic Neurologic: CNII-XII intact, no focal deficits, moves all extremities HEART Score - HEART Score Troponin: Troponin T 0.047 ng/mL (0.00-0.029) H 11/22/21 04:00 Results - Labs CBC & Chem 7: 11/22/21 04:00 11/22/21 04:00 Labs: Abnormal lab results 11/22/21 11/22/21 11/22/21 Range/Units 03:57 04:00 04:00 RBC 3.02 L (3.65-5.03) M/mm3 Hgb 9.5 L (11.8-15.2) gm/dl Hct 28.8 L (35.5-45.6) % MCV 95 H (84-94) fl Lymph % (Auto) 11.8 L (13.4-35.0) % [place] % (Auto) 8.6 H (0.0-7.3) % Lymph # (Auto) 0.9 L (1.2-5.4) K/mm3 Seg Neutrophils % 75.8 H (40.0-70.0) % ABG pH 7.335 L (7.350-7.450) pH Units ABG pO2 163.4 H (80.0-90.0) mm Hg ABG Base Excess -4.0 L (-2.0-3.0) mmol/L ABG Hemoglobin 8.9 L (14.0-18.0) gm/dl Carbon Dioxide 20 L (22-30) mmol/L BUN 51 H (9-20) mg/dL Creatinine 11.1 H (0.8-1.3) mg/dL Glucose 194 H (75-100) mg/dL Calcium 8.0 L (8.4-10.2) mg/dL ALT 6 L (7-56) units/L Troponin T 0.047 H (0.00-0.029) ng/mL NT-Pro-B Natriuret Pep 48791 H (0-900) pg/mL HDL Cholesterol 38 L (40-59) mg/dL Assessment and Plan - Patient Problems (1) Acute respiratory failure with hypoxemia Status: Acute Plan to address problem: Possible secondary to underlying pneumonia versus pulmonary edema. Patient has been placed on BiPAP. We will request pulmonology evaluation. (2) ESRD (end stage renal disease) Status: Acute Plan to address problem: Patient gets dialysis on Mondays, Wednesdays and Monday. [employer] Vice President has been consulted for possible dialysis this AM. (3) HTN (hypertension) Status: Acute Plan to address problem: We will resume routine home medications once reconciled. Will monitor vital signs closely. (4) History of COVID-19 Status: Acute Plan to address problem: Patient was seen at [place] facility few days ago for Covid pneumonia. We will consult infectious disease for further evaluation and recommendations. (5) Pulmonary edema Status: Acute Plan to address problem: Possibly secondary to the end-stage renal disease. Patient awaits dialysis. (6) DVT prophylaxis Status: Acute Plan to address problem: Patient placed on subcutaneous heparin. (7) Full code status Status: Acute Plan to address problem: Patient is full code.
[2021-11-22] MEDS ORDERED: hydrALAZINE 20 MG/1 ML INJ IV PRN (06:26)
[2021-11-22] MEDS ORDERED: INSULIN LISPRO 100 UNIT/ML SUB-Q SCH (07:30)
[2021-11-22] MEDS ORDERED: SODIUM CHLORIDE 0.9% 100 ML IV PRN (09:00)
[2021-11-22] MEDS ORDERED: EPOETIN ALFA-EPBX 10,000 UNIT/1 ML VIAL IV PRN (09:00)
--- NOTE | 2021-11-22 10:00 | Event Note ---
Date: 11/22/21 Patient is being followed by [facility] Nephrology, changed consult. Discussed with Dr Guo.
--- NOTE | 2021-11-22 10:33 | Consultation ---
History of Present Illness - Reason for Consult Consult date: 11/22/21 end stage renal disease - History of Present Illness This is a 76 year-old man with ESRD who presents for shortness of breath Patient usually dialyzes MWF at [facility]. Last HD 11/19, but only ran for two hours due to staffing issues and left well above EDW. Denies any recent issues with HD, including dizziness, lightheadedness, cramping, chest pain on HD. Came to ED this AM as he felt short of breath, knew he would not make it to his usual HD session. Currently, patient denies any issues including access issues, nausea, vomiting, headaches. Seen on HD- breathing getter better. Past History Past Medical History: CAD, diabetes, dialysis, ESRD, hypertension, other (COVID- 19 pneumonia,BORN w/PELVIC RT KIDNEY, MWF) Social history: no significant social history Family history: no significant family history Medications and Allergies Allergies Allergy/AdvReac Type Severity Reaction Status Date / Time No Known Allergies Allergy Verified 09/13/14 23:38 Home Medications Medication Instructions Recorded Confirmed Last Taken Type lisinopriL [Zestril TAB] 20 mg PO DAILY 09/13/14 05/08/19 09/13/14 History Aspirin 81 mg PO DAILY 05/08/19 05/08/19 Unknown History AtorvaSTATin [Lipitor] 40 mg PO QHS 05/08/19 05/08/19 Unknown History Plavix 75 mg PO DAILY 05/08/19 05/08/19 Unknown History Ramelteon 8 mg PO QHS 05/08/19 05/08/19 Unknown History amLODIPine 10 mg PO DAILY 05/08/19 05/08/19 Unknown History carvediloL [Coreg] 25 mg PO BID 05/08/19 05/08/19 Unknown History Active Meds: Active Medications Acetaminophen (Acetaminophen 325 Mg Tab) 650 mg PO Q4H PRN PRN Reason: Pain MILD(1-3)/Fever >100.5/[place]ATSON Dextrose (Dextrose 50% In Water (25gm) 50 Ml Syringe) 0 ml IV Q30MIN PRN; Protocol PRN Reason: Hypoglycemia Epoetin Elia-epbx (Epoetin Elia-Epbx 10,000 Unit/1 Ml Vial) 10,000 unit IV JOSEPH PRN PRN Reason: hemodialysis Hydralazine HCl (Hydralazine 20 Mg/1 Ml Inj) 10 mg IV Q4H PRN PRN Reason: Blood Pressure Sodium Chloride (Nacl 0.9%) 100 mls @ 999 mls/hr IV JOSEPH PRN PRN Reason: Hypotension Insulin Human Lispro (Insulin Lispro 100 Unit/Ml) 0 unit SUB-Q ACHS ESCOBAR; Protocol Magnesium Hydroxide (Magnesium Hydroxide (Mom) Oral Liqd Udc) 30 ml PO Q4H PRN PRN Reason: Constipation Morphine Sulfate (Morphine 2 Mg/1 Ml Inj) 2 mg IV Q4H PRN PRN Reason: Pain, Moderate (4-6) Morphine Sulfate (Morphine 4 Mg/1 Ml Inj) 4 mg IV Q4H PRN PRN Reason: Pain , Severe (7-10) Ondansetron HCl (Ondansetron 4 Mg/2 Ml Inj) 4 mg IV Q8H PRN PRN Reason: Nausea And Vomiting Sodium Chloride (Sodium Chloride 0.9% 10 Ml Flush Syringe) 10 ml IV BID ESCOBAR Sodium Chloride (Sodium Chloride 0.9% 10 Ml Flush Syringe) 10 ml IV PRN PRN PRN Reason: LINE FLUSH Review of Systems All systems: negative (as per HPI) Exam - Vital Signs Vital signs: Vital Signs Resp 29 H 11/22/21 03:43 - Physical Exam Narrative exam: Constitutional: no acute distress Head: NC/AT Neck: supple Lungs: clear to auscultation CV: RRR, no M/R/G Abdomen: soft, non-tender, bowel sounds present Back: nontender Extremities: 2+ edema, pulses WNL Skin: intact Neuro: no focal deficits, alert and oriented x4 Results - Lab Results 11/22/21 04:00 11/22/21 04:00 Most recent lab results ABG pH 7.335 pH Units (7.350-7.450) L 11/22/21 03:57 ABG pCO2 41.4 mm Hg 11/22/21 03:57 ABG pO2 163.4 mm Hg (80.0-90.0) H 11/22/21 03:57 ABG HCO3 21.6 mmol/L (20.0-26.0) 11/22/21 03:57 ABG O2 Saturation 98.9 % (95.0-99.0) 11/22/21 03:57 Calcium 8.0 mg/dL (8.4-10.2) L 11/22/21 04:00 Assessment and Plan This is a 76 year old man with ESRD who presents with volume overload. # ESRD: HD today for volume, plan to continue MWF or prn while inpatient - daily labs - renally dose meds - avoid nephrotoxins - renal diet - verbal consent obtained for HD - note COVID-19 test pending; if positive, will need placement at [facility] clinic # Anemia: last hemoglobin 9.5, ESAs with HD prn # HTN: UF as tolerated. BP high likely due to volume, continue antihypertensives- would restart amlodipine 10mg, carvedilol 25mg BID, telmisartan 40mg per home regimen # Secondary Hyperparathyroidism: continue home binders as needed, vitamin D analogs prn
--- NOTE | 2021-11-22 13:53 | Consultation ---
History of Present Illness Consult date: 11/22/21 Requesting physician: JEN ROBERTSON Reason for consult: hypoxemia History of present illness: 76 y/o male with known ESRD on HD and Diagnosis of COVID from end of September who is admitted with hypertensive emergency secondary and flash pulmonary edema from this in need of HD. Of note, patient was admitted for less than 24 hours to [facility] on Nov 09 not for COVID but for the same thing he is here for today. He was diagnosed with COVID two weeks prior at this HD center and no arrangements were made for him to get HD elese where so he was instructed to go to [place] for HD. He got dialysis and was discharged. CXR there looked way better than here and he was not in volume overload. Not sure if he has missed several sessions since then but his CXR would suggest show. Required bipap but now on 3 liters. Past History Past Medical History: CAD, diabetes, dialysis, ESRD, hypertension, other (COVID- 19 pneumonia,BORN w/PELVIC RT KIDNEY, MWF) Social history: no significant social history Family history: no significant family history Medications and Allergies Allergies Allergy/AdvReac Type Severity Reaction Status Date / Time No Known Allergies Allergy Verified 09/13/14 23:38 Home Medications Medication Instructions Recorded Confirmed Last Taken Type lisinopriL [Zestril TAB] 20 mg PO DAILY 09/13/14 05/08/19 09/13/14 History Aspirin 81 mg PO DAILY 05/08/19 05/08/19 Unknown History AtorvaSTATin [Lipitor] 40 mg PO QHS 05/08/19 05/08/19 Unknown History Plavix 75 mg PO DAILY 05/08/19 05/08/19 Unknown History Ramelteon 8 mg PO QHS 05/08/19 05/08/19 Unknown History amLODIPine 10 mg PO DAILY 05/08/19 05/08/19 Unknown History carvediloL [Coreg] 25 mg PO BID 05/08/19 05/08/19 Unknown History Active Meds: Active Medications Acetaminophen (Acetaminophen 325 Mg Tab) 650 mg PO Q4H PRN PRN Reason: Pain MILD(1-3)/Fever >100.5/WATSON Amlodipine Besylate (Amlodipine 10 Mg Tab) 10 mg PO QDAY ESCOBAR Carvedilol (Carvedilol 25 Mg Tab) 25 mg PO BID ESCOBAR Dextrose (Dextrose 50% In Water (25gm) 50 Ml Syringe) 0 ml IV Q30MIN PRN; Protocol PRN Reason: Hypoglycemia Epoetin Elia-epbx (Epoetin Elia-Epbx 10,000 Unit/1 Ml Vial) 10,000 unit IV JOSEPH PRN PRN Reason: hemodialysis Hydralazine HCl (Hydralazine 20 Mg/1 Ml Inj) 10 mg IV Q4H PRN PRN Reason: Blood Pressure Sodium Chloride (Nacl 0.9%) 100 mls @ 999 mls/hr IV JOSEPH PRN PRN Reason: Hypotension Insulin Human Lispro (Insulin Lispro 100 Unit/Ml) 0 unit SUB-Q ACHS ESCOBAR; Protocol Losartan Potassium (Losartan 50 Mg Tab) 50 mg PO QDAY ESCOBAR Magnesium Hydroxide (Magnesium Hydroxide (Mom) Oral Liqd Udc) 30 ml PO Q4H PRN PRN Reason: Constipation Morphine Sulfate (Morphine 2 Mg/1 Ml Inj) 2 mg IV Q4H PRN PRN Reason: Pain, Moderate (4-6) Morphine Sulfate (Morphine 4 Mg/1 Ml Inj) 4 mg IV Q4H PRN PRN Reason: Pain , Severe (7-10) Ondansetron HCl (Ondansetron 4 Mg/2 Ml Inj) 4 mg IV Q8H PRN PRN Reason: Nausea And Vomiting Sodium Chloride (Sodium Chloride 0.9% 10 Ml Flush Syringe) 10 ml IV BID ESCOBAR Sodium Chloride (Sodium Chloride 0.9% 10 Ml Flush Syringe) 10 ml IV PRN PRN PRN Reason: LINE FLUSH Review of Systems All systems: negative Physical Examination Vital signs: Vital Signs Resp 29 H 11/22/21 03:43 General appearance: no acute distress, alert, other (obese) Eyes: non-icteric Neck: supple Ascultation: Bilateral: rales Results - Laboratory Findings CBC and BMP: 11/22/21 04:00 11/22/21 04:00 ABG ABG pH 7.335 pH Units (7.350-7.450) L 11/22/21 03:57 ABG pCO2 41.4 mm Hg 11/22/21 03:57 ABG pO2 163.4 mm Hg (80.0-90.0) H 11/22/21 03:57 ABG O2 Saturation 98.9 % (95.0-99.0) 11/22/21 03:57 PT/INR, D-dimer PT 14.1 Sec. (12.2-14.9) 11/22/21 04:00 INR 0.98 (0.87-1.13) 11/22/21 04:00 Abnormal lab findings: Abnormal Labs 11/22/21 11/22/21 11/22/21 03:57 04:00 04:00 RBC 3.02 L Hgb 9.5 L Hct 28.8 L MCV 95 H Lymph % (Auto) 11.8 L [place] % (Auto) 8.6 H Lymph # (Auto) 0.9 L Seg Neutrophils % 75.8 H ABG pH 7.335 L ABG pO2 163.4 H ABG Base Excess -4.0 L ABG Hemoglobin 8.9 L Carbon Dioxide 20 L BUN 51 H Creatinine 11.1 H Glucose 194 H Calcium 8.0 L ALT 6 L Troponin T 0.047 H NT-Pro-B Natriuret Pep 51359 H HDL Cholesterol 38 L 11/22/21 11/22/21 08:25 10:05 RBC Hgb Hct MCV Lymph % (Auto) [place] % (Auto) Lymph # (Auto) Seg Neutrophils % ABG pH ABG pO2 ABG Base Excess ABG Hemoglobin Carbon Dioxide BUN Creatinine Glucose Calcium ALT Troponin T 0.044 H 0.064 H D NT-Pro-B Natriuret Pep HDL Cholesterol - Diagnostic Findings Chest x-ray: image reviewed (pulmonar edema with cardiomegaly) Assessment and Plan 76 y/o male with acute respiratory failure secondary to Pulmonary Edema from Hypertensive Emergency due to lack of HD 1. Wean FiO2 for sats >88% 2. Patient appears to not need treatment for COVID. He may still be positive given his renal disease but is likely not infectious. Can clear with infection control 3. BP control per renal 4. HD per renal, may need another session tomorrow
--- NOTE | 2021-11-22 14:05 | Event Note ---
Date: 11/22/21 Patient was seen and examined in the emergency department. Reports shortness of breath after straining from his renal diet. Chest x-ray reviewed. Currently on 3 L nasal cannula. He was recently released from the hospital and treated for Covid pneumonia. Will be dialyzed today. Pending pulmonology consult.
[2021-11-22] MEDS ORDERED: SODIUM CHLORIDE 0.9% 50 ML IVPB IV PRN (15:25)
[2021-11-22] MEDS ORDERED: carvediloL 25 MG TAB PO SCH (22:00)
[2021-11-23 05:25] LABS: Hematocrit 25.2 % (35.5-45.6); Hemoglobin 8.5 gm/dl (11.8-15.2); Mean Corpuscular HGB Conc 34 % (32-34); Mean Corpuscular Volume 95 fl (84-94); Platelet Count 156 K/mm3 (140-440); Red Blood Count 2.66 M/mm3 (3.65-5.03)
[2021-11-23 05:39] LABS: Calcium 8.2 mg/dL (8.4-10.2)
[2021-11-23 06:43] LABS: Basophils % (Manual) 0 % (0.0-1.8); Total Cells Counted 100
[2021-11-23 06:45] LABS: Schistocytes Few
[2021-11-23 06:46] LABS: Platelet Estimate Consistent w Auto
[2021-11-23 07:44] VITALS: BP 178/89
--- NOTE | 2021-11-23 08:53 | Progress Note ---
Assessment and Plan Assessment and plan: 76-year-old male with with known history of end-stage renal disease on dialysisMonday, Wednesdays and Fridays, coronary artery disease, diabetes mellitus and hypertension brought into the emergency room via EMS today for complaints of shortness of breath. Shortness of breath was said to have started few hours prior to reporting to the emergency room. Oxygen saturation upon arrival of EMS was about 86% which later improved to about 89% on nonrebreather. He was subsequently placed on CPAP in route to the hospital. He was treated with some nebulizing treatments prior to arrival. Patient indicates that he was at a [facility] facility recently for similar Symptoms. Patient tested positive for Covid in 09/2021 but apparently did not need treatment. He denies any fever or chills, no chest pain, no headache or dizziness and no diaphoresis. Patient denies any nausea or vomiting, no diarrhea and no abdominal pain. Work-up in the emergency room today, significant findings on labs were BUN of 51 and creatinine of 11.1. Chest x-ray reveals increased pulmonary vascularity and mild interstitial edema. [employer] Operator on-call has been consulted by the ER physician for possible dialysis this AM. (1) Acute respiratory failure with hypoxemia Status: Acute Plan to address problem: Likely from pulmonary moderate to insufficient hemodialysis as he could not complete his dialysis session due to staffing problems at dialysis center. Patient has been placed on BiPAP in ED, respiratory dyspnea resolved after hemodialysis yesterday. Patient is breathing normally on room air today. (2) ESRD (end stage renal disease) Status: Acute Plan to address problem: Patient gets dialysis on Mondays, Wednesdays and Monday. [employer] Operator has been consulted and received hemodialysis yesterday. Volume overload, respiratory distress and hypoxia resolved after hemodialysis. Patient is breathing well on room air currently. Nephrology cleared him for discharge. Patient will continue his hemodialysis as outpatient on Mondays, Wednesdays and Fridays. (3) HTN (hypertension) Status: Acute Plan to address problem: We will resume routine home medications once reconciled. Will monitor vital signs closely. (4) History of COVID-19 Status: Acute Plan to address problem: Patient was seen at [facility] few days ago for reported for similar symptoms, likely due to volume overload Hypoxia and respiratory's resolved after hemodialysis. Currently no active COVID-19 symptoms. (5) Pulmonary edema Status: Acute Plan to address problem: Due to inadequate/incomplete hemodialysis due to staffing issues at dialysis center. Resolved with dialysis. (6) DVT prophylaxis Status: Acute Plan to address problem: Patient placed on subcutaneous heparin. (7) Full code status Status: Acute Plan to address problem: Patient is full code. History Interval history: Patient is alert and oriented no acute distress. Is on room air. Nephrology cleared for discharge. He will get his scheduled dialysis tomorrow, Monday. He is eager to go home. No fever or chills. No cough. No chest pain, palpitations or dyspnea. Hospitalist Physical - Constitutional Vitals: Temp Pulse Resp BP Pulse Ox 98.7 F 77 80 H 178/89 97 11/23/21 07:58 11/22/21 12:30 11/22/21 12:30 11/23/21 07:31 11/23/21 07:35 General appearance: Present: mild distress (On BiPAP), well-nourished - EENT Eyes: Present: PERRL, EOM intact ENT: clear oral mucosa - Neck Neck: Present: supple - Respiratory Respiratory effort: normal Respiratory: bilateral: CTA - Cardiovascular Rhythm: regular - Extremities Extremity abnormal: edema (1-2+ pretibial edema) - Abdominal General gastrointestinal: soft, non-tender - Integumentary Integumentary: Absent: rash - Psychiatric Psychiatric: appropriate mood/affect - Neurologic Neurologic: no focal deficits HEART Score - HEART Score Troponin: Troponin T 0.064 ng/mL (0.00-0.029) H D 11/22/21 10:05 Results - Labs CBC & Chem 7: 11/23/21 04:39 11/23/21 04:39 Labs: Laboratory Last Values WBC 5.8 K/mm3 (4.5-11.0) 11/23/21 04:39 RBC 2.66 M/mm3 (3.65-5.03) L 11/23/21 04:39 Hgb 8.5 gm/dl (11.8-15.2) L 11/23/21 04:39 Hct 25.2 % (35.5-45.6) L 11/23/21 04:39 MCV 95 fl (84-94) H 11/23/21 04:39 MCH 32 pg (28-32) 11/23/21 04:39 MCHC 34 % (32-34) 11/23/21 04:39 RDW 13.0 % (13.2-15.2) L 11/23/21 04:39 Plt Count 156 K/mm3 (140-440) 11/23/21 04:39 Lymph % (Auto) 11.8 % (13.4-35.0) L 11/22/21 04:00 [place] % (Auto) Credit Review Analyst 11/23/21 04:39 Eos % (Auto) 3.0 % (0.0-4.3) 11/22/21 04:00 Baso % (Auto) 0.8 % (0.0-1.8) 11/22/21 04:00 Lymph # (Auto) 0.9 K/mm3 (1.2-5.4) L 11/22/21 04:00 [place] # (Auto) 0.6 K/mm3 (0.0-0.8) 11/22/21 04:00 Eos # (Auto) 0.2 K/mm3 (0.0-0.4) 11/22/21 04:00 Baso # (Auto) 0.1 K/mm3 (0.0-0.1) 11/22/21 04:00 Add Manual Diff Complete 11/23/21 04:39 Total Counted 100 11/23/21 04:39 Seg Neutrophils % 75.8 % (40.0-70.0) H 11/22/21 04:00 Seg Neuts % (Manual) 73.0 % (40.0-70.0) H 11/23/21 04:39 Band Neutrophils % 0 % 11/23/21 04:39 Lymphocytes % (Manual) 15.0 % (13.4-35.0) 11/23/21 04:39 Reactive Lymphs % (Man) 0 % 11/23/21 04:39 Monocytes % (Manual) 8.0 % (0.0-7.3) H 11/23/21 04:39 Eosinophils % (Manual) 4.0 % (0.0-4.3) 11/23/21 04:39 Basophils % (Manual) 0 % (0.0-1.8) 11/23/21 04:39 Metamyelocytes % 0 % 11/23/21 04:39 Myelocytes % 0 % 11/23/21 04:39 Promyelocytes % 0 % 11/23/21 04:39 Blast Cells % 0 % 11/23/21 04:39 Nucleated RBC % Not Reportable 11/23/21 04:39 Seg Neutrophils # 5.5 K/mm3 (1.8-7.7) 11/22/21 04:00 Seg Neutrophils # Man 4.2 K/mm3 (1.8-7.7) 11/23/21 04:39 Band Neutrophils # 0.0 K/mm3 11/23/21 04:39 Lymphocytes # (Manual) 0.9 K/mm3 (1.2-5.4) L 11/23/21 04:39 Abs React Lymphs (Man) 0.0 K/mm3 11/23/21 04:39 Monocytes # (Manual) 0.5 K/mm3 (0.0-0.8) 11/23/21 04:39 Eosinophils # (Manual) 0.2 K/mm3 (0.0-0.4) 11/23/21 04:39 Basophils # (Manual) 0.0 K/mm3 (0.0-0.1) 11/23/21 04:39 Metamyelocytes # 0.0 K/mm3 11/23/21 04:39 Myelocytes # 0.0 K/mm3 11/23/21 04:39 Promyelocytes # 0.0 K/mm3 11/23/21 04:39 Blast Cells # 0.0 K/mm3 11/23/21 04:39 WBC Morphology Not Reportable 11/23/21 04:39 Hypersegmented Neuts Not Reportable 11/23/21 04:39 Hyposegmented Neuts Not Reportable 11/23/21 04:39 Hypogranular Neuts Not Reportable 11/23/21 04:39 Smudge Cells Not Reportable 11/23/21 04:39 Toxic Granulation Not Reportable 11/23/21 04:39 Toxic Vacuolation Not Reportable 11/23/21 04:39 Dohle Bodies Not Reportable 11/23/21 04:39 Pelger-Huet Anomaly Not Reportable 11/23/21 04:39 [place]s Not Reportable 11/23/21 04:39 Platelet Estimate Consistent w auto 11/23/21 04:39 Clumped Platelets Not Reportable 11/23/21 04:39 Plt Clumps, EDTA Not Reportable 11/23/21 04:39 Large Platelets Not Reportable 11/23/21 04:39 Giant Platelets Not Reportable 11/23/21 04:39 Platelet Satelliting Not Reportable 11/23/21 04:39 Plt Morphology Comment Not Reportable 11/23/21 04:39 RBC Morphology Not Reportable 11/23/21 04:39 Dimorphic RBCs Not Reportable 11/23/21 04:39 Polychromasia Not Reportable 11/23/21 04:39 Hypochromasia Not Reportable 11/23/21 04:39 Poikilocytosis Not Reportable 11/23/21 04:39 Anisocytosis Not Reportable 11/23/21 04:39 Microcytosis Not Reportable 11/23/21 04:39 Macrocytosis Not Reportable 11/23/21 04:39 Spherocytes Not Reportable 11/23/21 04:39 Pappenheimer Bodies Not Reportable 11/23/21 04:39 Sickle Cells Not Reportable 11/23/21 04:39 Target Cells Not Reportable 11/23/21 04:39 Tear Drop Cells Not Reportable 11/23/21 04:39 Ovalocytes Not Reportable 11/23/21 04:39 Helmet Cells Not Reportable 11/23/21 04:39 [place] Bodies Not Reportable 11/23/21 04:39 Adel Rings Not Reportable 11/23/21 04:39 Barton Cells Not Reportable 11/23/21 04:39 Bite Cells Not Reportable 11/23/21 04:39 Crenated Cell Not Reportable 11/23/21 04:39 Elliptocytes Not Reportable 11/23/21 04:39 Acanthocytes (Spur) Few 11/23/21 04:39 Rouleaux Not Reportable 11/23/21 04:39 Hemoglobin C Crystals Not Reportable 11/23/21 04:39 Schistocytes Few 11/23/21 04:39 Malaria parasites Not Reportable 11/23/21 04:39 Robb Bodies Not Reportable 11/23/21 04:39 Hem Pathologist Commnt No 11/23/21 04:39 PT 14.1 Sec. (12.2-14.9) 11/22/21 04:00 INR 0.98 (0.87-1.13) 11/22/21 04:00 ABG pH 7.335 pH Units (7.350-7.450) L 11/22/21 03:57 ABG pCO2 41.4 mm Hg 11/22/21 03:57 ABG pO2 163.4 mm Hg (80.0-90.0) H 11/22/21 03:57 ABG HCO3 21.6 mmol/L (20.0-26.0) 11/22/21 03:57 ABG O2 Saturation 98.9 % (95.0-99.0) 11/22/21 03:57 ABG O2 Content 12.6 (0.0-44) 11/22/21 03:57 ABG Base Excess -4.0 mmol/L (-2.0-3.0) L 11/22/21 03:57 ABG Hemoglobin 8.9 gm/dl (14.0-18.0) L 11/22/21 03:57 ABG Carboxyhemoglobin 0.8 % (0.0-5.0) 11/22/21 03:57 ABG Methemoglobin 0.5 % (0.0-1.5) 11/22/21 03:57 Oxyhemoglobin 97.6 % (95.0-99.0) 11/22/21 03:57 FiO2 60 % 11/22/21 03:57 Sodium 142 mmol/L (137-145) 11/23/21 04:39 Potassium 3.9 mmol/L (3.6-5.0) D 11/23/21 04:39 Chloride 101.1 mmol/L (98-107) 11/23/21 04:39 Carbon Dioxide 25 mmol/L (22-30) 11/23/21 04:39 Anion Gap 20 mmol/L 11/23/21 04:39 BUN 32 mg/dL (9-20) H 11/23/21 04:39 Creatinine 8.0 mg/dL (0.8-1.3) H 11/23/21 04:39 Estimated GFR 8 ml/min 11/23/21 04:39 BUN/Creatinine Ratio 4 % 11/23/21 04:39 Glucose 100 mg/dL (75-100) 11/23/21 04:39 Calcium 8.2 mg/dL (8.4-10.2) L 11/23/21 04:39 Total Bilirubin 0.30 mg/dL (0.1-1.2) 11/22/21 04:00 AST 6 units/L (5-40) 11/22/21 04:00 ALT 6 units/L (7-56) L 11/22/21 04:00 Alkaline Phosphatase 99 units/L (35-129) 11/22/21 04:00 Troponin T 0.064 ng/mL (0.00-0.029) H D 11/22/21 10:05 NT-Pro-B Natriuret Pep 19756 pg/mL (0-900) H 11/22/21 04:00 Total Protein 7.1 g/dL (6.3-8.2) 11/22/21 04:00 Albumin 3.9 g/dL (3.9-5) 11/22/21 04:00 Albumin/Globulin Ratio 1.2 % 11/22/21 04:00 Triglycerides 57 mg/dL (2-149) 11/22/21 04:00 Cholesterol 122 mg/dL (50-199) 11/22/21 04:00 LDL Cholesterol Direct 83 mg/dL (50-130) 11/22/21 04:00 HDL Cholesterol 38 mg/dL (40-59) L 11/22/21 04:00 Cholesterol/HDL Ratio 3.21 % 11/22/21 04:00 Coronavirus (PCR) Negative (Negative) 11/22/21 08:20 Active Medications - Current Medications Current Medications: Generic Name Dose Route Start Last Admin Trade Name Freq PRN Reason Stop Dose Admin Acetaminophen 650 mg 11/22/21 06:04 Acetaminophen 325 Mg Tab PO Q4H PRN Pain MILD(1-3)/Fever >100.5/WATSON Amlodipine Besylate 10 mg 11/23/21 10:00 Amlodipine 10 Mg Tab PO QDAY ESCOBAR Carvedilol 25 mg 11/22/21 22:00 11/23/21 04:38 Carvedilol 25 Mg Tab PO Not Given BID ESCOBAR Dextrose 0 ml 11/22/21 06:04 Dextrose 50% In Water (25gm) 50 Ml Syringe IV Q30MIN PRN Hypoglycemia Protocol Epoetin Elia-epbx 10,000 unit 11/22/21 09:00 11/22/21 09:15 Epoetin Elia-Epbx 10,000 Unit/1 Ml Vial IV 10,000 unit JOSEPH PRN Administration hemodialysis Hydralazine HCl 10 mg 11/22/21 06:26 11/22/21 18:05 Hydralazine 20 Mg/1 Ml Inj IV 10 mg Q4H PRN Administration Blood Pressure Sodium Chloride 100 mls @ 999 mls/hr 11/22/21 09:00 Nacl 0.9% IV JOSEPH PRN Hypotension Insulin Human Lispro 0 unit 11/22/21 07:30 Insulin Lispro 100 Unit/Ml SUB-Q ACHS ESCOBAR Protocol Losartan Potassium 50 mg 11/23/21 10:00 Losartan 50 Mg Tab PO QDAY ESCOBAR Magnesium Hydroxide 30 ml 11/22/21 06:04 Magnesium Hydroxide (Mom) Oral Liqd Udc PO Q4H PRN Constipation Morphine Sulfate 2 mg 11/22/21 06:04 Morphine 2 Mg/1 Ml Inj IV Q4H PRN Pain, Moderate (4-6) Morphine Sulfate 4 mg 11/22/21 06:04 Morphine 4 Mg/1 Ml Inj IV Q4H PRN Pain , Severe (7-10) Ondansetron HCl 4 mg 11/22/21 06:04 Ondansetron 4 Mg/2 Ml Inj IV Q8H PRN Nausea And Vomiting Sodium Chloride 10 ml 11/22/21 10:00 Sodium Chloride 0.9% 10 Ml Flush Syringe IV BID ESCOBAR Sodium Chloride 10 ml 11/22/21 15:25 Sodium Chloride 0.9% 50 Ml Ivpb IV PRN PRN FLUSH
--- NOTE | 2021-11-23 08:55 | Electrocardiograph Report ---
[facility] Test Date: 2021-11-22 Test Time: 05:44:47 Pat Name: ALDAIR HOANG Department: Room: A366 Gender: M Bag Machine Tender: OMAR : 1945 Requested By: KAITLIN STOVER Order Number: [id number] Reading MD: Sanket Wade Measurements Intervals [place] Rate: 79 P: 82 ID: [id number] QRS: 49 QRSD: 100 T: 3 QT: 401 QTc: 459 Interpretive Statements Sinus rhythm nonspecific st-t Atrial premature complex No previous ECG available for comparison Electronically Signed On 11-23-2021 8:54:42 EST by Sanket Wade
--- NOTE | 2021-11-23 09:22 | Progress Note ---
Assessment and Plan 76 y/o male with acute respiratory failure secondary to Pulmonary Edema from Hypertensive Emergency due to lack of HD 11/23/21: Oxygen off. Sats improved. COVID negative. Will sign off. 1. Wean FiO2 for sats >88% 2. Patient appears to not need treatment for COVID. He may still be positive given his renal disease but is likely not infectious. Can clear with infection control 3. BP control per renal 4. HD per renal, may need another session tomorrow Subjective Date of service: 11/23/21 Interval history: Patient weaned to room air. stable. Objective Vital Signs - 12hr 11/22/21 11/22/21 11/23/21 22:01 23:45 00:01 Temperature Blood Pressure 195/76 166/79 179/90 O2 Sat by Pulse 94 100 100 Oximetry 11/23/21 11/23/21 11/23/21 01:01 02:01 03:01 Temperature Blood Pressure 157/83 154/79 168/72 O2 Sat by Pulse 100 100 100 Oximetry 11/23/21 11/23/21 11/23/21 04:01 04:45 05:01 Temperature Blood Pressure 173/88 173/88 150/77 O2 Sat by Pulse 100 100 100 Oximetry 11/23/21 11/23/21 11/23/21 06:01 06:31 06:45 Temperature Blood Pressure 178/88 178/88 178/88 O2 Sat by Pulse 100 100 100 Oximetry 11/23/21 11/23/21 11/23/21 07:01 07:15 07:31 Temperature Blood Pressure 187/86 187/86 178/89 O2 Sat by Pulse 100 99 98 Oximetry 11/23/21 11/23/21 07:35 07:58 Temperature 98.7 F Blood Pressure O2 Sat by Pulse 97 Oximetry Constitutional: no acute distress, alert, other (obese) Eyes: non-icteric Neck: supple Ascultation: Bilateral: rales CBC and BMP: 11/23/21 04:39 11/23/21 04:39 ABG, PT/INR, D-dimer: ABG ABG pH 7.335 pH Units (7.350-7.450) L 11/22/21 03:57 ABG pCO2 41.4 mm Hg 11/22/21 03:57 ABG pO2 163.4 mm Hg (80.0-90.0) H 11/22/21 03:57 ABG O2 Saturation 98.9 % (95.0-99.0) 11/22/21 03:57 PT/INR, D-dimer PT 14.1 Sec. (12.2-14.9) 11/22/21 04:00 INR 0.98 (0.87-1.13) 11/22/21 04:00 Abnormal lab findings: Abnormal Labs 11/22/21 11/22/21 11/22/21 03:57 04:00 04:00 RBC 3.02 L Hgb 9.5 L Hct 28.8 L MCV 95 H RDW Lymph % (Auto) 11.8 L [place] % (Auto) 8.6 H Lymph # (Auto) 0.9 L Seg Neutrophils % 75.8 H Seg Neuts % (Manual) Monocytes % (Manual) Lymphocytes # (Manual) ABG pH 7.335 L ABG pO2 163.4 H ABG Base Excess -4.0 L ABG Hemoglobin 8.9 L Carbon Dioxide 20 L BUN 51 H Creatinine 11.1 H Glucose 194 H Calcium 8.0 L ALT 6 L Troponin T 0.047 H NT-Pro-B Natriuret Pep 34730 H HDL Cholesterol 38 L 11/22/21 11/22/21 11/23/21 08:25 10:05 04:39 RBC 2.66 L Hgb 8.5 L Hct 25.2 L MCV 95 H RDW 13.0 L Lymph % (Auto) [place] % (Auto) Lymph # (Auto) Seg Neutrophils % Seg Neuts % (Manual) 73.0 H Monocytes % (Manual) 8.0 H Lymphocytes # (Manual) 0.9 L ABG pH ABG pO2 ABG Base Excess ABG Hemoglobin Carbon Dioxide BUN Creatinine Glucose Calcium ALT Troponin T 0.044 H 0.064 H D NT-Pro-B Natriuret Pep HDL Cholesterol 11/23/21 04:39 RBC Hgb Hct MCV RDW Lymph % (Auto) [place] % (Auto) Lymph # (Auto) Seg Neutrophils % Seg Neuts % (Manual) Monocytes % (Manual) Lymphocytes # (Manual) ABG pH ABG pO2 ABG Base Excess ABG Hemoglobin Carbon Dioxide BUN 32 H Creatinine 8.0 H Glucose Calcium 8.2 L ALT Troponin T NT-Pro-B Natriuret Pep HDL Cholesterol
--- NOTE | 2021-11-23 09:47 | Progress Note ---
Assessment and Plan This is a 76 year old man with ESRD who presents with volume overload. # ESRD: HD yesterday for volume, plan to continue MWF or prn while inpatient, no indication for HD/UF removal today per clinical assessment- can be discharged home from renal standpoint and return to home dialysis clinic tomorrow for regular treatment - daily labs - renally dose meds - avoid nephrotoxins - renal diet - verbal consent obtained for HD - COVID-19 negative, can return to [facility] per usual treatment time from medical standpoint # Anemia: last hemoglobin 8.5, ESAs with HD prn # HTN: UF as tolerated. BP high, continue antihypertensives- restarted amlodipine 10mg, carvedilol 25mg BID, telmisartan 40mg per home regimen # Secondary Hyperparathyroidism: continue home binders as needed, vitamin D analogs prn Subjective Date of service: 11/23/21 Interval history: Patient feeling well this AM, denies any further edema, shortness of breath. States that he feels well enough to go home. Objective - Exam Narrative Exam: Constitutional: no acute distress Head: NC/AT Neck: supple Lungs: clear to auscultation CV: RRR, no M/R/G Abdomen: soft, non-tender, bowel sounds present Back: nontender Extremities: trace edema, pulses WNL Skin: intact Neuro: no focal deficits, alert and oriented x4 - Vital Signs Vital signs: Vital Signs - 12hr 11/22/21 11/22/21 11/23/21 22:01 23:45 00:01 Temperature Blood Pressure 195/76 166/79 179/90 O2 Sat by Pulse 94 100 100 Oximetry 11/23/21 11/23/21 11/23/21 01:01 02:01 03:01 Temperature Blood Pressure 157/83 154/79 168/72 O2 Sat by Pulse 100 100 100 Oximetry 11/23/21 11/23/21 11/23/21 04:01 04:45 05:01 Temperature Blood Pressure 173/88 173/88 150/77 O2 Sat by Pulse 100 100 100 Oximetry 11/23/21 11/23/21 11/23/21 06:01 06:31 06:45 Temperature Blood Pressure 178/88 178/88 178/88 O2 Sat by Pulse 100 100 100 Oximetry 11/23/21 11/23/21 11/23/21 07:01 07:15 07:31 Temperature Blood Pressure 187/86 187/86 178/89 O2 Sat by Pulse 100 99 98 Oximetry 11/23/21 11/23/21 07:35 07:58 Temperature 98.7 F Blood Pressure O2 Sat by Pulse 97 Oximetry - Lab 11/23/21 04:39 11/23/21 04:39 Most recent lab results ABG pH 7.335 pH Units (7.350-7.450) L 11/22/21 03:57 ABG pCO2 41.4 mm Hg 11/22/21 03:57 ABG pO2 163.4 mm Hg (80.0-90.0) H 11/22/21 03:57 ABG HCO3 21.6 mmol/L (20.0-26.0) 11/22/21 03:57 ABG O2 Saturation 98.9 % (95.0-99.0) 11/22/21 03:57 Calcium 8.2 mg/dL (8.4-10.2) L 11/23/21 04:39 Medications & Allergies - Medications Allergies/Adverse Reactions: Allergies No Known Allergies Allergy (Verified 09/13/14 23:38) Home Medications: Home Medications Medication Instructions Recorded Confirmed Last Taken Type lisinopriL [Zestril TAB] 20 mg PO DAILY 09/13/14 05/08/19 09/13/14 History Aspirin 81 mg PO DAILY 05/08/19 05/08/19 Unknown History AtorvaSTATin [Lipitor] 40 mg PO QHS 05/08/19 05/08/19 Unknown History Plavix 75 mg PO DAILY 05/08/19 05/08/19 Unknown History Ramelteon 8 mg PO QHS 05/08/19 05/08/19 Unknown History amLODIPine 10 mg PO DAILY 05/08/19 05/08/19 Unknown History carvediloL [Coreg] 25 mg PO BID 05/08/19 05/08/19 Unknown History Active Medications: Generic Name Dose Route Start Last Admin Trade Name Freq PRN Reason Stop Dose Admin Acetaminophen 650 mg 11/22/21 06:04 Acetaminophen 325 Mg Tab PO Q4H PRN Pain MILD(1-3)/Fever >100.5/WATSON Amlodipine Besylate 10 mg 11/23/21 10:00 Amlodipine 10 Mg Tab PO QDAY ESCOBAR Carvedilol 25 mg 11/22/21 22:00 11/23/21 04:38 Carvedilol 25 Mg Tab PO Not Given BID [facility] Dextrose 0 ml 11/22/21 06:04 Dextrose 50% In Water (25gm) 50 Ml Syringe IV Q30MIN PRN Hypoglycemia Protocol Epoetin Elia-epbx 10,000 unit 11/22/21 09:00 11/22/21 09:15 Epoetin Elia-Epbx 10,000 Unit/1 Ml Vial IV 10,000 unit JOSEPH PRN Administration hemodialysis Hydralazine HCl 10 mg 11/22/21 06:26 11/22/21 18:05 Hydralazine 20 Mg/1 Ml Inj IV 10 mg Q4H PRN Administration Blood Pressure Sodium Chloride 100 mls @ 999 mls/hr 11/22/21 09:00 Nacl 0.9% IV JOSEPH PRN Hypotension Insulin Human Lispro 0 unit 11/22/21 07:30 Insulin Lispro 100 Unit/Ml SUB-Q ACHS [facility] Protocol Losartan Potassium 50 mg 11/23/21 10:00 Losartan 50 Mg Tab PO QDAY [facility] Magnesium Hydroxide 30 ml 11/22/21 06:04 Magnesium Hydroxide (Mom) Oral Liqd Udc PO Q4H PRN Constipation Ondansetron HCl 4 mg 11/22/21 06:04 Ondansetron 4 Mg/2 Ml Inj IV Q8H PRN Nausea And Vomiting Sodium Chloride 10 ml 11/22/21 10:00 Sodium Chloride 0.9% 10 Ml Flush Syringe IV BID ESCOBAR Sodium Chloride 10 ml 11/22/21 15:25 Sodium Chloride 0.9% 50 Ml Ivpb IV PRN PRN FLUSH
[2021-11-23] MEDS ORDERED: LOSARTAN 50 MG TAB PO SCH (10:00)
[2021-11-23] MEDS ORDERED: amLODIPine 10 MG TAB PO SCH (10:00)
--- NOTE | 2021-11-23 15:47 | Discharge Summary ---
Providers - Providers Date of Admission: 11/22/21 14:05 Date of discharge: 11/22/21 Attending physician: MARCE ALBRIGHT MD 11/22/21 06:23 Consult to Physician [CONS] Routine Comment: Consulting Provider: DEMOND EVANGELISTA Physician Instructions: Reason For Exam: Acute respiratory failure with hypoxemia 11/22/21 09:57 Consult to Physician [CONS] Routine Comment: Consulting Provider: LETICIA HENNING Physician Instructions: Reason For Exam: ESRD 11/23/21 13:24 Physical Therapy Evaluation and Treat [CONS] Urgent Comment: For discahrge plannine Reason For Exam: To evaluate mobility status 11/23/21 13:25 Occupational Therapy Evaluate and Treat [CONS] Urgent Comment: For discharge plannine Reason For Exam: To evaluate ADL status Primary care physician: NEWS REPORTER Hospitalization Condition: Stable Hospital course: 76-year-old male with with known history of end-stage renal disease on dialysisMonday, Wednesdays and Fridays, coronary artery disease, diabetes mellitus and hypertension brought into the emergency room via EMS today for complaints of shortness of breath. Shortness of breath was said to have started few hours prior to reporting to the emergency room. Oxygen saturation upon arrival of EMS was about 86% which later improved to about 89% on nonrebreather. He was subsequently placed on CPAP in route to the hospital. He was treated with some nebulizing treatments prior to arrival. Patient indicates that he was at a [facility] facility recently for similar Symptoms. Patient tested positive for Covid in 09/2021 but apparently did not need treatment. He denies any fever or chills, no chest pain, no headache or dizziness and no diaphoresis. Patient denies any nausea or vo miting, no diarrhea and no abdominal pain. Work-up in the emergency room today, significant findings on labs were BUN of 51 and creatinine of 11.1. Chest x-ray reveals increased pulmonary vascularity and mild interstitial edema. Bulk Intake Worker on-call has been consulted by the ER physician for possible dialysis this AM. (1) Acute respiratory failure with hypoxemia Status: Acute Plan to address problem: Likely from pulmonary edema/volume overload due to insufficient hemodialysis as he could not complete his dialysis session due to staffing problems at dialysis center. Patient has been placed on BiPAP in ED, respiratory dyspnea resolved after hemodialysis yesterday. Patient is breathing normally on room air today. (2) ESRD (end stage renal disease) Status: Acute Plan to address problem: Patient gets dialysis on Mondays, Wednesdays and Monday. Bulk Intake Worker has been consulted and received hemodialysis yesterday. Volume overload, respiratory distress and hypoxia resolved after hemodialysis. Patient is breathing well on room air currently. Nephrology cleared him for discharge. Patient will continue his hemodialysis as outpatient on Mondays, Wednesdays and Fridays. (3) HTN (hypertension) Status: Acute Plan to address problem: We will resume routine home medications once reconciled. Will monitor vital signs closely. (4) History of COVID-19 Status: Acute Plan to address problem: Patient was seen at [facility] few days ago for reported r similar symptoms, likely due to volume overload Hypoxia and respiratory's resolved after hemodialysis. PCR test negative for COVID-19. Currently no active COVID-19 symptoms. (5) Pulmonary edema Status: Acute Plan to address problem: Due to inadequate/incomplete hemodialysis due to staffing issues at dialysis center. Resolved with dialysis. Disposition: 01 HOME / SELF CARE / HOMELESS Final Discharge Diagnosis (Prints w/discharge instructions): Acute pulmonary edema/volume overload due to acute hemodialysis, resolved with hemodialysis. ESRD on hemodialysis. Hypertension. Covid PCR test negative Core Measure Documentation - Palliative Care Palliative Care/ Comfort Measures: Not Applicable - Core Measures Any of the following diagnoses?: none Exam - Constitutional Vitals: Temp Pulse Resp BP Pulse Ox 98.7 F 77 80 H 178/89 97 11/23/21 07:58 11/22/21 12:30 11/22/21 12:30 11/23/21 07:31 11/23/21 07:35 General appearance: Present: no acute distress - EENT Eyes: Present: PERRL, EOM intact ENT: clear oral mucosa - Neck Neck: Present: supple - Respiratory Respiratory effort: normal Respiratory: bilateral: CTA - Cardiovascular Rhythm: regular - Extremities Extremity abnormal: edema (1-2+ pretibial edema) - Abdominal General gastrointestinal: Present: soft, non-tender - Integumentary Integumentary: Absent: rash - Musculoskeletal Musculoskeletal: strength equal bilaterally - Psychiatric Psychiatric: appropriate mood/affect - Neurologic Neurologic: no focal deficits Plan Activity: advance as tolerated Diet: renal Special Instructions: restrict fluid intake to (1200 ml) Follow up with: PRIMARY CAREMD [Primary Care Provider] - 7 Days
[2021-11-23 19:32] LABS: Hepatitis B Surface Antigen Non-Reactive (Negative); Hepatitis C Virus Antibody Non-Reactive (NonReactive)
== END 2021-11-23 17:47 | disposition home or self-care (01) | DRG 640 ==
LOC: ED 03:30 → 3A 06:04 → OBSVTOIN 14:05 → 3A 11-23 06:24
PROVIDERS: ADMIT Internal Medicine Geriatric Medicine; ATTEND Internal Medicine
PROC: 4A033R1 Measurement of Arterial Saturation, Peripheral, Percutaneous Approach (ICD-10-PCS; principal; 2021-11-22)
PROC: 5A1D70Z Performance of Urinary Filtration, Intermittent, Less than 6 Hours Per Day (ICD-10-PCS; 2021-11-22)
PROC: 5A09357 Assistance with Respiratory Ventilation, Less than 24 Consecutive Hours, Continuous Positive Airway Pressure (ICD-10-PCS; 2021-11-22)
DX: E87.70 Fluid overload, unspecified (principal); J96.01 Acute respiratory failure with hypoxia; N18.6 End stage renal disease; J81.0 Acute pulmonary edema; N25.81 Secondary hyperparathyroidism of renal origin; I16.1 Hypertensive emergency; I12.0 Hypertensive chronic kidney disease with stage 5 chronic kidney disease or end stage renal disease; Z86.16 Personal history of COVID-19; Z20.822 Contact with and (suspected) exposure to COVID-19; I25.10 Atherosclerotic heart disease of native coronary artery without angina pectoris; E11.22 Type 2 diabetes mellitus with diabetic chronic kidney disease; Z99.2 Dependence on renal dialysis; Z79.899 Other long term (current) drug therapy; Z79.82 Long term (current) use of aspirin; D64.9 Anemia, unspecified
CPT/HCPCS: 36415; 71045; 80048; 80053; 80061; 80074; 82803; 82962; 83880; 84484; 85007; 85025; 85610; 93005; 93010; 94760; G0378; J0360; J0885; U0003